=== PATIENT | female | born 1945 | race Caucasian/White ===

== ENCOUNTER → 2017-09-17 07:23 | Outpatient (CLI) | payer MEDICARE, SELFPAY ==
--- NOTE | 2017-09-17 07:40 | BI_ITS ---
MAMMOGRAPHY - BILATERAL SCREENING REASON FOR EXAM: Female, 72 years old. Routine annual screening examination. PERTINENT HISTORY: Non-contributory. Prior left excisional breast biopsy. TECHNIQUE: Digital bilateral breast iglesia (3D mammographic acquisition) in the CC and MLO projections. 2-D mediolateral oblique (MLO) and craniocaudad (CC) views of both breasts were obtained. CAD: Full Field Digital Mammography with Computer Added Detection was performed. COMPARISON: Comparison is made with prior study dated September 13, 2016 and September 07, 2015. FINDINGS: Breast Composition: The breasts are heterogeneously dense, which may obscure small masses. There are no dominant masses or suspicious calcifications. Stable benign-appearing bilateral axillary lymph nodes. No other significant abnormalities are identified. There has been no significant change since the prior study. BI/SCREENING MAMM (CAD), BILAT IMPRESSION: Stable bilateral screening mammogram. Yearly follow-up mammogram recommended. (A) ASSESSMENT CATEGORY: BIRADS Category 2: Benign. A letter regarding these results will be sent to the patient by the facility within 30 days. Approximately 10% of breast cancers are not detected by mammography. A normal mammogram should not delay biopsy of a clinically suspicious abnormality. [id number] Electronically Signed: Pablo Gonzales MD at 9:28 EDT Tel [phone], Service support ,
== END ==
PROVIDERS: Family Provider Family Medicine; PCP Family Medicine; Visit Provider Family Medicine
DX: Z12.31 Encounter for screening mammogram for malignant neoplasm of breast (principal)
CPT/HCPCS: 77063; 77067

== ENCOUNTER 2018-01-10 09:00 | Outpatient (RCR) | payer MEDICARE, SELFPAY ==
--- NOTE | 2017-11-28 11:14 | HP.PTEVAL ---
Patient's Visit Information SHABBIR LEZAMA is a 72 year old F referred to Physical Therapy by Brandon Garcia with a diagnosis of Unsteady gait. Date of Evaluation: 11/28/17 Physical Therapist: Wilbert Gifford DPT, OC - Visit Plan Frequency: 2x /Week Duration: 4-6 Weeks Plan: Neurocom balance test and then. 2x/week for 4 weeks for balance(stepping over and VOR and turns), LE strength and posture ex that can be done at home with minimal equipment and work to I. - Subjective Subjective: I have been falling. Retired from job and all ex 10 years ago. Now bumps into things and doesn't walk straight. Fell two years ago into drywall. November 14 fell down front steps adn banged head. Fell a couple days later again in bedroom. Figured it was time to figure out what is going on. Saw doctor and blood pressure started to go up. No fractures with fall. Not sure why she falls. Just lost balance. Not dizzy except short duration upon standing. No obvious neuropathy. 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 No AD used or needed. Spends day doing houseduties. Has two sets of stairs she does daily. Works in yard when it is not too hot. Watches TV and makes gift cards. no regular ex, Back hurts if up too much. Sleep is good most of time. [facility] ADLs are OK. - Objective Walks in and out of PT safe and I. Trasnfers without UE I, Steps reciprocal without UE btu hesitant. Full UE adn LE AROM. Sensation in LE to gross light touch is good. reflexes 2/3 patella and achilles. Strength LE 4/5. Posture is fair adn without pain. coordination to reciprocal tapping is fair in UE adn LE. On balance tests, turning is slow and stepping over is hesitant and VOR walking is tough for patient. - Balance Scores Functional Gait Assessment Score: 23 % Disability: 23.3400 CATSIB Score (Max score 120 seconds): 102 - Goals Goal 1:: FGA to diminish fall risk. Goal Time Frame: 4-6 Weeks Goal 2:: I approp HEp for LE strength posture, balance Goal Time Frame: 4-6 Weeks Goal 3:: Neurocom test adn review results for ex prescription Goal Time Frame: 2-4 Weeks Goal 4:: Pt feel 50% improved overall activity level. Goal Time Frame: 4-6 Weeks - Rehabilitation Potential Physical Therapy Diagnosis: Falls and unsteady gait. Rehabilitation Potential: Fair - Anticipated Interventions Patient/Client Instruction: Educate patient on: Condition, Risk Factors For the Purpose of:: To improve safety Therapeutic Exercise to Include: Strength training, Balance training, Gait and locomotor training For the Purpose of:: To improve muscle performance and motor function, To improve safety with gait Thank you for the opportunity to evaluate your patient. For Medicare and Medicare HMO plans, please review the plan of care and approve it. It will need to be FAXED BACK to us at [phone] for Medicare purposes. Please let me know if there are questions or concerns regarding this plan of care. Physician Signature: Date:
--- NOTE | 2017-12-06 13:30 | HP.PTCOM_ITS ---
PT Communication Note 12/06/[address] Brandon Garcia , Thank you for the referral of Aviva to [facility] for balance assessment. I have enclosed a copy of the results for your review. In summation, she scored low on the vestibular and visual part of the Sensory Organization Test. She scored low on the forward excursion on the Limits of Stability test. She scored well on the Motor Control Test. With these results in mind, I plan to see her 2x/week for 4 weeks to progress to home balance and strength exercises that will address these deficits. Please call if you have questions. Thank you for this referral. Sincerely, Wilbert Gifford DPT, OC Contact Information
--- NOTE | 2018-01-10 09:33 | HP.PTDCSUM_ITS ---
HP - PT D/C Summary It has been my pleasure to treat SHABBIR Heath TURNING under orders from Brandon Garcia , for the diagnosis of Unsteady gait for a total of 10 visit(s). Discharge Date: 01/10/18 Please see the following information for a summary of their discharge status. - Subjective Subjective: More confident with walking and more aware of balance multi tasking. No falls or LOB. HEP - Overall Improvement % Improvement: 90 - Objective Objective/Function: +6 on FGA, and perfect romberg test to 30 seconds today. MUCH BETTER OVERALL AND HAPPY TO CONTINUE VIA HEP. - Goals Goal 1:: FGA to diminish fall risk. Goal Progress: Goal Met Goal 2:: I approp HEp for LE strength posture, balance Goal Progress: Goal Met Goal 3:: Neurocom test adn review results for ex prescription Goal Progress: Goal Met Goal 4:: Pt feel 50% improved overall activity level. Goal Progress: Goal Met - Plan Plan: D/C to HEP - D/C Information Discharge Comments: Pt worked hard and is significantly better subjectivelya dn objectively. Will continue via HEP. If there are questions or concerns regarding this patient's physical therapy, please feel free to call me at [phone]. Thank you for the referral of this patient. Sincerely, Wilbert Gifford, DPT, OC
== END 2018-01-10 19:00 | disposition home or self-care (01) ==
LOC: PT 09:00
PROVIDERS: Family Provider Family Medicine; PCP Family Medicine; Visit Provider Family Medicine
DX: R26.81 Unsteadiness on feet (principal); R29.6 Repeated falls
CPT/HCPCS: 97110; 97162; 97530; 97750

== ENCOUNTER → 2018-04-30 11:02 | Outpatient (CLI) | payer MEDICARE, SELFPAY ==
[2018-04-30 12:32] LABS: Anion Gap 4 (5-15); BUN 11 mg/dL (7-18); BUN/Creat Ratio 21.9 RATIO (10-20); Calcium,Total 8.8 mg/dL (8.5-10.1); Chloride 97 mmol/L (98-107); EST Glomerular Filtration Rate 127 mL/min (>60); Est Glom Filt Rate - Afr Amer 154 mL/min (>60); Glucose 100 mg/dL (74-106); Potassium 3.8 mmol/L (3.5-5.1); Sodium Level 133 mmol/L (136-145)
--- OUTSIDE RECORDS SUMMARY | 2018-06-25 19:34 | XMS RPT_ITS ---
:1945 Author Organization OHIP Care Team Providers Name Role Phone Brandon Garcia Attending Unavailable Garcia, Brandon Referring Unavailable Garcia, Brandon Primary Care Unavailable Garcia, Brandon Attending Unavailable Garcia, Brandon Referring Unavailable Garcia, Brandon Primary Care Unavailable Garcia, Brandon Attending Unavailable Garcia, Brandon Referring Unavailable Garcia, Brandon Primary Care Unavailable PROBLEMS PROBLEMS DATE TYPE CONDITION / CODE ATTENDING STATUS SOURCE 01/14/2018 Unknown R26.81 - Brandon Garcia Unsteadiness on [facility] R26.81(ICD-10) Repository 10/04/2017 Unknown Z12.31 - Encounter Brandon Garcia for screening Community mammogram for [facility] malignant neoplasm Repository of breast / Z12.31(ICD-10) PROCEDURES PROCEDURES No Procedure Records FoundRESULTS RESULTS BASIC METABOLIC Collected: 04/30/2018 Status: F Source: KEV PROFILE (BMP) 11:05 AM [facility] REPOSITORY TYPE CODE TESTS RESULT OUT OF RANGE REFERENCE UNITS LAB L501.0100 74-106 mg/dL Normal GLU 100 Result Comment: Fasting Glucose result from 100 to 125 mg/dL suggests IMPAIRED HOMEOSTASIS per A.D.A. criteria. Please note revised GLUCOSE reference range effective 2017. LAB L501.1000 7-18 mg/dL Normal BUN 11 LAB L501.1100 0.55-1.02 mg/dL Low CREAT,SERUM 0.50 Result Comment: The validity of the calculated GFR AND GFRAA in patients over 70 years has not been determined. Clinical correlation is essential. LAB L501.1110 >60 mL/min Normal EST GFR 127 Result Comment: Non- GFR Calc LAB L501.1115 >60 mL/min Normal EST GFR - AA 154 Result Comment: GFR Calc LAB L501.1300 10-20 RATIO High BUN/CRE 21.9 LAB L501.2200 8.5-10.1 mg/dL CA Normal 8.8 LAB L501.5300 136-145 mmol/L Low NA 133 LAB L501.5600 3.5-5.1 mmol/L K Normal 3.8 LAB L501.5900 98-107 mmol/L Low CL 97 LAB L501.6100 21.0-32.0 mmol/L Normal CO2 32.0 LAB L501.6200 5-15 Low GAP 4 Performed By: #### L500.2500 #### [facility] [address] [place], [address] PT D/C SUMMARY (1) Observed: 01/13/2018 Status: F Source: [place] 6:38 AM [facility] REPOSITORY [facility] [address] [place] [address]. [address] [place], [place] [address] Fax REHABILITATION SERVICES DISCHARGE SUMMARY MR#: [id number] Acct: [id number] Name: SHABBIR LEZAMA Rep #: [id number] : 1945 72 From: Wilbert Gifford DPT, OCS, CSCS Referring Dr.: Brandon Garcia MD Status: REG RCR Insurance: [employer] [facility] SELF PAY INSURANCE HP - PT D/C Summary It has been my pleasure to treat SHABBIR LEZAMA under orders from Brandon Garcia, for the diagnosis of Unsteady gait for a total of 10 visit(s). Discharge Date: 01/10/18 Please see the following information for a summary of their discharge status. - Subjective Subjective: More confident with walking and more aware of balance multi tasking. No falls or LOB. HEP - Overall Improvement % Improvement: 90 - Objective Objective/Function: +6 on FGA, and perfect romberg test to 30 seconds today. MUCH BETTER OVERALL AND HAPPY TO CONTINUE VIA HEP. - Goals Goal 1:: FGA to diminish fall risk. Goal Progress: Goal Met Goal 2:: I approp HEp for LE strength posture, balance Goal Progress: Goal Met Goal 3:: Neurocom test adn review results for ex prescription Goal Progress: Goal Met Goal 4:: Pt feel 50% improved overall activity level. Goal Progress: Goal Met - Plan Plan: D/C to HEP - D/C Information Discharge Comments: Pt worked hard and is significantly better subjectivelya dn objectively. Will continue via HEP. If there are questions or concerns regarding this patient's physical therapy, please feel free to call me at [phone]. Thank you for the referral of this patient. Sincerely, Wilbert Gifford DPT OC <Electronically signed by HEDY Reyes DPT, CSCS> 01/13/18 0638 CC: Brandon Garcia MD EBG Signed PT COMMUNICATION Observed: 12/10/2017 Status: F Source: [place] 9:21 AM [facility] REPOSITORY [facility] [address] [place] [address] Fax REHABILITATION SERVICES PROGRESS NOTE MR#: [id number] Acct: [id number] Name: SHABBIR LEZAAM Rep #: [id number] : 1945 72 From: HEDY Reyes DPT, CSCS Referring Dr.: Brandon Garcia MD Status: REG RCR Insurance: [employer] [facility] SELF PAY INSURANCE PT Communication Note 12/06/[address] Brnadon Garcia , Thank you for the referral of [facility]. I have enclosed a copy of the results for your review. In summation, she scored low on the vestibular and visual part of the Sensory Organization Test. She scored low on the forward excursion on the Limits of Stability test. She scored well on the Motor Control Test. With these results in mind, I plan to see her 2x/week for 4 weeks to progress to home balance and strength exercises that will address these deficits. Please call if you have questions. Thank you for this referral. Sincerely, Wilbert Gifford DPT, OC Contact Information 12/10/17 0921 <Electronically signed by Wilbert Balta DPT, OCS, CSCS> Date Wilbert Gifford DPT OCS, CSCS Cosigner Signature (if applicable): Date CC: Brandon Garcia MD Signed For Medicare only, by signing this I certify the plan of care. Physicians Signature Date INITAL EVALUATION (1) Observed: 12/02/2017 Status: F Source: [facility] 6:39 AM [facility] REPOSITORY [facility] [address] [place] [address]. [address] [place], [place] [address] Fax REHABILITATION SERVICES INITIAL EVALUATION MR#: [id number] Acct: [id number] Name: SHABBIR LEZAMA Rep #: [id number] : 1945 72 From: HEDY Reyes DPT, CSCS Referring Dr.: Brandon Garcia MD Status: REG R Insurance: [facility] SELF PAY INSURANCE Patient's Visit Information SHABBIR LEZAMA is a 72 year old F referred to Physical Therapy by Brandon Garcia with a diagnosis of Unsteady gait. Date of Evaluation: 11/28/17 Physical Therapist: Wilbert Gifford DPT, OC - Visit Plan Frequency: 2x /Week Duration: 4-6 Weeks Plan: Neurocom balance test and then. 2x/week for 4 weeks for balance(stepping over and VOR and turns), LE strength and posture ex that can be done at home with minimal equipment and work to I. - Subjective Subjective: I have been falling. Retired from job and all ex 10 years ago. Now bumps into things and doesn't walk straight. Fell two years ago into drywall. November 14 fell down front steps adn banged head. Fell a couple days later again in bedroom. Figured it was time to figure out what is going on. Saw doctor and blood pressure started to go up. No fractures with fall. Not sure why she falls. Just lost balance. Not dizzy except short duration upon standing. No obvious neuropathy. 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 No AD used or needed. Spends day doing houseduties. Has two sets of stairs she does daily. Works in yard when it is not too hot. Watches TV and makes gift cards. no regular ex, Back hurts if up too much. Sleep is good most of time. [facility]si ADLs are OK. - Objective Walks in and out of PT safe and I. Trasnfers without UE I, Steps reciprocal without UE btu hesitant. Full UE adn LE AROM. Sensation in LE to gross light touch is good. reflexes 2/3 patella and achilles. Strength LE 4/5. Posture is fair adn without pain. coordination to reciprocal tapping is fair in UE adn LE. On balance tests, turning is slow and stepping over is hesitant and VOR walking is tough for patient. - Balance Scores Functional Gait Assessment Score: 23 % Disability: 23.3400 CATSIB Score (Max score 120 seconds): 102 - Goals Goal 1:: FGA to diminish fall risk. Goal Time Frame: 4-6 Weeks Goal 2:: I approp HEp for LE strength posture, balance Goal Time Frame: 4-6 Weeks Goal 3:: Neurocom test adn review results for ex prescription Goal Time Frame: 2-4 Weeks Goal 4:: Pt feel 50% improved overall activity level. Goal Time Frame: 4-6 Weeks - Rehabilitation Potential Physical Therapy Diagnosis: Falls and unsteady gait. Rehabilitation Potential: Fair - Anticipated Interventions Patient/Client Instruction: Educate patient on: Condition, Risk Factors For the Purpose of:: To improve safety Therapeutic Exercise to Include: Strength training, Balance training, Gait and locomotor training For the Purpose of:: To improve muscle performance and motor function, To improve safety with gait Thank you for the opportunity to evaluate your patient. For Medicare and Medicare HMO plans, please review the plan of care and approve it. It will need to be FAXED BACK to us at [phone] for Medicare purposes. Please let me know if there are questions or concerns regarding this plan of care. Physician Signature: Date: <Electronically signed by Wilbert Gifford DPT, OCS, CSCS> 12/02/17 0639 CC: Brandon Garcia MD EBG Signed For Medicare only, by signing this I certify the plan of care. Physicians Signature Date SCREENING MAMM (CAD), Observed: 09/17/2017 Status: F Source: [facility] 7:40 AM [facility] REPOSITORY [facility] Imaging Services [address] [place] [id number] SCREENING MAMM (CAD), BIL MR#: [id number] Acct: [id number] Name: SHABBIR LEZAMA Rep #: [id number] : 1945 F 72 From: Pablo Gonzales MD PCP: Brandon Garcia MD Status: REG CLI Study: SCREENING MAMM (CAD), BIL Date of Exam: 09/17/17 Exam# [id number] Ordering Dr: Brandon Garcia MD MAMMOGRAPHY - BILATERAL SCREENING REASON FOR EXAM: Female, 72 years old. Routine annual screening examination. PERTINENT HISTORY: Non-contributory. Prior left excisional breast biopsy. TECHNIQUE: Digital bilateral breast iglesia (3D mammographic acquisition) in the CC and MLO projections. 2-D mediolateral oblique (MLO) and craniocaudad (CC) views of both breasts were obtained. CAD: Full Field Digital Mammography with Computer Added Detection was performed. COMPARISON: Comparison is made with prior study dated September 13, 2016 and September 07, 2015. FINDINGS: Breast Composition: The breasts are heterogeneously dense, which may obscure small masses. There are no dominant masses or suspicious calcifications. Stable benign-appearing bilateral axillary lymph nodes. No other significant abnormalities are identified. There has been no significant change since the prior study. BI/SCREENING MAMM (CAD), BILAT IMPRESSION: Stable bilateral screening mammogram. Yearly follow-up mammogram recommended. (A) ASSESSMENT CATEGORY: BIRADS Category 2: Benign. A letter regarding these results will be sent to the patient by the facility within 30 days. Approximately 10% of breast cancers are not detected by mammography. A normal mammogram should not delay biopsy of a clinically suspicious abnormality. [id number] Electronically Signed: Pablo Gonzales MD at 9:28 EDT Tel [phone], Service support , CC: Brandon Garcia MD Sensor Technician: Signed ALLERGIES ALLERGIES No Allergies Records FoundENCOUNTERS ENCOUNTERS ADMIT/DISCHARGE ACCOUNT ADMITTING ENCOUNTER LOCATION SOURCE NUMBER CLASS 04/30/2018 [id number] Ambulatory [place] [facility] ing:MTLAB Repository 01/10/2018/ [id number] Ambulatory [facility] [place] [facility] 1 [facility] ing:PT Repository 09/17/2017 [id number] Amb[facility] [place] [facility] ing:OPBI Repository PAYERS PAYERS ENCOUNTER GUARANTOR PAYER SUBSCRIBER SOURCE 04/30/2018 SHABBIR Heath Primary SHABBIR Angulo [id number] Insurance:AETPETRA TURNINGDOB: [facility] [place]: [id number] [id number] Repository [address]60[address]Eqd: ([phone]) Date:[id number] [phone] (PI) [id number] CASEY AVINA [phone]: 04/30/2018 Secondary NOT GIVENUNK [place] Insurance:SELF PAY [facility] Number: Effective Repository Date:2018-04-30 01/10/2018 SHABBIR E Primary SHABBIR E [place]ev [id number] Insurance:AETNA TURNINGDOB: Community YEIMI MCRPolicy [place]: [id number], [place] [id number] Repository [address]Udx: (330) Date:[id number] [phone] () [id number] [place] [address]SQ: 01/10/2018 Secondary NOT GIVENUNK [place] Insurance:SELF PAY [facility] Number: Effective Repository Date:2017-11-25 09/17/2017 SHABBIR E Primary SHABBIR E Kev [id number] Insurance:AETNA TURNINGDOB: Community YEIMI [facility] Number: [id number] [id number] Repository [address]Kts: (330) Date:[id number] [phone] () [id number] [place] [address]FT: 09/17/2017 Secondary NOT GIVENUNK [place] Insurance:SELF PAY [facility] Number: Effective Repository Date:2017
== END ==
PROVIDERS: Family Provider Family Medicine; PCP Family Medicine; Referring Provider Family Medicine; Visit Provider Family Medicine
DX: I10 Essential (primary) hypertension (principal)
CPT/HCPCS: 36415; 80048

== ENCOUNTER 2018-08-18 06:13 | Day surgery (SDC) | payer MEDICARE, SELFPAY ==
[2018-07-21 09:01] VITALS: BMI 29.5
[2018-08-18 06:43] VITALS: BP 150/70; PULSE 74; RESP 16; TEMP 36.4; O2SAT 95; BMI 28.3
[2018-08-18 08:00] VITALS: BP 149/84; BP 150/70; PULSE 65; RESP 16; TEMP 36.3; O2SAT 96
[2018-08-18 08:05] VITALS: BP 148/78; BP 150/70; PULSE 65; RESP 16; O2SAT 93
--- NOTE | 2018-08-18 08:06 | OP.ENDO_ITS ---
08/18/2018 Brnadon Garcia [address] [place] [address] Re : Colonoscopy procedure for Aviva Turning Dear Dr. Garcia This procedure was performed on Saturday, August 18, 2018. My impressions and recommendations are as follows: Impressions : - Hemorrhoids found on perianal exam. - Diverticulosis in the sigmoid colon. No specimens collected. - Prolapsed external and internal hemorrhoids. Recommendations : - Repeat colonoscopy in 10 years for screening purposes. - Return to my office in 1 week. - Continue present medications. My findings are described in the full procedure note, which is enclosed. If I can be of further assistance, please feel free to contact me at Doctor phone number(s): , Fax: [phone], Work: . Sincerely, MD Zackary Fields MD 08/18/2018 8:06:08 AM This report has been signed electronically.
[2018-08-18 08:10] VITALS: BP 150/70; BP 153/85; PULSE 66; RESP 16; O2SAT 94
[2018-08-18 08:15] VITALS: BP 150/70; BP 160/83; PULSE 66; RESP 16; TEMP 36.3; O2SAT 94
[2018-08-18 08:50] VITALS: BP 150/70
== END 2018-08-18 08:52 | disposition home or self-care (01) ==
LOC: EN 06:14 → AC 06:15
PROVIDERS: Family Provider Family Medicine; PCP Family Medicine; Referring Provider Surgery; Visit Provider Surgery
PROC: 0DJD8ZZ Inspection of Lower Intestinal Tract, Via Natural or Artificial Opening Endoscopic (ICD-10-PCS; CPT 45378; principal; 2018-08-18 07:25)
DX: K62.5 Hemorrhage of anus and rectum (principal); K64.1 Second degree hemorrhoids; K64.8 Other hemorrhoids; K57.30 Diverticulosis of large intestine without perforation or abscess without bleeding; I10 Essential (primary) hypertension; F32.9 Major depressive disorder, single episode, unspecified; F41.9 Anxiety disorder, unspecified; Z78.0 Asymptomatic menopausal state; Z79.899 Other long term (current) drug therapy; Z85.828 Personal history of other malignant neoplasm of skin
CPT/HCPCS: 45378; J7120; J1610

== ENCOUNTER 2018-09-05 06:15 | Day surgery (SDC) | payer MEDICARE, SELFPAY ==
[2018-08-28 13:36] VITALS: BMI 27.5
[2018-09-05 06:31] VITALS: BP 167/80; PULSE 69; RESP 16; TEMP 37.1; O2SAT 95; BMI 27.6
[2018-09-05] MEDS: Cefazolin 2 GM in 0.9% Normal Saline 100 ML IV (07:48)
--- NOTE | 2018-09-05 07:55 | DCINST_ITS ---
Discharge Diet: Light diet - advance as tolerated - If you have questions about your diet instructions, please talk to your doctor. Discharge Activity: May Not Drive - for 1 week or while taking narcotic pain medicine. May shower in (days): 1 Lifting Restrictions: 10 pounds Additional Activity Instructions:: Please soak in warm Epsom salts twice a day. 2 cups of Epsom salts and to a hot bath water. Soak for 20 minutes at least. Call your doctor if your incision/area has: Continuous Slow Oozing, Sudden Increased Bleeding, Increased Pain/ Swelling, Increased Redness, Foul Smelling Discharge Call your doctor if you observe: Fever of 101 or Higher Suture Line Care: Avoid Pulling/Pushing, Avoid Pinching/Bending Additional Dressing/Incision Instructions:: Please apply dibucaine ointment as needed. Allergies/Adverse Reactions: Allergies acetaminophen [From Vicodin] Adverse Reaction (Verified 09/01/18 14:09) Nausea/Vom/Diarrhea hydrocodone [From Vicodin] Adverse Reaction (Verified 09/01/18 14:09) Nausea/Vom/Diarrhea lisinopril Adverse Reaction (Verified 09/01/18 13:59) cough oxycodone [From Percocet] Adverse Reaction (Verified 09/01/18 14:09) Nausea/Vom/Diarrhea Medications to take at Discharge multivitamin,wh-wuvm-cnbssabt tablet 1 tab PO DAILY 07/21/18 paroxetine 20 mg tablet 20 mg PO QHS 07/21/18 Acetaminophen/Codeine #3 [Tylenol#3] 1 - 2 tab PO Q4H PRN PRN 6 Days #30 tab 09/05/18 The following prescriptions were given: Acetaminophen/Codeine #3 [Tylenol#3] 1 - 2 tab PO Q4H PRN PRN 6 Days #30 tab PRN Reason: Pain Primary Care Physician: Brandon Garcia MD [Primary Care Provider] - Test Results: Test results from this visit will be discussed in further detail at your follow- up appointment, if applicable. Please Follow Up With: Zackary Leyva MD - [phone] When: Call to make an appointment to be seen in about 10 days.
--- NOTE | 2018-09-05 07:55 | PCM.OPRPT ---
Problem List (1) Hemorrhoid prolapse Status: Acute (2) Rectal bleeding Status: Acute Report of Operation Date of Procedure: 09/05/18 Pre-Operative Diagnosis: Hemorrhoidal prolapse. Rectal bleeding Post-Operative Diagnosis: Same Surgery/Procedure Performed:: Exam under anesthesia with hemorrhoidectomy Type of Anesthesia:: General Anesthesiologist: Kendall Castillo Specimen's removed: Internal and external hemorrhoids Estimated Blood Loss (mL): < 25 cc Description of Procedure: Patient was brought into the operating room placed in the supine position under excellent LMA anesthetic her legs were placed up in stirrups exposing her perineum and anal area. This was sterilely prepped and draped in the usual fashion. Patient was noted to have an anterior right-sided prolapsing hemorrhoid with an external component. I injected Exparel. I used the harmonic dissector removing the external component going into the internal component. I was able to place a 3-0 chromic suture at the end of the internal hemorrhoid I then transected the hemorrhoid and sent it to pathology for permanent sectioning. I then took the mucosa side to side bring it together with a 3-0 chromic in a locking suture fashion and extending it towards the outside in similar fashion. I tied the 3-0 chromic to itself. No other hemorrhoids were showing both in internal and external component she did have 2 other hemorrhoids on the external component but I did not feel was necessary to do anything to those at this time given the fact that it was this prolapsing internal hemorrhoid that was giving her all of her problems. General inspection did not reveal any masses. I injected the rest of the Exparel around the perianal area dibucaine-soaked Gelfoam was then placed into the anus sterile dressing was applied and the patient tolerated the procedure well. - Admit VTE Documentation VTE Present on Admission: No VTE Mechan Device Prophylaxis: SCD's VTE Pharm Prophylaxis ordered?: No Reason prophylaxis not ordered:: Treatment Not Indicated
--- NOTE | 2018-09-05 08:00 | HEM_PTH ---
PATIENT: SHABBIR LEZAMA [place] [facility] [id number] AGE/SX: 73/F ROOM: RE09/05/[address]: Dr. Zackary Leyva MD : 1945 BED: DIS: 09/05/2018 SPEC #: [id number] RECD: 09/05/18 09:48 STATUS: TAMI REDk #: [id number] SANTIAGO: 09/05/18 08:[address]: Zackary Leyva DEPT: SURGICAL PATHOLOGY RECD BY: Wilbur Ray ENTERED: 09/05/18 10:54 SP TYPE: HEMORRHOID OTHR DR: Dr. Brandon Garcia MD Tissues: HEMORRHOIDS Procedures: Surgery Specimen Level IV HEADER OPERATION: EUA, hemorrhoidectomy PRE-OP DIAGNOSIS: Hemorrhoid prolapse, rectal hemorrhage TISSUE SUBMITTED: Hemorrhoids MICROSCOPIC DIAGNOSIS Hemorrhoid: A piece of anorectal mucosa with dilated and congested blood vessels, consistent with hemorrhoid. 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 See comment. ANJUM:praful 09/08/18 COMMENT The grossly identified lesion on the surface is consistent with rectal mucosal prolapse syndrome. Case has been reviewed in consultation with Dr. Mccormack who concurs with the above diagnosis. IDC:AM MICROSCOPIC DESCRIPTION Slides are reviewed. GROSS DESCRIPTION Received in fixative is one container labeled with the patient's name and designated hemorrhoids. The specimen consists of a piece of submucosal tissue measuring 3 x 2.5 x 1.5 cm. The mucosal surface shows a snell, raised lesion measuring 1.5 x 1 cm. The resection margins are inked black. The specimen is serially sectioned and submitted entirely in five cassettes from one end to another end. / ANJUM:praful 09/05/18 TC:5 CPT: 01606
[2018-09-05] MEDS: Lubricating Jelly 60 GM Tube 30 GM TOPICAL (08:10)
[2018-09-05] MEDS: BUPIVACAINE LIPOSOME/PF 20 ML VIAL OPERA.SITE (08:10)
[2018-09-05] MEDS: Dibucaine 30 GM Tube 1 APPLIC (08:26)
[2018-09-05 08:38] VITALS: BP 138/72; BP 167/80; PULSE 72; RESP 16; TEMP 36.5; O2SAT 97
[2018-09-05 08:45] VITALS: BP 124/86; BP 167/80; PULSE 72; RESP 18; O2SAT 94
[2018-09-05 09:00] VITALS: BP 122/77; BP 167/80; PULSE 72; RESP 18; TEMP 36.5; O2SAT 95
[2018-09-05 09:40] VITALS: BP 142/67; BP 167/80; PULSE 72; RESP 18; TEMP 36.7; O2SAT 95
== END 2018-09-05 09:44 | disposition home or self-care (01) ==
LOC: SDC 06:17 → AC 06:18
PROVIDERS: Family Provider Family Medicine; PCP Family Medicine; Referring Provider Surgery; Visit Provider Surgery
PROC: (CPT 46255; principal; 2018-09-05 07:45)
DX: K64.8 Other hemorrhoids (principal); K62.5 Hemorrhage of anus and rectum; Z79.899 Other long term (current) drug therapy; Z78.0 Asymptomatic menopausal state; I10 Essential (primary) hypertension; F41.9 Anxiety disorder, unspecified; F32.9 Major depressive disorder, single episode, unspecified; Z85.828 Personal history of other malignant neoplasm of skin
CPT/HCPCS: 46255; 88304; 88305; J7120; J2405

== ENCOUNTER 2018-09-16 17:59 | Observation (INO) | payer MEDICARE, SELFPAY ==
[2018-09-16] VITALS (11 sets, daily range): BP systolic 55–160; BP diastolic 39–100; PULSE 79–111; RESP 13–21; TEMP 35.6–36.9; O2SAT 95–100; BMI 26.9; BMI 28.4; BMI 28.5
--- NOTE | 2018-09-16 18:17 | ED.VISSUMM ---
- ER Visit Summary Date of Service: 09/16/18 Chief Complaint: Rectal bleeding History of Present Illness: The patient is a 73 F who had a hemorrhoidectomy performed on September [address] Leyva. Patient states she has had some mild bleeding intermittently. Today around 5 PM she felt like she had a pass gas. She passed a large amount of bright red blood with clots. In the past hour she has showed 2 pairs of close with passage of blood. On arrival to the ED she passed a large amount of bright red blood with clots. Physical Examination: Blood pressure is 160/87, heart rate 111. Patient lying in bed no acute distress. Heart is regular rate and rhythm. Lungs sounds are clear. Abdomen is soft and nontender. Rectal examination reveals dried blood around the anus. No obvious hemorrhoids at this time. Test Results: CBC was a white count 11.4. Hemoglobin is 13. Chemistry studies grossly unremarkable. Emergency Department Course and Treatment: Patient was rechecked after approximately 30 minutes. She had blood through the Gelfoam packing, underclothes, and onto the blankets and sheets. I spoke with Dr. Yoo, on-call for Dr. Leyva. She presented to the emergency room and packed the patient's wound. OR team has been called in. Treatment Plan: [] Disposition: Admit Impression: Rectal bleeding status post hemorrhoidectomy This note was generated with [employer] dictation software. It may contain incorrect words, spelling, and punctuation that were not noted in review of the chart prior to signing ED Disposition - Plan for ED Patient:
[2018-09-16] MEDS: 0.9% Normal Saline 1,000 ML 150 ML IV (18:25)
[2018-09-16 18:54] LABS: Absolute Lymphocyte Count 2.63 X10^3/ul (0.83-4.51); Absolute Neutrophil Count 7.7 X10^3/uL (2.0-7.7); Basophil# 0.03 X10^3/uL; Basophil% 0.3 % (0-1); Eosinophil# 0.29 X10^3/uL; Eosinophils% 2.5 % (0-5); Hematocrit 39.1 % (37-47); Hemoglobin 13.2 g/dl (12.0-15.0); Lymphocyte # 2.63 X10^3/ul (4.0); Mean Corp Hgb Conc 33.8 g/gl (32-36); Mean Corpuscular Hgb 28.3 pg (27.0-32.0); Mean Corpuscular Volume 83.7 fL (81-99); Mean Platelet Vol. 10.5 fl (6.2-12.0); Monocyte# 0.74 X10^3/uL; Monocyte% 6.5 % (0-10); Neutrophil # 7.69 X10^3/uL (2.7-7.7); Neutrophil % 67.2 % (47-70); Platelet Count 230 K/mm3 (150-450); RBC Distribution Width CV 13.5 % (11.6-14.6); RBC Distribution Width SD 41.1 fl (35.1-43.9); Red Blood Count 4.67 M/mm3 (4.2-5.4); White Blood Count 11.4 K/mm3 (4.4-11.0)
[2018-09-16 18:58] LABS: Anion Gap 8 (5-15); BUN 14 mg/dL (7-18); BUN/Creat Ratio 24.6 RATIO (10-20); Calcium,Total 8.7 mg/dL (8.5-10.1); Chloride 104 mmol/L (98-107); Creatinine, Serum 0.57 mg/dL (0.55-1.02); EST Glomerular Filtration Rate 110 mL/min (>60); Est Glom Filt Rate - Afr Amer 134 mL/min (>60); Estimated Creatinine Clearance 43.74 ml/min; Glucose 134 mg/dL (74-106); Potassium 3.4 mmol/L (3.5-5.1); Sodium Level 137 mmol/L (136-145)
--- NOTE | 2018-09-16 19:24 | PCM.HP.STD ---
History of Present Illness Date of Admission: 09/16/18 The patient is a 73 year old F presents to ER due to bright red blood clot per rectum. Patient did undergo a hemorrhoidectomy Dr. Leyva on 09/05/2018. Patient states she had a little bit of blood previous to tonight. However at 5 PM she had a large amount of bright red blood along with some clots. Patient denies hard bowel movements or having bowel movement prior to 5 PM. Last time patient ate was she had some halos at 4 PM. Patient presented to the ER and still continues to have clot and blood per rectum. Past Medical History Medical History: Medical History (Last Reviewed 09/04/18 @ 12:21 by Zackary Leyva MD) Back pain M54.9 Hemorrhoid K64.9 HTN (hypertension) I10 Allergies acetaminophen [From Vicodin] Adverse Reaction (Verified 09/16/18 18:01) Nausea/Vom/Diarrhea hydrocodone [From Vicodin] Adverse Reaction (Verified 09/16/18 18:01) Nausea/Vom/Diarrhea lisinopril Adverse Reaction (Verified 09/16/18 18:01) cough oxycodone [From Percocet] Adverse Reaction (Verified 09/16/18 18:01) Nausea/Vom/Diarrhea Home Medications: Ambulatory Orders Medication Instructions Recorded multivitamin,ha-ojgm-[id number] 1 tab PO DAILY 07/21/18 tablet paroxetine 20 mg tablet 20 mg PO QHS 07/21/18 Amlodipine Besylate 5 mg PO DAILY 09/16/18 Surgical History: Surgical History (Last Reviewed 09/04/18 @ 12:21 by Zackary Leyva MD) History of YAG laser capsulotomy of lens of left eye Z98.42 History of back surgery Z98.890 History of cataract extraction Z98.49 History of colonoscopy Z98.890 History of hysterectomy Z90.710 History of tubal ligation Z98.51 Psychiatric History: No pertinent psych hx 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 Smoking Status: Never smoker - *Family History Maternal Family History: Family History (Last Reviewed 09/04/18 @ 12:21 by Zackary Leyva MD) Brother Heart disease Hypertension Cancer Father Aneurysm History Items: No pertinent history Review of Systems Constitutional: Denies: Chills Eyes: Denies: Blurred vision HEENT: Denies: Difficulty Swallowing Cardiovascular: Denies: Chest Pain Respiratory: Denies: Shortness of breath at rest Gastrointestinal: Reports: Hematochezia VTE Information - Inpt Only VTE Present on Admission: Yes VTE Mechan Device Prophylaxis: SCD's - Physical Exam General: Alert, Oriented x3, Cooperative, No apparent distress Lungs: Normal air movement Cardiovascular: Regular rate Abdomen: Soft, Non Tender, Non-Distended, - - Rectal exam red blood and clots per rectum, digital rectal exam: The suture of the hemorrhoidectomy area appears to have split apart. Vital Signs Temp Pulse Resp BP Pulse Ox 97.4 F L 111 H 18 160/87 H 96 09/16/18 17:59 09/16/18 17:59 09/16/18 17:59 09/16/18 17:59 09/16/18 17:59 Oxygen Delivery Method Room Air Weight: 162 lb Body Mass Index (BMI) 26.9 Laboratory Tests Past 24 Hrs 09/16/18 09/16/18 09/16/18 18:20 18:20 18:20 WBC Pending RBC Pending Hgb Pending Hct Pending MCV Pending MCH Pending MCHC Pending RDW Pending RDW Differential Pending Plt Count Pending Neut % (Auto) Pending Absolute Neuts (auto) Pending Total Counted Pending PT Pending INR Pending APTT Pending Sodium 137 Potassium 3.4 L Chloride 104 Carbon Dioxide 25.0 Anion Gap 8 BUN 14 Creatinine 0.57 Estim Creat Clear Calc 43.74 Est GFR (MDRD) Af Amer 134 Est GFR (MDRD) Non-Af 110 BUN/Creatinine Ratio 24.6 H Glucose 134 H Calcium 8.7 Blood Type Antibody Screen 09/16/18 18:40 WBC RBC Hgb Hct MCV MCH MCHC RDW RDW Differential Plt Count Neut % (Auto) Absolute Neuts (auto) Total Counted PT INR APTT Sodium Potassium Chloride Carbon Dioxide Anion Gap BUN Creatinine Estim Creat Clear Calc Est GFR (MDRD) Af Amer Est GFR (MDRD) Non-Af BUN/Creatinine Ratio Glucose Calcium Blood Type Pending Antibody Screen Pending Assessment/Plan All Active Problems (Last Reviewed 09/04/18 @ 12:21 by Zackary Leyva MD) Hemorrhoid prolapse (Acute) Rectal bleeding (Acute) 73-year-old female with bright red blood per rectum status post hemorrhoidectomy 1. Plan for exam under anesthesia. Discussed the procedure with the patient and her including but not limited to risk of bleeding, infection, need for additional surgery, and anesthesia. Patient has been agreeable to proceed. Patient and her no further questions. 2. CBC pending, patient is typed and screened Bre Yoo M.D. Pager: [phone] [facility] [address] [place] [address], [address] [place] [address] Office: [phone]
[2018-09-16 19:26] LABS: International Normalized Ratio 1.1; Prothrombin Time (Protime)PT. 13.6 SECONDS (11.7-14.9)
[2018-09-16 19:27] LABS: Partial Thromboplast Time 33.2 Seconds (24.1-36.2)
--- NOTE | 2018-09-16 19:28 | HP.PCM_ITS ---
History of Present Illness Date of Admission: 09/16/18 The patient is a 73 year old F presents to ER due to bright red blood clot per rectum. Patient did undergo a hemorrhoidectomy Dr. Leyva on 09/05/2018. Patient states she had a little bit of blood previous to tonight. However at 5 PM she had a large amount of bright red blood along with some clots. Patient denies hard bowel movements or having bowel movement prior to 5 PM. Last time patient ate was she had some halos at 4 PM. Patient presented to the ER and still continues to have clot and blood per rectum. Past Medical History Medical History: Medical History (Last Reviewed 09/04/18 @ 12:21 by Zackary Leyva MD) Back pain M54.9 Hemorrhoid K64.9 HTN (hypertension) I10 Allergies acetaminophen [From Vicodin] Adverse Reaction (Verified 09/16/18 18:01) Nausea/Vom/Diarrhea hydrocodone [From Vicodin] Adverse Reaction (Verified 09/16/18 18:01) Nausea/Vom/Diarrhea lisinopril Adverse Reaction (Verified 09/16/18 18:01) cough oxycodone [From Percocet] Adverse Reaction (Verified 09/16/18 18:01) Nausea/Vom/Diarrhea Home Medications: Ambulatory Orders Medication Instructions Recorded multivitamin,la-revd-qkokksfq 1 tab PO DAILY 07/21/18 tablet paroxetine 20 mg tablet 20 mg PO QHS 07/21/18 Amlodipine Besylate 5 mg PO DAILY 09/16/18 Surgical History: Surgical History (Last Reviewed 09/04/18 @ 12:21 by Zackary Leyva MD) History of YAG laser capsulotomy of lens of left eye Z98.42 History of back surgery Z98.890 History of cataract extraction Z98.49 History of colonoscopy Z98.890 History of hysterectomy Z90.710 History of tubal ligation Z98.51 Psychiatric History: No pertinent psych hx 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 Smoking Status: Never smoker - *Family History Maternal Family History: Family History (Last Reviewed 09/04/18 @ 12:21 by Zackary Leyva MD) Brother Heart disease Hypertension Cancer Father Aneurysm History Items: No pertinent history Review of Systems Constitutional: Denies: Chills Eyes: Denies: Blurred vision HEENT: Denies: Difficulty Swallowing Cardiovascular: Denies: Chest Pain Respiratory: Denies: Shortness of breath at rest Gastrointestinal: Reports: Hematochezia VTE Information - Inpt Only VTE Present on Admission: Yes VTE Mechan Device Prophylaxis: SCD's - Physical Exam General: Alert, Oriented x3, Cooperative, No apparent distress Lungs: Normal air movement Cardiovascular: Regular rate Abdomen: Soft, Non Tender, Non-Distended, - - Rectal exam red blood and clots per rectum, digital rectal exam: The suture of the hemorrhoidectomy area appears to have split apart. Vital Signs Temp Pulse Resp BP Pulse Ox 97.4 F L 111 H 18 160/87 H 96 09/16/18 17:59 09/16/18 17:59 09/16/18 17:59 09/16/18 17:59 09/16/18 17:59 Oxygen Delivery Method Room Air Weight: 162 lb Body Mass Index (BMI) 26.9 Laboratory Tests Past 24 Hrs 09/16/18 09/16/18 09/16/18 18:20 18:20 18:20 WBC Pending RBC Pending Hgb Pending Hct Pending MCV Pending MCH Pending MCHC Pending RDW Pending RDW Differential Pending Plt Count Pending Neut % (Auto) Pending Absolute Neuts (auto) Pending Total Counted Pending PT Pending INR Pending APTT Pending Sodium 137 Potassium 3.4 L Chloride 104 Carbon Dioxide 25.0 Anion Gap 8 BUN 14 Creatinine 0.57 Estim Creat Clear Calc 43.74 Est GFR (MDRD) Af Amer 134 Est GFR (MDRD) Non-Af 110 BUN/Creatinine Ratio 24.6 H Glucose 134 H Calcium 8.7 Blood Type Antibody Screen 09/16/18 18:40 WBC RBC Hgb Hct MCV MCH MCHC RDW RDW Differential Plt Count Neut % (Auto) Absolute Neuts (auto) Total Counted PT INR APTT Sodium Potassium Chloride Carbon Dioxide Anion Gap BUN Creatinine Estim Creat Clear Calc Est GFR (MDRD) Af Amer Est GFR (MDRD) Non-Af BUN/Creatinine Ratio Glucose Calcium Blood Type Pending Antibody Screen Pending Assessment/Plan All Active Problems (Last Reviewed 09/04/18 @ 12:21 by Zackary Leyva MD) Hemorrhoid prolapse (Acute) Rectal bleeding (Acute) 73-year-old female with bright red blood per rectum status post hemorrhoidectomy 1. Plan for exam under anesthesia. Discussed the procedure with the patient and her including but not limited to risk of bleeding, infection, need for additional surgery, and anesthesia. Patient has been agreeable to proceed. Patient and her no further questions. 2. CBC pending, patient is typed and screened Bre Yoo M.D. Pager: [phone] [facility] [address] [place] [address], [address] [place] [address] Office: [phone]
[2018-09-16 19:32] LABS: POSITIVE COUNT NO; POSITIVE DIFFERENTIAL NO; POSITIVE MORPHOLOGY NO
--- NOTE | 2018-09-16 19:34 | ED.RN ---
Addendum entered by Mirian Valle 09/16/18 19:36: GEL FOAM GAUZE SOAKED IN NS PACKED INTO RECTUM BY DR. MATA. PT TOLERATED WELL. PT REPORTS INTERMITTENT GUSHING. Original Note: DR. MATA AT BEDSIDE. VERBAL ORDERS TO OPEN NS FLUIDS FLUID BOLUS. SURGERY PREP COMPLETED. PT LAYING ON RIGHT LATERAL SIDE PER DR. MATA REQUEST. PT REPORTS DIZZINESS. SALMA CARE PROVIDED. PT CLEANED WITH BATH WIPES.
[2018-09-16] MEDS: Bupiv/Epi 0.5% Mpf 30 ML Vial (20:43)
[2018-09-16] MEDS: Dibucaine 30 GM Tube 1 APPLIC (20:55)
[2018-09-16] MEDS: Lactated Ringers 1,000 ML 130 ML IV (21:25)
--- NOTE | 2018-09-16 21:31 | PCM.OPRPT ---
Report of Operation Date of Procedure: 09/16/18 Pre-Operative Diagnosis: Rectal bleeding Post-Operative Diagnosis: Same Surgery/Procedure Performed:: Rectal exam under anesthesia, ligation of rectal bleeding Type of Anesthesia:: General/Supplemental Anesthesiologist: Aishwarya Martinez Specimen's removed: none Estimated Blood Loss (mL): 40 cc Fluids Replaced: 2000 cc, 1 unit PRBC Description of Procedure: Indication 73-year-old female status post hemorrhoidectomy on 09/05/2018 presented to the ER due to bright red blood and clots per rectum which is started today at 5PM. Patient did have several episodes of large amount of bright red clot per rectum in the ER and at home. Patient had about 300 cc of clot in her depends from transfer from ER to OR. Patient did become hypotensive once supine on the operating table. Patient did have 2 IVs started as well as given 2 L of fluid and 2 units of packed red blood cells were ordered. Patient was placed supine on the operating table. General anesthesia was induced. Patient was placed in low lithotomy. The peritoneum was prepped and draped in usual sterile fashion with Betadine. The Hill-Huynh retractors were used in the previous hemorrhoidectomy location anteriorly was noted to have a consistent slow bleed at the base and the previous sutures were no longer present. 2-0 chromic suture was placed at the base of the hemorrhoid. An additional 2-0 chromic suture was used to suture each side of the mucosa back together. There was a large amount of clot still in the rectum as well. The rectum was irrigated. This area was watched for about 15 minutes there was no new bleeding. Local anesthesia of 0.5% Marcaine and 1% lidocaine with epinephrine was used for perianal block. Gelfoam with dibucaine was placed in the anal canal. ABDs as well as mesh panties were placed. Patient was extubated. After extubation patient's blood pressure did improve to 133/67 with the addition of 2 L of fluid and 1 unit packed red blood cells. Patient was taken to the ICU in stable condition. - Complications none - Admit VTE Documentation VTE Present on Admission: Yes VTE Mechan Device Prophylaxis: SCD's
--- NOTE | 2018-09-16 22:07 | PCM.CONS.GEN ---
Problem List (1) Rectal bleeding Status: Acute Reason for Consult Date of Consultation: 09/16/18 Reason for Consultation: previous hypotension requiring monitoring overnight History of Present Illness: The patient is a 73 year old F with a significant history of hypertension who presented to the emergency department because of bright red blood per rectum and clots per rectum on the same day of consultation (09/16/2018). Patient had hemorrhoidectomy on September 05, 2018. On presentation patient was hypotensive with systolic blood pressure around 55 also she had tachycardia. She was taken to the OR and examined under anesthesia. At the OR it was found that she had some gaping for which reason sutures were placed for her previous hemorrhoidectomy. Two units of packed red blood cells were ordered. At the time of examination patient was receiving her first unit of blood. Also patient received 2LIV fluids and was on LR maintenance infusion. General surgery consulted the hospitalist service to monitor the patient's overnight because of recent hypotension. General surgery ordered follow-up H&H 4 hours post transfusion. On presentation her hemoglobin was 13.2. At the time of examination patient denies any symptoms and complained of only thirst. Past Medical History Medical History: Medical History (Last Reviewed 09/17/18 @ 04:38 by Rogelio Junior MD) Back pain M54.9 Hemorrhoid K64.9 HTN (hypertension) I10 Allergies hydrocodone [From Vicodin] Adverse Reaction (Verified 09/16/18 19:27) Nausea/Vom/Diarrhea lisinopril Adverse Reaction (Verified 09/16/18 19:27) cough oxycodone [From Percocet] Adverse Reaction (Verified 09/16/18 19:27) Nausea/Vom/Diarrhea Home Medications: Ambulatory Orders Medication Instructions Recorded multivitamin,vj-yqdl-pnleznyr 1 tab PO DAILY 07/21/18 tablet paroxetine 20 mg tablet 20 mg PO QHS 07/21/18 Amlodipine Besylate 5 mg PO DAILY 09/16/18 Surgical History: Surgical History (Last Reviewed 09/16/18 @ 22:12 by Rogelio Junior MD) History of YAG laser capsulotomy of lens of left eye Z98.42 History of back surgery Z98.890 History of cataract extraction Z98.49 History of colonoscopy Z98.890 History of hysterectomy Z90.710 History of tubal ligation Z98.51 Psychiatric History: No pertinent psych hx 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 - *Family History Maternal Family History: Family History (Last Reviewed 09/16/18 @ 22:12 by Rogelio Junior MD) Brother Heart disease Hypertension Cancer Father Aneurysm History Items: No pertinent history Review of Systems Constitutional: Denies: Chills, Fever, Weight Change HEENT: Denies: Head Aches, Sinus Congestion, Sinus Drainage Cardiovascular: Denies: Chest Pain, Palpitations Respiratory: Denies: Cough, Shortness of breath at rest, Sputum production Gastrointestinal: Reports: Hematochezia. Denies: Abdominal Pain, Nausea, Vomiting Genitourinary: Denies: Dysuria Musculoskeletal: Denies: Joint Pain, Joint Tenderness Skin: Denies: Rash, Wounds Neurological: Denies: Numbness, Tingling, Focal weakness Psychiatric: Denies: Anxiety, Depression, Homicidal Ideations, Suicidal Ideations Hematologic/ Lymphatic: Denies: Easy Bruising, Easy Bleeding - Physical Exam General: Oriented x3, Cooperative, Lethargic HEENT: Atraumatic, PERRLA, EOMI, Normocephalic Neck: Supple, No JVD, Negative Carotid Bruits Lungs: Normal air movement, Diminished Cardiovascular: Regular rate, Murmur - Prominence at the aortic area. Abdomen: Bowel Sounds Present, Soft, Non Tender, - - Dressing on rectal area with mild serosanguinous drainage Extremities: No edema, Capillary Refill Less than 3 Seconds Skin: No rashes, No breakdown Musculoskeletal: No Tenderness to Palpation of Joints or Extremities Neurological: Neuro grossly intact Psych/Mental Status: Normal Affect, Appropriate Vital Signs Temp Pulse Resp BP Pulse Ox 96.9 F L 84 16 110/65 100 09/16/18 22:00 09/16/18 22:00 09/16/18 22:00 09/16/18 22:00 09/16/18 22:00 Oxygen Flow Rate (L/min) 2 Oxygen Delivery Method Nasal Cannula Weight: 77.6 kg Body Mass Index (BMI) 28.4 Laboratory Tests Past 24 Hrs 09/16/18 09/16/18 09/16/18 18:20 18:20 18:20 WBC 11.4 H RBC 4.67 Hgb 13.2 Hct 39.1 MCV 83.7 MCH 28.3 MCHC 33.8 RDW 13.5 RDW Differential 41.1 Plt Count 230 MPV 10.5 Immature Gran % (Auto) 0.500 Neut % (Auto) 67.2 Lymph % (Auto) 23.0 [place] % (Auto) 6.5 Eos % (Auto) 2.5 Baso % (Auto) 0.3 Absolute Neuts (auto) 7.7 Absolute Lymphs (auto) 2.63 Total Counted Not Reportable PT 13.6 INR 1.1 APTT 33.2 Sodium 137 Potassium 3.4 L Chloride 104 Carbon Dioxide 25.0 Anion Gap 8 BUN 14 Creatinine 0.57 Estim Creat Clear Calc 43.74 Est GFR (MDRD) Af Amer 134 Est GFR (MDRD) Non-Af 110 BUN/Creatinine Ratio 24.6 H Glucose 134 H Calcium 8.7 Blood Type Antibody Screen Crossmatch 09/16/18 09/16/18 09/16/18 18:40 18:40 18:40 WBC RBC Hgb Hct MCV MCH MCHC RDW RDW Differential Plt Count MPV Immature Gran % (Auto) Neut % (Auto) Lymph % (Auto) [place] % (Auto) Eos % (Auto) Baso % (Auto) Absolute Neuts (auto) Absolute Lymphs (auto) Total Counted PT INR APTT Sodium Potassium Chloride Carbon Dioxide Anion Gap BUN Creatinine Estim Creat Clear Calc Est GFR (MDRD) Af Amer Est GFR (MDRD) Non-Af BUN/Creatinine Ratio Glucose Calcium Blood Type B POSITIVE Antibody Screen NEGATIVE Crossmatch See Detail See Detail Assessment/Plan All Active Problems (Last Reviewed 09/17/18 @ 04:38 by Rogelio Junior MD) Hemorrhoid prolapse (Acute) Rectal bleeding (Acute) The patient is a 73 year old F with a significant history of hypertension who presented to the emergency department because of bright red blood and clots per rectum after a recent hemorrhoidectomy and found to be hypotensive; and was taken to the OR for closure of gaping surgical wound.. Bright red blood per rectum Status post suturing by general surgery on 09/16/2018 after hemorrhoidectomy on 2018. Follow-up H&H ordered by general surgery; will follow Patient is on her first unit of blood and she will be receiving a second unit of blood per general surgery orders. Patient received 2 L of IV fluids and has maintenance LR ordered. Home blood pressure medication on hold. Trend blood pressures. Diet: clear liquids per surgery. Heart murmur ? Aortic stenosis If patient's hemoglobin and hematocrit is stable in the normal range; and heart murmur persist; in the long-term consider echocardiogram. HTN Blood pressure stable at this time. Home amlodipine held in the setting of recent hypotensive and bleeding. Trend blood pressures. Depression Paroxetine continued. DVT Prophylaxis On SCD Thank you for consulting internal medicine service. We will continue to follow. Code Visit Inpatient E&M: 60594 Init Hosp L3
--- NOTE | 2018-09-16 22:11 | CON.PCM_ITS ---
Problem List (1) Rectal bleeding Status: Acute Reason for Consult Date of Consultation: 09/16/18 Reason for Consultation: previous hypotension requiring monitoring overnight History of Present Illness: The patient is a 73 year old F with a significant history of hypertension who presented to the emergency department because of bright red blood per rectum and clots per rectum on the same day of consultation (09/16/2018). Patient had hemorrhoidectomy on September 05, 2018. On presentation patient was hypotensive with systolic blood pressure around 55 also she had tachycardia. She was taken to the OR and examined under anesthesi a. At the OR it was found that she had some gaping for which reason sutures were placed for her previous hemorrhoidectomy. Two units of packed red blood cells were ordered. At the time of examination patient was receiving her first unit of blood. Also patient received 2LIV fluids and was on LR maintenance infusion. General surgery consulted the hospitalist service to monitor the patient's overnight because of recent hypotension. General surgery ordered follow-up H&H 4 hours post transfusion. On presentation her hemoglobin was 13.2. At the time of examination patient denies any symptoms and complained of only thirst. Past Medical History Medical History: Medical History (Last Reviewed 09/17/18 @ 04:38 by Rogelio Junior MD) Back pain M54.9 Hemorrhoid K64.9 HTN (hypertension) I10 Allergies hydrocodone [From Vicodin] Adverse Reaction (Verified 09/16/18 19:27) Nausea/Vom/Diarrhea lisinopril Adverse Reaction (Verified 09/16/18 19:27) cough oxycodone [From Percocet] Adverse Reaction (Verified 09/16/18 19:27) Nausea/Vom/Diarrhea Home Medications: Ambulatory Orders Medication Instructions Recorded multivitamin,bc-ovff-cmlgwzzm 1 tab PO DAILY 07/21/18 tablet paroxetine 20 mg tablet 20 mg PO QHS 07/21/18 Amlodipine Besylate 5 mg PO DAILY 09/16/18 Surgical History: Surgical History (Last Reviewed 09/16/18 @ 22:12 by Rogelio Junior MD) History of YAG laser capsulotomy of lens of left eye Z98.42 History of back surgery Z98.890 History of cataract extraction Z98.49 History of colonoscopy Z98.890 History of hysterectomy Z90.710 History of tubal ligation Z98.51 Psychiatric History: No pertinent psych hx 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 - *Family History Maternal Family History: Family History (Last Reviewed 09/16/18 @ 22:12 by Rogelio Junior MD) Brother Heart disease Hypertension Cancer Father Aneurysm History Items: No pertinent history Review of Systems Constitutional: Denies: Chills, Fever, Weight Change HEENT: Denies: Head Aches, Sinus Congestion, Sinus Drainage Cardiovascular: Denies: Chest Pain, Palpitations Respiratory: Denies: Cough, Shortness of breath at rest, Sputum production Gastrointestinal: Reports: Hematochezia. Denies: Abdominal Pain, Nausea, Vomiting Genitourinary: Denies: Dysuria Musculoskeletal: Denies: Joint Pain, Joint Tenderness Skin: Denies: Rash, Wounds Neurological: Denies: Numbness, Tingling, Focal weakness Psychiatric: Denies: Anxiety, Depression, Homicidal Ideations, Suicidal Ideations Hematologic/ Lymphatic: Denies: Easy Bruising, Easy Bleeding - Physical Exam General: Oriented x3, Cooperative, Lethargic HEENT: Atraumatic, PERRLA, EOMI, Normocephalic Neck: Supple, No JVD, Negative Carotid Bruits Lungs: Normal air movement, Diminished Cardiovascular: Regular rate, Murmur - Prominence at the aortic area. Abdomen: Bowel Sounds Present, Soft, Non Tender, - - Dressing on rectal area with mild serosanguinous drainage Extremities: No edema, Capillary Refill Less than 3 Seconds Skin: No rashes, No breakdown Musculoskeletal: No Tenderness to Palpation of Joints or Extremities Neurological: Neuro grossly intact Psych/Mental Status: Normal Affect, Appropriate Vital Signs Temp Pulse Resp BP Pulse Ox 96.9 F L 84 16 110/65 100 09/16/18 22:00 09/16/18 22:00 09/16/18 22:00 09/16/18 22:00 09/16/18 22:00 Oxygen Flow Rate (L/min) 2 Oxygen Delivery Method Nasal Cannula Weight: 77.6 kg Body Mass Index (BMI) 28.4 Laboratory Tests Past 24 Hrs 09/16/18 09/16/18 09/16/18 18:20 18:20 18:20 WBC 11.4 H RBC 4.67 Hgb 13.2 Hct 39.1 MCV 83.7 MCH 28.3 MCHC 33.8 RDW 13.5 RDW Differential 41.1 Plt Count 230 MPV 10.5 Immature Gran % (Auto) 0.500 Neut % (Auto) 67.2 Lymph % (Auto) 23.0 [place] % (Auto) 6.5 Eos % (Auto) 2.5 Baso % (Auto) 0.3 Absolute Neuts (auto) 7.7 Absolute Lymphs (auto) 2.63 Total Counted Not Reportable PT 13.6 INR 1.1 APTT 33.2 Sodium 137 Potassium 3.4 L Chloride 104 Carbon Dioxide 25.0 Anion Gap 8 BUN 14 Creatinine 0.57 Estim Creat Clear Calc 43.74 Est GFR (MDRD) Af Amer 134 Est GFR (MDRD) Non-Af 110 BUN/Creatinine Ratio 24.6 H Glucose 134 H Calcium 8.7 Blood Type Antibody Screen Crossmatch 09/16/18 09/16/18 09/16/18 18:40 18:40 18:40 WBC RBC Hgb Hct MCV MCH MCHC RDW RDW Differential Plt Count MPV Immature Gran % (Auto) Neut % (Auto) Lymph % (Auto) [place] % (Auto) Eos % (Auto) Baso % (Auto) Absolute Neuts (auto) Absolute Lymphs (auto) Total Counted PT INR APTT Sodium Potassium Chloride Carbon Dioxide Anion Gap BUN Creatinine Estim Creat Clear Calc Est GFR (MDRD) Af Amer Est GFR (MDRD) Non-Af BUN/Creatinine Ratio Glucose Calcium Blood Type B POSITIVE Antibody Screen NEGATIVE Crossmatch See Detail See Detail Assessment/Plan All Active Problems (Last Reviewed 09/17/18 @ 04:38 by Rogelio Junior MD) Hemorrhoid prolapse (Acute) Rectal bleeding (Acute) The patient is a 73 year old F with a significant history of hypertension who presented to the emergency department because of bright red blood and clots per rectum after a recent hemorrhoidectomy and found to be hypotensive; and was taken to the OR for closure of gaping surgical wound.. Bright red blood per rectum Status post suturing by general surgery on 09/16/2018 after hemorrhoidectomy on 2018. Follow-up H&H ordered by general surgery; will follow Patient is on her first unit of blood and she will be receiving a second unit of blood per general surgery orders. Patient received 2 L of IV fluids and has maintenance LR ordered. Home blood pressure medication on hold. Trend blood pressures. Diet: clear liquids per surgery. Heart murmur ? Aortic stenosis If patient's hemoglobin and hematocrit is stable in the normal range; and heart murmur persist; in the long-term consider echocardiogram. HTN Blood pressure stable at this time. Home amlodipine held in the setting of recent hypotensive and bleeding. Trend blood pressures. Depression Paroxetine continued. DVT Prophylaxis On SCD Thank you for consulting internal medicine service. We will continue to follow. Code Visit Inpatient E&M: 53376 Init Hosp L3
--- NOTE | 2018-09-16 22:15 | NURSING ---
2125: Received patient from OR with 1 unit PRBC infusing 5: Unit of PRBC finished infusing at this time, vitals entered into computer. Patient tolerated unit of PRBC without incidence.
[2018-09-16] MEDS: Paroxetine 20 MG Tablet PO (22:52)
[2018-09-17] VITALS (22 sets, daily range): BP systolic 94–151; BP diastolic 58–95; PULSE 78–99; RESP 12–27; TEMP 35.8–36.4; O2SAT 93–99
[2018-09-17] MEDS: Lactated Ringers 1,000 ML 130 ML IV ×2 (03:59→10:04)
[2018-09-17 06:19] LABS: Absolute Lymphocyte Count 0.79 X10^3/ul (0.83-4.51); Absolute Neutrophil Count 14.1 X10^3/uL (2.0-7.7); Basophil# 0.01 X10^3/uL; Basophil% 0.1 % (0-1); Hematocrit 33.9 % (37-47); Hemoglobin 11.5 g/dl (12.0-15.0); Lymphocyte # 0.79 X10^3/ul (4.0); Lymphocyte % 5.2 % (19-41); Mean Corp Hgb Conc 33.9 g/gl (32-36); Mean Corpuscular Hgb 28.8 pg (27.0-32.0); Mean Platelet Vol. 10.7 fl (6.2-12.0); Monocyte# 0.14 X10^3/uL; Monocyte% 0.9 % (0-10); Neutrophil # 14.05 X10^3/uL (2.7-7.7); Neutrophil % 93.3 % (47-70); Platelet Count 169 K/mm3 (150-450); RBC Distribution Width CV 13.6 % (11.6-14.6); RBC Distribution Width SD 41.4 fl (35.1-43.9); Red Blood Count 3.99 M/mm3 (4.2-5.4); White Blood Count 15.1 K/mm3 (4.4-11.0)
[2018-09-17 06:23] LABS: POSITIVE COUNT NO; POSITIVE DIFFERENTIAL NO; POSITIVE MORPHOLOGY NO
[2018-09-17 06:52] LABS: Anion Gap 5 (5-15); BUN 12 mg/dL (7-18); BUN/Creat Ratio 27.6 RATIO (10-20); Calcium,Total 7.5 mg/dL (8.5-10.1); Chloride 106 mmol/L (98-107); Creatinine, Serum 0.43 mg/dL (0.55-1.02); EST Glomerular Filtration Rate 151 mL/min (>60); Est Glom Filt Rate - Afr Amer 182 mL/min (>60); Estimated Creatinine Clearance 43.74 ml/min; Glucose 158 mg/dL (74-106); Sodium Level 136 mmol/L (136-145)
--- NOTE | 2018-09-17 07:16 | PN.SURG_ITS ---
Subjective: Patient evaluated resting comfortably in bed. She notes some discomfort in the anal region. She denies bleeding. negative flatus and BM. - Physical Exam General: Alert, Oriented x3, Cooperative Abdomen: - - Anus- minimal amount of ecchymosis on the left lateral side. No active bleeding noted. Very minimal amount of light blood on the ABD pad. Vital Signs Temp Pulse Resp BP Pulse Ox 97.4 F L 84 27 H 129/79 H 94 09/17/18 04:00 09/17/18 06:00 09/17/18 06:00 09/17/18 06:00 09/17/18 06:00 Oxygen Flow Rate (L/min) 2 Oxygen Delivery Method Room Air Weight: 171 lb 1.259 oz Body Mass Index (BMI) 28.4 Intake and Output for Last 24 Hours 09/15/18 09/16/18 09/17/18 23:59 23:59 23:59 Intake Total 1969 2424 / 2424 Output Total 950 / 950 Balance 1969 1474 / 1474 Laboratory Tests Past 24 Hrs 09/16/18 09/16/18 09/16/18 18:20 18:20 18:20 WBC 11.4 H RBC 4.67 Hgb 13.2 Hct 39.1 MCV 83.7 MCH 28.3 MCHC 33.8 RDW 13.5 RDW Differential 41.1 Plt Count 230 MPV 10.5 Immature Gran % (Auto) 0.500 Neut % (Auto) 67.2 Lymph % (Auto) 23.0 [place] % (Auto) 6.5 Eos % (Auto) 2.5 Baso % (Auto) 0.3 Absolute Neuts (auto) 7.7 Absolute Lymphs (auto) 2.63 Total Counted Not Reportable PT 13.6 INR 1.1 APTT 33.2 Sodium 137 Potassium 3.4 L Chloride 104 Carbon Dioxide 25.0 Anion Gap 8 BUN 14 Creatinine 0.57 Estim Creat Clear Calc 43.74 Est GFR (MDRD) Af Amer 134 Est GFR (MDRD) Non-Af 110 BUN/Creatinine Ratio 24.6 H Glucose 134 H Calcium 8.7 Blood Type Antibody Screen Crossmatch 09/16/18 09/16/18 09/16/18 18:40 18:40 18:40 WBC RBC Hgb Hct MCV MCH MCHC RDW RDW Differential Plt Count MPV Immature Gran % (Auto) Neut % (Auto) Lymph % (Auto) [place] % (Auto) Eos % (Auto) Baso % (Auto) Absolute Neuts (auto) Absolute Lymphs (auto) Total Counted PT INR APTT Sodium Potassium Chloride Carbon Dioxide Anion Gap BUN Creatinine Estim Creat Clear Calc Est GFR (MDRD) Af Amer Est GFR (MDRD) Non-Af BUN/Creatinine Ratio Glucose Calcium Blood Type B POSITIVE Antibody Screen NEGATIVE Crossmatch See Detail See Detail 09/17/18 09/17/18 05:50 05:50 WBC 15.1 H RBC 3.99 L Hgb 11.5 L Hct 33.9 L MCV 85.0 MCH 28.8 MCHC 33.9 RDW 13.6 RDW Differential 41.4 Plt Count 169 MPV 10.7 Immature Gran % (Auto) 0.500 Neut % (Auto) 93.3 H Lymph % (Auto) 5.2 L [place] % (Auto) 0.9 Eos % (Auto) 0.0 Baso % (Auto) 0.1 Absolute Neuts (auto) 14.1 H Absolute Lymphs (auto) 0.79 L Total Counted Not Reportable PT INR APTT Sodium 136 Potassium 4.0 Chloride 106 Carbon Dioxide 25.0 Anion Gap 5 BUN 12 Creatinine 0.43 L Estim Creat Clear Calc 43.74 Est GFR (MDRD) Af Amer 182 Est GFR (MDRD) Non-Af 151 BUN/Creatinine Ratio 27.6 H Glucose 158 H Calcium 7.5 L Blood Type Antibody Screen Crossmatch Medical Necessity - Tobacco Use Smoking Status: Former smoker Assessment/Plan All Active Problems (Last Reviewed 09/17/18 @ 04:38 by Rogelio Junior MD) Hemorrhoid prolapse (Acute) Rectal bleeding (Acute) I am following this patient in conjunction with Dr. Yoo S/p rectal exam with ligation of rectal bleeding Patient progressing well Hopeful transfer out of the unit today Will place on stool softener/laxative for bowel movements We will continue to monitor this patient Code Visit Inpatient E&M: 00273 Subs Hosp L1 - POST-OP
--- NOTE | 2018-09-17 08:29 | CON.PCM_ITS ---
Problem List (1) Acute blood loss anemia Status: Acute (2) Hemorrhoid prolapse Status: Acute (3) Rectal bleeding Status: Acute Reason for Consult Date of Consultation: 09/17/18 Reason for Consultation: Acute blood loss hypotension History of Present Illness: The patient is a 73 year old F, with no significant past medical history outside of back pain and hypertension, who presented to [facility] on 09/16/2018 secondary to bright red blood per rectum. Patient had reportedly undergone an hemorrhoidectomy by Dr. Leyva on 09/05/2018. Patient reported spotting of blood on the day previous to presentation, but about 5 PM had a large bright bowel movement with clots. Patient reports that she had a large bowel movement just prior to this event on my interview, but this was denied in the ER. Patient's initial hemoglobin at that time was 13.2. No previous hemoglobin was available for review. Patient was emergently taken to surgery for stabilization. During surgery, patient was noted to have some hypotension that was responsive to IV fluids. Patient was given some blood products and transferred to the intensive care unit for monitoring overnight. This morning, patient reports that she is doing well. Patient reports pain is well controlled. Little spotting has been noted, but otherwise no active bleeding. Patient denies any nausea or vomiting. Patient is denying any paresthesias or loss of bowel or bladder control. Patient has had 2 urinations overnight without issue. Blood pressures have remained stable while in the intensive care unit. Patient has not required any supplemental oxygen. Review of systems otherwise negative x10 systems. Past Medical History Medical History: Medical History (Last Reviewed 09/17/18 @ 04:38 by Rogelio Junior MD) Back pain M54.9 Hemorrhoid K64.9 HTN (hypertension) I10 Allergies hydrocodone [From Vicodin] Adverse Reaction (Verified 09/16/18 19:27) Nausea/Vom/Diarrhea lisinopril Adverse Reaction (Verified 09/16/18 19:27) cough oxycodone [From Percocet] Adverse Reaction (Verified 09/16/18 19:27) Nausea/Vom/Diarrhea Home Medications: Ambulatory Orders Medication Instructions Recorded multivitamin,sx-kzvg-ovxirfjo 1 tab PO DAILY 07/21/18 tablet paroxetine 20 mg tablet 20 mg PO QHS 07/21/18 Amlodipine Besylate 5 mg PO DAILY 09/16/18 Surgical History: Surgical History (Last Reviewed 09/16/18 @ 22:12 by Rogelio Junior MD) History of YAG laser capsulotomy of lens of left eye Z98.42 History of back surgery Z98.890 History of cataract extraction Z98.49 History of colonoscopy Z98.890 History of hysterectomy Z90.710 History of tubal ligation Z98.51 Psychiatric History: No pertinent psych hx 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 - *Family History Maternal Family History: Family History (Last Reviewed 09/16/18 @ 22:12 by Rogelio Junior MD) Brother Heart disease Hypertension Cancer Father Aneurysm History Items: No pertinent history Review of Systems Comment: See HPI Patient Problems: Active and Suspected Problems (Last Reviewed 09/17/18 @ 04:38 by Rogelio Junior MD) Acute blood loss anemia (Acute) Objective: No imaging was available for review. Patient has not had any echocardiograms or pulmonary function tests in the computer system. - Physical Exam General: Alert, Oriented x3, Cooperative, No apparent distress, Well developed, Well nourished, - - No conversational dyspnea. HEENT: Atraumatic, PERRLA, EOMI, Normocephalic, - - No scleral icterus or injection noted. Oral: Moist Mucosa, No Gingival or Mucosal Lesions/ Ulcerations Neck: Supple, No JVD, No Nodes, Trachea Midline Lungs: Clear to auscultation, Normal air movement, No rhonchi, No wheeze, No rales Cardiovascular: Regular rate, Regular Rhythm, Normal S1, Normal S2, No murmurs, No rub noted, No Gallop Abdomen: Bowel Sounds Present, Soft, Non Tender, Non-Distended Extremities: No clubbing, No cyanosis, No edema Skin: No rashes, No breakdown Musculoskeletal: No Tenderness to Palpation of Joints or Extremities Lymphatic: No Cervical, Supraclavicular, or Inguinal Adenopathy Neurological: Cranial nerves II-XII grossly intact, Motor Exam 5/5 strength throughout, Sensory exam intact to light touch and pain Psych/Mental Status: Alert and oriented to time, place, person, mood and affect Vital Signs Temp Pulse Resp BP Pulse Ox 36.3 C L 87 22 H 123/62 H 96 09/17/18 04:00 09/17/18 08:00 09/17/18 08:00 09/17/18 08:00 09/17/18 08:00 Oxygen Flow Rate (L/min) 2 Oxygen Delivery Method Room Air Weight: 77.6 kg Body Mass Index (BMI) 28.4 Intake and Output for Last 24 Hours 09/15/18 09/16/18 09/17/18 23:59 23:59 23:59 Intake Total 1969 2424 / 2424 Output Total 950 / 950 Balance 1969 1474 / 1474 Laboratory Tests Past 24 Hrs 09/16/18 09/16/18 09/16/18 18:20 18:20 18:20 WBC 11.4 H RBC 4.67 Hgb 13.2 Hct 39.1 MCV 83.7 MCH 28.3 MCHC 33.8 RDW 13.5 RDW Differential 41.1 Plt Count 230 MPV 10.5 Immature Gran % (Auto) 0.500 Neut % (Auto) 67.2 Lymph % (Auto) 23.0 [place] % (Auto) 6.5 Eos % (Auto) 2.5 Baso % (Auto) 0.3 Absolute Neuts (auto) 7.7 Absolute Lymphs (auto) 2.63 Total Counted Not Reportable PT 13.6 INR 1.1 APTT 33.2 Sodium 137 Potassium 3.4 L Chloride 104 Carbon Dioxide 25.0 Anion Gap 8 BUN 14 Creatinine 0.57 Estim Creat Clear Calc 43.74 Est GFR (MDRD) Af Amer 134 Est GFR (MDRD) Non-Af 110 BUN/Creatinine Ratio 24.6 H Glucose 134 H Calcium 8.7 Blood Type Antibody Screen Crossmatch 09/16/18 09/16/18 09/16/18 18:40 18:40 18:40 WBC RBC Hgb Hct MCV MCH MCHC RDW RDW Differential Plt Count MPV Immature Gran % (Auto) Neut % (Auto) Lymph % (Auto) [place] % (Auto) Eos % (Auto) Baso % (Auto) Absolute Neuts (auto) Absolute Lymphs (auto) Total Counted PT INR APTT Sodium Potassium Chloride Carbon Dioxide Anion Gap BUN Creatinine Estim Creat Clear Calc Est GFR (MDRD) Af Amer Est GFR (MDRD) Non-Af BUN/Creatinine Ratio Glucose Calcium Blood Type B POSITIVE Antibody Screen NEGATIVE Crossmatch See Detail See Detail 09/17/18 09/17/18 05:50 05:50 WBC 15.1 H RBC 3.99 L Hgb 11.5 L Hct 33.9 L MCV 85.0 MCH 28.8 MCHC 33.9 RDW 13.6 RDW Differential 41.4 Plt Count 169 MPV 10.7 Immature Gran % (Auto) 0.500 Neut % (Auto) 93.3 H Lymph % (Auto) 5.2 L [place] % (Auto) 0.9 Eos % (Auto) 0.0 Baso % (Auto) 0.1 Absolute Neuts (auto) 14.1 H Absolute Lymphs (auto) 0.79 L Total Counted Not Reportable PT INR APTT Sodium 136 Potassium 4.0 Chloride 106 Carbon Dioxide 25.0 Anion Gap 5 BUN 12 Creatinine 0.43 L Estim Creat Clear Calc 43.74 Est GFR (MDRD) Af Amer 182 Est GFR (MDRD) Non-Af 151 BUN/Creatinine Ratio 27.6 H Glucose 158 H Calcium 7.5 L Blood Type Antibody Screen Crossmatch Assessment/Plan Active and Suspected Problems (Last Reviewed 09/17/18 @ 04:38 by Rogelio Junior MD) Acute blood loss anemia (Acute) RECOMMENDATIONS: 1. Consider initiation of stool softener 2. No antibiotics at this time 3. Defer to surgery on initiation of p.o. diet 4. Okay to leave the intensive care unit from my perspective IMPRESSIONS: 1. Acute blood loss anemia secondary to lower GI bleed status post hemorrhoidectomy Different stories on the presentation in the medical record. Patient would benefit from loose bowel movements over the next 5-7 days to allow for healing. Patient does have an elevated white blood cell count, but this may be secondary to adrenal response given lower blood pressures during surgery. Patient is not requiring significant pain medications. Blood counts are acceptable at this time. Defer to surgery on initiation of p.o. diet. Patient currently hemodynamically stable on room air. Will sign off from a critical care perspective. Code Visit Inpatient E&M: 67689 Init Hosp L2
--- NOTE | 2018-09-17 08:52 | PCM.DC.GS ---
Discharge Diet: Light diet - advance as tolerated Discharge Activity: May not drive while taking narcotic pain medications. Call your doctor if your incision/area has: Continuous Slow Oozing, Sudden Increased Bleeding, Increased Pain/ Swelling, Increased Redness, Foul Smelling Discharge, Swelling at the incision site Call your doctor if you observe: Fever of 101 or Higher Change Dressing in (Days):: 1 - & PRN Cleanse incision/area with: - - sitz baths 2-3x daily Additional Instructions: Take colace daily, if diarrhea ok to hold off a day then continue. Allergies/Adverse Reactions: Allergies hydrocodone [From Vicodin] Adverse Reaction (Verified 09/16/18 19:27) Nausea/Vom/Diarrhea lisinopril Adverse Reaction (Verified 09/16/18 19:27) cough oxycodone [From Percocet] Adverse Reaction (Verified 09/16/18 19:27) Nausea/Vom/Diarrhea Medications to take at Discharge multivitamin,wc-ozqs-jwpgfrjz tablet 1 tab PO DAILY 07/21/18 paroxetine 20 mg tablet 20 mg PO QHS 07/21/18 Amlodipine Besylate 5 mg PO DAILY 09/16/18 Primary Care Physician: Brandon Garcia MD [Primary Care Provider] - Test Results: Test results from this visit will be discussed in further detail at your follow-up appointment, if applicable. When: Keep previous scheduled appt on 09/23 Proposed Discharge Date: 09/17/18
--- NOTE | 2018-09-17 08:55 | DCINST_ITS ---
Discharge Diet: Light diet - advance as tolerated Discharge Activity: May not drive while taking narcotic pain medications. Call your doctor if your incision/area has: Continuous Slow Oozing, Sudden Increased Bleeding, Increased Pain/ Swelling, Increased Redness, Foul Smelling Discharge, Swelling at the incision site Call your doctor if you observe: Fever of 101 or Higher Change Dressing in (Days):: 1 - & PRN Cleanse incision/area with: - - sitz baths 2-3x daily Additional Instructions: Take colace daily, if diarrhea ok to hold off a day then continue. Allergies/Adverse Reactions: Allergies hydrocodone [From Vicodin] Adverse Reaction (Verified 09/16/18 19:27) Nausea/Vom/Diarrhea lisinopril Adverse Reaction (Verified 09/16/18 19:27) cough oxycodone [From Percocet] Adverse Reaction (Verified 09/16/18 19:27) Nausea/Vom/Diarrhea Medications to take at Discharge multivitamin,qu-pyxd-gnxsokfe tablet 1 tab PO DAILY 07/21/18 paroxetine 20 mg tablet 20 mg PO QHS 07/21/18 Amlodipine Besylate 5 mg PO DAILY 09/16/18 Primary Care Physician: Brandon Garcia MD [Primary Care Provider] - Test Results: Test results from this visit will be discussed in further detail at your follow- up appointment, if applicable. When: Keep previous scheduled appt on 09/23 Proposed Discharge Date: 09/17/18
[2018-09-17] MEDS: Docusate Sodium 100 MG Capsule PO (10:04)
--- NOTE | 2018-09-17 10:49 | CASEMGMT ---
RN CM Assessment Presentation: Rectal Bleeding, Hemorrhoid prolapse. Surgery 09/16/18 for ligation of rectal bleeding. Intro role of CM and purpose of RN CM assessment. Demographics, PCP and Pharmacy verified. PCP: Dr. Brandon Garcia Specialists: Dr. Sweeney Preferred [facility]: [facility] Insurance:[facility] Prescription Benefit: yes LNOK: Living Arrangements: Lives independently with her . Denies needing assist for any ADL's. Transportation: Drives, but can drive if needed DME: none HHC: none Patient DC goals: Home DC PLAN: home Rell LEÓN RN ACM
--- NOTE | 2018-09-17 11:06 | PCM.PN.HOSP ---
Patient Problems: Active and Suspected Problems (Last Reviewed 09/17/18 @ 04:38 by Rogelio Junior MD) Acute blood loss anemia (Acute) Subjective: No lavonne bleeding. No abdominal pain. Wants to eat. Vitals/I&O's: Vital Signs Temp Pulse Resp BP Pulse Ox 36.3 C L 83 16 111/61 96 09/17/18 10:00 09/17/18 10:00 09/17/18 10:00 09/17/18 10:00 09/17/18 10:00 Oxygen Flow Rate (L/min) 2 Oxygen Delivery Method Room Air Weight: 77.6 kg Body Mass Index (BMI) 28.4 Intake and Output for Last 24 Hours 09/15/18 09/16/18 09/17/18 23:59 23:59 23:59 Intake Total 1969 2424 / 2424 Output Total 950 / 950 Balance 1969 1474 / 1474 General: Alert, Cooperative, No apparent distress HEENT: Atraumatic, Normocephalic Oral: Moist Mucosa, No Gingival or Mucosal Lesions/ Ulcerations Neck: No Nodes, Thyroid Normal Size and Texture Lungs: Clear to auscultation, Normal air movement, No rhonchi, No wheeze Cardiovascular: Regular rate, Regular Rhythm, Normal S1, Normal S2, No murmurs Abdomen: Bowel Sounds Present, Soft, Non Tender Extremities: No edema, No Calf Tenderness Laboratory Results 09/16/18 18:20: WBC 11.4 H, RBC 4.67, Hgb 13.2, Hct 39.1, MCV 83.7, MCH 28.3, MCHC 33.8, RDW 13.5, RDW Differential 41.1, Plt Count 230, MPV 10.5, Immature Gran % (Auto) 0.500, Neut % (Auto) 67.2, Lymph % (Auto) 23.0, [place] % (Auto) 6.5, Eos % (Auto) 2.5, Baso % (Auto) 0.3, Absolute Neuts (auto) 7.7, Absolute Lymphs (auto) 2.63, Total Counted Not Reportable 09/16/18 18:20: PT 13.6, INR 1.1, APTT 33.2 09/16/18 18:20: Sodium 137, Potassium 3.4 L, Chloride 104, Carbon Dioxide 25.0, Anion Gap 8, BUN 14, Creatinine 0.57, Estim Creat Clear Calc 43.74, Est GFR (MDRD) Af Amer 134, Est GFR (MDRD) Non-Af 110, BUN/Creatinine Ratio 24.6 H, Glucose 134 H, Calcium 8.7 09/16/18 18:40: Blood Type B POSITIVE, Antibody Screen NEGATIVE 09/16/18 18:40: Crossmatch See Detail 09/16/18 18:40: Crossmatch See Detail 09/17/18 05:50: WBC 15.1 H, RBC 3.99 L, Hgb 11.5 L, Hct 33.9 L, MCV 85.0, MCH 28.8, MCHC 33.9, RDW 13.6, RDW Differential 41.4, Plt Count 169, MPV 10.7, Immature Gran % (Auto) 0.500, Neut % (Auto) 93.3 H, Lymph % (Auto) 5.2 L, [place] % (Auto) 0.9, Eos % (Auto) 0.0, Baso % (Auto) 0.1, Absolute Neuts (auto) 14.1 H, Absolute Lymphs (auto) 0.79 L, Total Counted Not Reportable 09/17/18 05:50: Sodium 136, Potassium 4.0, Chloride 106, Carbon Dioxide 25.0, Anion Gap 5, BUN 12, Creatinine 0.43 L, Estim Creat Clear Calc 43.74, Est GFR (MDRD) Af Amer 182, Est GFR (MDRD) Non-Af 151, BUN/Creatinine Ratio 27.6 H, Glucose 158 H, Calcium 7.5 L Current Medications Acetaminophen/Codeine Phosphate (Tylenol#3) 1 - 2 tablet PO Q4H PRN PRN PRN Reason: MODERATE PAIN (4-5/10) Docusate Sodium (Colace) 100 mg PO BID [facility] Last Admin: 09/17/18 10:04 Dose: 100 mg Lactated Ringer's () 1,000 mls @ 130 mls/hr IV .[id number] [facility] Last Admin: 09/17/18 10:04 Dose: 130 mls/hr Sodium Chloride () 250 mls @ 15 mls/hr IV .[id number] PRN PRN Reason: SALINE FLUSH Morphine Sulfate () 2 - 4 mg IV Q2H PRN PRN PRN Reason: PAIN Ondansetron HCl (Zofran) 4 mg IV Q8H PRN PRN PRN Reason: NAUSEA Paroxetine HCl (Paxil) 20 mg PO QHS [facility] Last Admin: 09/16/18 22:52 Dose: 20 mg Sodium Chloride () 5 - 15 ml IV UD PRN PRN Reason: SALINE FLUSH Medical Necessity - Tobacco Use Smoking Status: Former smoker Assessment/Plan All Active Problems (Last Reviewed 09/17/18 @ 04:38 by Rogelio Junior MD) Hemorrhoid prolapse (Acute) Rectal bleeding (Acute) Acute blood loss anemia (Acute) 1. ABLA: Hg stable after 3units 2/2 hemorrhoidal bleeding s/p suture 2. Rectal bleeding 2/2 hemorrhoidal bleeding resolved 3. Hypotension transient, resolved ok to resume amlodipine 4. Disposition: ok to DC from medical standpoint. Code Visit Inpatient E&M: 79545 Subs Hosp L2
--- NOTE | 2018-09-17 11:09 | PN_ITS ---
Patient Problems: Active and Suspected Problems (Last Reviewed 09/17/18 @ 04:38 by Rogelio Junior MD) Acute blood loss anemia (Acute) Subjective: No lavonne bleeding. No abdominal pain. Wants to eat. Vitals/I&O's: Vital Signs Temp Pulse Resp BP Pulse Ox 36.3 C L 83 16 111/61 96 09/17/18 10:00 09/17/18 10:00 09/17/18 10:00 09/17/18 10:00 09/17/18 10:00 Oxygen Flow Rate (L/min) 2 Oxygen Delivery Method Room Air Weight: 77.6 kg Body Mass Index (BMI) 28.4 Intake and Output for Last 24 Hours 09/15/18 09/16/18 09/17/18 23:59 23:59 23:59 Intake Total 1969 2424 / 2424 Output Total 950 / 950 Balance 1969 1474 / 1474 General: Alert, Cooperative, No apparent distress HEENT: Atraumatic, Normocephalic Oral: Moist Mucosa, No Gingival or Mucosal Lesions/ Ulcerations Neck: No Nodes, Thyroid Normal Size and Texture Lungs: Clear to auscultation, Normal air movement, No rhonchi, No wheeze Cardiovascular: Regular rate, Regular Rhythm, Normal S1, Normal S2, No murmurs Abdomen: Bowel Sounds Present, Soft, Non Tender Extremities: No edema, No Calf Tenderness Laboratory Results 09/16/18 18:20: WBC 11.4 H, RBC 4.67, Hgb 13.2, Hct 39.1, MCV 83.7, MCH 28.3, MCHC 33.8, RDW 13.5, RDW Differential 41.1, Plt Count 230, MPV 10.5, Immature Gran % (Auto) 0.500, Neut % (Auto) 67.2, Lymph % (Auto) 23.0, [place] % (Auto) 6.5, Eos % (Auto) 2.5, Baso % (Auto) 0.3, Absolute Neuts (auto) 7.7, Absolute Lymphs (auto) 2.63, Total Counted Not Reportable 09/16/18 18:20: PT 13.6, INR 1.1, APTT 33.2 09/16/18 18:20: Sodium 137, Potassium 3.4 L, Chloride 104, Carbon Dioxide 25.0, Anion Gap 8, BUN 14, Creatinine 0.57, Estim Creat Clear Calc 43.74, Est GFR (MDRD) Af Amer 134, Est GFR (MDRD) Non-Af 110, BUN/Creatinine Ratio 24.6 H, Glucose 134 H, Calcium 8.7 09/16/18 18:40: Blood Type B POSITIVE, Antibody Screen NEGATIVE 09/16/18 18:40: Crossmatch See Detail 09/16/18 18:40: Crossmatch See Detail 09/17/18 05:50: WBC 15.1 H, RBC 3.99 L, Hgb 11.5 L, Hct 33.9 L, MCV 85.0, MCH 28.8, MCHC 33.9, RDW 13.6, RDW Differential 41.4, Plt Count 169, MPV 10.7, Immature Gran % (Auto) 0.500, Neut % (Auto) 93.3 H, Lymph % (Auto) 5.2 L, [place] % (Auto) 0.9, Eos % (Auto) 0.0, Baso % (Auto) 0.1, Absolute Neuts (auto) 14.1 H, Absolute Lymphs (auto) 0.79 L, Total Counted Not Reportable 09/17/18 05:50: Sodium 136, Potassium 4.0, Chloride 106, Carbon Dioxide 25.0, Anion Gap 5, BUN 12, Creatinine 0.43 L, Estim Creat Clear Calc 43.74, Est GFR (MDRD) Af Amer 182, Est GFR (MDRD) Non-Af 151, BUN/Creatinine Ratio 27.6 H, Glucose 158 H, Calcium 7.5 L Current Medications Acetaminophen/Codeine Phosphate (Tylenol#3) 1 - 2 tablet PO Q4H PRN PRN PRN Reason: MODERATE PAIN (4-5/10) Docusate Sodium (Colace) 100 mg PO BID [facility] Last Admin: 09/17/18 10:04 Dose: 100 mg Lactated Ringer's () 1,000 mls @ 130 mls/hr IV .Q7H42M [facility] Last Admin: 09/17/18 10:04 Dose: 130 mls/hr Sodium Chloride () 250 mls @ 15 mls/hr IV .[id number] PRN PRN Reason: SALINE FLUSH Morphine Sulfate () 2 - 4 mg IV Q2H PRN PRN PRN Reason: PAIN Ondansetron HCl (Zofran) 4 mg IV Q8H PRN PRN PRN Reason: NAUSEA Paroxetine HCl (Paxil) 20 mg PO QHS [facility] Last Admin: 09/16/18 22:52 Dose: 20 mg Sodium Chloride () 5 - 15 ml IV UD PRN PRN Reason: SALINE FLUSH Medical Necessity - Tobacco Use Smoking Status: Former smoker Assessment/Plan All Active Problems (Last Reviewed 09/17/18 @ 04:38 by Rogelio Junior MD) Hemorrhoid prolapse (Acute) Rectal bleeding (Acute) Acute blood loss anemia (Acute) 1. ABLA: * Hg stable after 3units * 2/2 hemorrhoidal bleeding s/p suture 2. Rectal bleeding * 2/2 hemorrhoidal bleeding * resolved 3. Hypotension * transient, resolved * ok to resume amlodipine 4. Disposition: ok to DC from medical standpoint. Code Visit Inpatient E&M: 64884 Subs Hosp L2
[2018-09-17 12:13] LABS: Hematocrit 33.6 % (37-47); Hemoglobin 11.3 g/dl (12.0-15.0)
--- NOTE | 2018-09-17 13:04 | PCM.PN.BLA ---
Progress Note Patient did have some clots per rectum. Digital rectal exam was done sutures appears to still be intact with no obvious active bleeding. Patient's hemoglobin is stable, vital signs been stable. This could just be residual from the large amounts of clot she had previous to surgery. Will allow patient to have a regular diet and she is able to tolerate may be DC'd home later today.
== END 2018-09-17 15:25 | disposition home or self-care (01) ==
LOC: ED 18:59 → SDC 19:18 → AC 19:20 → MS3 21:07 → SDC 21:07 → ICU 21:22
PROVIDERS: Admitting Provider Surgery; Emergency Provider Emergency Medicine; Family Provider Family Medicine; PCP Family Medicine; Visit Provider Surgery
PROC: (CPT 46999; principal; 2018-09-16 20:00)
DX: K62.5 Hemorrhage of anus and rectum (principal); K64.8 Other hemorrhoids; I10 Essential (primary) hypertension; D62 Acute posthemorrhagic anemia; Z79.899 Other long term (current) drug therapy; R01.1 Cardiac murmur, unspecified; F41.9 Anxiety disorder, unspecified; F32.9 Major depressive disorder, single episode, unspecified; Z87.891 Personal history of nicotine dependence
CPT/HCPCS: 46999; 36430; 80048; 85014; 85018; 85025; 85610; 85730; 86850; 86900; 86920; 96360; 96361; 99218; 99283; J7030; J7120; P9016; A4216; G0378

== ENCOUNTER 2018-09-22 09:19 | Day surgery (SDC) | payer MEDICARE, SELFPAY ==
[2018-09-16 21:28] VITALS: BMI 28.4
[2018-09-22] VITALS (14 sets, daily range): BP systolic 87–144; BP diastolic 44–88; PULSE 78–115; RESP 14–19; TEMP 36.1–37.1; O2SAT 91–100; BMI 26.6
[2018-09-22 09:43] LABS: Absolute Lymphocyte Count 1.46 X10^3/ul (0.83-4.51); Absolute Neutrophil Count 7.9 X10^3/uL (2.0-7.7); Basophil# 0.02 X10^3/uL; Basophil% 0.2 % (0-1); Eosinophil# 0.26 X10^3/uL; Eosinophils% 2.6 % (0-5); Hematocrit 31.6 % (37-47); Hemoglobin 10.6 g/dl (12.0-15.0); Lymphocyte # 1.46 X10^3/ul (4.0); Lymphocyte % 14.4 % (19-41); Mean Corp Hgb Conc 33.5 g/gl (32-36); Mean Corpuscular Hgb 29.1 pg (27.0-32.0); Mean Corpuscular Volume 86.8 fL (81-99); Mean Platelet Vol. 9.6 fl (6.2-12.0); Monocyte# 0.46 X10^3/uL; Monocyte% 4.5 % (0-10); Neutrophil # 7.85 X10^3/uL (2.7-7.7); Neutrophil % 77.6 % (47-70); POSITIVE COUNT NO; POSITIVE DIFFERENTIAL NO; POSITIVE MORPHOLOGY NO; Platelet Count 255 K/mm3 (150-450); RBC Distribution Width SD 44.1 fl (35.1-43.9); Red Blood Count 3.64 M/mm3 (4.2-5.4); White Blood Count 10.1 K/mm3 (4.4-11.0)
[2018-09-22 09:49] LABS: International Normalized Ratio 1.1; Prothrombin Time (Protime)PT. 13.5 SECONDS (11.7-14.9)
[2018-09-22 09:50] LABS: Partial Thromboplast Time 36.7 Seconds (24.1-36.2)
--- NOTE | 2018-09-22 09:52 | ED.VISSUMM ---
- ER Visit Summary Date of Service: 09/22/18 Chief Complaint: Hemorrhoid bleeding History of Present Illness: The patient is a 73 F who presents with bleeding from her hemorrhoids began again yesterday. Patient states she has had a recent hemorrhoidectomy. Patient states that after her hemorrhoidectomy 1 of the stitches came loose and she was having more bleeding. Patient states that they had to replace the sutures in the operating room at that time. Patient states that yesterday she noted some red rectal bleeding again. Patient denies any nausea or vomiting. Patient states she was prescribed MiraLAX which has caused some diarrhea. Patient denies any abdominal pain. Patient denies any urinary complaints. Physical Examination: Vital signs are stable except for mild tachycardia of 107. Patient is afebrile. Patient is in no acute distress. Oral mucosa is pink and moist. Neck is supple. Trachea is midline. There is no JVD. Heart was regular and slightly tachycardic. Lungs are clear and equal bilaterally. Abdomen is soft. Bowel sounds are normal. There is no tenderness. Cranial nerves II through XII are intact. There are no focal motor or sensory deficits noted. Rectal exam showed good sphincter tone. There is some blood noted in the rectal area and perirectal area. There is some clots noted externally. The remaining physical exam is within normal limits. Test Results: CBC showed a mild anemia with a hemoglobin of 10.6. Basic metabolic profile showed a mild hypokalemia of 3.4 but was otherwise within normal limits. PT with INR and PTT were obtained. PTT was slightly elevated at 36.7. INR was normal. Emergency Department Course and Treatment: Gelfoam was applied to the rectum. Dr. Leyva was in to evaluate the patient. He will take the patient to the operating room. Disposition: Admit to operating room Impression: Lower gastrointestinal bleeding This note was generated with [employer] dictation software. It may contain incorrect words, spelling, and punctuation that were not noted in review of the chart prior to signing ED Disposition - Plan for ED Patient: Disposition: Acute Care Hospital [facility] Diagnosis: Rectal bleeding
[2018-09-22 09:54] LABS: BUN 9 mg/dL (7-18); Creatinine, Serum 0.76 mg/dL (0.55-1.02); EST Glomerular Filtration Rate 78 mL/min (>60); Est Glom Filt Rate - Afr Amer 95 mL/min (>60); Estimated Creatinine Clearance 43.74 ml/min; Glucose 187 mg/dL (74-106)
[2018-09-22 09:55] LABS: Anion Gap 6 (5-15); BUN/Creat Ratio 11.8 RATIO (10-20); Calcium,Total 8.4 mg/dL (8.5-10.1); Chloride 105 mmol/L (98-107); Potassium 3.4 mmol/L (3.5-5.1); Sodium Level 137 mmol/L (136-145)
[2018-09-22] MEDS: 0.9% Normal Saline 1,000 ML 1000 ML IV (10:07)
--- NOTE | 2018-09-22 11:01 | HP.PCM_ITS ---
Problem List (1) Rectal bleeding Status: Acute History of Present Illness Date of Admission: 09/22/18 The patient is a 73 F who presents with bleeding from her hemorrhoids began again yesterday. Patient states she has had a recent hemorrhoidectomy by myself. Patient states that after her hemorrhoidectomy 1 of the stitches came loose and she was having more bleeding. This was 11 days postoperatively. Patient states that they had to replace the sutures in the operating room at that time. Patient states that yesterday she noted some red rectal bleeding again. Patient denies any nausea or vomiting. Patient states she was prescribed MiraLAX which has caused some diarrhea. Patient denies any abdominal pain. Patient denies any urinary complaints. Past Medical History Medical History: Medical History (Last Reviewed 09/22/18 @ 10:58 by Zackary Leyva MD) Back pain M54.9 Hemorrhoid K64.9 HTN (hypertension) I10 Allergies hydrocodone [From Vicodin] Adverse Reaction (Verified 09/22/18 09:23) Nausea/Vom/Diarrhea lisinopril Adverse Reaction (Verified 09/22/18 09:23) cough oxycodone [From Percocet] Adverse Reaction (Verified 09/22/18 09:23) Nausea/Vom/Diarrhea Home Medications: Ambulatory Orders Medication Instructions Recorded multivitamin,mo-dint-srxsizdo 1 tab PO DAILY 07/21/18 tablet paroxetine 20 mg tablet 20 mg PO QHS 07/21/18 Amlodipine Besylate 5 mg PO DAILY 09/16/18 Surgical History: Surgical History (Last Reviewed 09/22/18 @ 10:58 by Zackary Leyva MD) History of YAG laser capsulotomy of lens of left eye Z98.42 History of back surgery Z98.890 History of cataract extraction Z98.49 History of colonoscopy Z98.890 History of hysterectomy Z90.710 History of tubal ligation Z98.51 Psychiatric History: No pertinent psych hx [employer]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 Smoking Status: Former smoker - *Family History Maternal Family History: Family History (Last Reviewed 09/16/18 @ 22:12 by Rogelio Junior MD) Brother Heart disease Hypertension Cancer Father Aneurysm History Items: No pertinent history Review of Systems Constitutional: Denies: Chills, Fever, Weight Change Cardiovascular: Denies: Chest Pain, Chest Pressure, Chest Tightness, Palpitations Respiratory: Denies: Cough, Hemoptysis, Shortness of breath at rest, Shortness of breath upon exertion, Wheezing Gastrointestinal: Denies: Abdominal Pain, Constipation, Diarrhea, Hematemesis, Nausea, Melena, Vomiting Genitourinary: Denies: Dysuria, Frequency, Hematuria, Urgency VTE Information - Inpt Only VTE Present on Admission: No VTE Mechan Device Prophylaxis: SCD's VTE Pharm Prophylaxis ordered?: No Reason prophylaxis not ordered:: Treatment Not Indicated - Physical Exam General: Alert, Oriented x3 Lungs: Clear to auscultation Cardiovascular: Regular rate, Regular Rhythm, No murmurs Abdomen: Bowel Sounds Present, Soft, Non Tender, Non-Distended, - - Right red rectal bleeding with clots is noted in the anus. Unable to visualize anything down in the ER Vital Signs Temp Pulse Resp BP Pulse Ox 98.1 F 97 14 143/84 H 97 09/22/18 10:52 09/22/18 10:52 09/22/18 10:52 09/22/18 10:52 09/22/18 10:52 Oxygen Delivery Method Room Air Weight: 160 lb Body Mass Index (BMI) 26.6 Laboratory Tests Past 24 Hrs 09/22/18 09/22/18 09/22/18 09:35 09:35 09:35 WBC 10.1 RBC 3.64 L Hgb 10.6 L Hct 31.6 L MCV 86.8 MCH 29.1 MCHC 33.5 RDW 14.0 RDW Differential 44.1 H Plt Count 255 MPV 9.6 Immature Gran % (Auto) 0.700 Neut % (Auto) 77.6 H Lymph % (Auto) 14.4 L [place] % (Auto) 4.5 Eos % (Auto) 2.6 Baso % (Auto) 0.2 Absolute Neuts (auto) 7.9 H Absolute Lymphs (auto) 1.46 Total Counted Not Reportable PT 13.5 INR 1.1 APTT 36.7 H Sodium 137 Potassium 3.4 L Chloride 105 Carbon Dioxide 26.0 Anion Gap 6 BUN 9 Creatinine 0.76 Estim Creat Clear Calc 43.74 Est GFR (MDRD) Af Amer 95 Est GFR (MDRD) Non-Af 78 BUN/Creatinine Ratio 11.8 Glucose 187 H Calcium 8.4 L Assessment/Plan All Active Problems (Last Reviewed 09/17/18 @ 04:38 by Rogelio Junior MD) Hemorrhoid prolapse (Acute) Rectal bleeding (Acute) Acute blood loss anemia (Acute) Unfortunately I have to take this patient back to surgery and do an exam under anesthesia to identify exactly where she is bleeding from. More likely will need to oversew the bleeding vessels this time with a longer acting suture like a Vicryl as opposed to using chromic which she somehow the first time. Risks to include bleeding possible infection she will get antibiotics at the time of procedure. She has an obvious rebleeding chance as well. In addition there is also a chance of injury or fistula development secondary to this surgery. Patient understands these risk and is willing to proceed.
[2018-09-22] MEDS: Lubricating Jelly 60 GM Tube 30 GM TOPICAL (11:48)
--- NOTE | 2018-09-22 12:08 | OP.PCM_ITS ---
Problem List (1) Rectal bleeding Status: Acute Report of Operation Date of Procedure: 09/22/18 Pre-Operative Diagnosis: Postop rectal bleeding status post hemorrhoidectomy Post-Operative Diagnosis: Same Surgery/Procedure Performed:: exam under anesthesia and control of rectal bleeding Type of Anesthesia:: General Anesthesiologist: Kendall Castillo Fluids Replaced: 1400 cc Description of Procedure: Patient was brought into the operating room placed in the supine position under excellent general trach intubation she was then placed in the prone jackknife position making sure her chest head neck and arms were properly padded. I taped her buttocks apart was prepped with Betadine digital rectal exam revealed a fair ly large amount of clot came back is approximately 30 cc in the suction apparatus but I have a feeling it was more than that. The chromic suture that my partner had placed it was gone and so I was looking at the bed of the rectum coming down towards the anus and she had some bleeding on the left lateral side. I put a an interrupted suture of 2-0 Vicryl and I quickly realized I did not think that that suture was strong enough I then put in 3 more 0 Vicryl sutures coming up towards the anal verge. I placed Gelfoam on held pressure for 5 minutes release pressure for 5 minutes and then when I inspected it again towards the anal verge there was yet another area that was still oozing I put 1 more suture [id number] 0 Vicryl using a UR needle applied pressure and finally I had good hemostasis. I waited for another 5 minutes and again still had good hemostasis. I placed Kera on this wound and a Gelfoam in the area. The patient tolerated the procedure well. - Admit VTE Documentation VTE Present on Admission: No VTE Mechan Device Prophylaxis: SCD's VTE Pharm Prophylaxis ordered?: No Reason prophylaxis not ordered:: Treatment Not Indicated
[2018-09-22] MEDS: Lactated Ringers 1,000 ML 60 ML IV (18:40)
[2018-09-22] MEDS: Acetaminophen 500 MG Tablet PO (22:38)
[2018-09-22] MEDS: DiphenhydrAMINE 25 MG Capsule PO (22:38)
[2018-09-23] VITALS (9 sets, daily range): BP systolic 118–145; BP diastolic 60–95; PULSE 83–99; RESP 18; TEMP 36.6–37.5; O2SAT 91–94
--- NOTE | 2018-09-23 07:09 | PCM.PN.SRG ---
Patient Problems: Active and Suspected Problems (Last Reviewed 09/22/18 @ 10:58 by Zackary Leyva MD) Rectal bleeding (Acute) Subjective: Patient evaluated resting comfortably in bed. She notes minimal amount of discomfort. She denies bright red blood per rectum since yesterday. She notes some anal discomfort. She denies taking pain medication. She notes being straight cathed twice and is now urinating well. - Physical Exam General: Alert, Oriented x3, Cooperative Skin: - - Anus- very minimal amount of dried blood. No active bleeding. Vital Signs Temp Pulse Resp BP Pulse Ox 98.6 F 88 18 126/70 H 91 09/23/18 05:23 09/23/18 05:23 09/23/18 05:23 09/23/18 05:23 09/23/18 05:23 Oxygen Flow Rate (L/min) 2 Oxygen Delivery Method Room Air Weight: 160 lb Body Mass Index (BMI) 26.6 Intake and Output for Last 24 Hours 09/21/18 09/22/18 09/23/18 23:59 23:59 23:59 Intake Total 2721 / 2721 1058 / 1058 Output Total 750 / 750 1600 / 1600 Balance 1970 / 1970 -542 / -542 Laboratory Tests Past 24 Hrs 09/22/18 09/22/18 09/22/18 09:35 09:35 09:35 WBC 10.1 RBC 3.64 L Hgb 10.6 L Hct 31.6 L MCV 86.8 MCH 29.1 MCHC 33.5 RDW 14.0 RDW Differential 44.1 H Plt Count 255 MPV 9.6 Immature Gran % (Auto) 0.700 Neut % (Auto) 77.6 H Lymph % (Auto) 14.4 L [place] % (Auto) 4.5 Eos % (Auto) 2.6 Baso % (Auto) 0.2 Absolute Neuts (auto) 7.9 H Absolute Lymphs (auto) 1.46 Total Counted Not Reportable PT 13.5 INR 1.1 APTT 36.7 H Sodium 137 Potassium 3.4 L Chloride 105 Carbon Dioxide 26.0 Anion Gap 6 BUN 9 Creatinine 0.76 Estim Creat Clear Calc 43.74 Est GFR (MDRD) Af Amer 95 Est GFR (MDRD) Non-Af 78 BUN/Creatinine Ratio 11.8 Glucose 187 H Calcium 8.4 L Medical Necessity - Tobacco Use Smoking Status: Former smoker Assessment/Plan All Active Problems (Last Reviewed 09/22/18 @ 10:58 by Zackary Leyva MD) Hemorrhoid prolapse (Acute) Rectal bleeding (Acute) Acute blood loss anemia (Acute) I am following this patient in conjunction with Dr. Leyva S/p exam under anesthesia with control of rectal bleeding Start stool softener Hopeful discharge today Code Visit Inpatient E&M: 45770 Subs Hosp L1 - No charge/Post-op
[2018-09-23 08:26] LABS: Absolute Lymphocyte Count 2.07 X10^3/ul (0.83-4.51); Absolute Neutrophil Count 8.5 X10^3/uL (2.0-7.7); Basophil# 0.02 X10^3/uL; Basophil% 0.2 % (0-1); Eosinophils% 2.6 % (0-5); Hematocrit 20.7 % (37-47); Hemoglobin 6.9 g/dl (12.0-15.0); Lymphocyte # 2.07 X10^3/ul (4.0); Lymphocyte % 17.8 % (19-41); Mean Corp Hgb Conc 33.3 g/gl (32-36); Mean Corpuscular Hgb 29.6 pg (27.0-32.0); Mean Corpuscular Volume 88.8 fL (81-99); Mean Platelet Vol. 9.1 fl (6.2-12.0); Monocyte# 0.75 X10^3/uL; Monocyte% 6.4 % (0-10); Neutrophil # 8.45 X10^3/uL (2.7-7.7); Neutrophil % 72.6 % (47-70); Platelet Count 193 K/mm3 (150-450); RBC Distribution Width CV 14.7 % (11.6-14.6); RBC Distribution Width SD 47.2 fl (35.1-43.9); Red Blood Count 2.33 M/mm3 (4.2-5.4); White Blood Count 11.6 K/mm3 (4.4-11.0)
[2018-09-23 08:41] LABS: POSITIVE COUNT NO; POSITIVE DIFFERENTIAL NO; POSITIVE MORPHOLOGY NO
[2018-09-23] MEDS: Acetaminophen 500 MG Tablet PO (08:43)
[2018-09-23] MEDS: Polyethylene Glycol 3350 17 GM PACKET PO (08:43)
[2018-09-23] MEDS: Lactated Ringers 1,000 ML 60 ML IV (08:46)
--- NOTE | 2018-09-23 17:21 | NURSING ---
Spoke with Dr. Leyva about pt discharge. Pt to go home and follow same discharge instructions from a week ago. Miralax for stool softener and follow up in 1 week. prior discharge instructions printed.
--- NOTE | 2018-10-02 11:24 | PCM.DC.SUM ---
Discharge Date and Diagnosis Date of Admission: 09/22/18 Date of Discharge: 09/23/18 - Primary Discharge Diagnosis Post-operative rectal bleeding s/p hemorrhoidectomy - Secondary Discharge Diagnosis Chronic Problems (Last Reviewed 10/01/18 @ 13:30 by Sara Fletcher) HTN (hypertension) (Chronic) Hospital Course and Treatment Operations: - - exam under anesthesia and ligation of rectal bleeding Summary of Care Provided: The patient is a 73 year old F who presented with rectal bleeding and decreased hemoglobin. Patient was transfused [address] Leyva performed an exam under anesthesia with ligation of left lateral bleeding on 09/22/18. Patient tolerated the procedure well. She had difficulty with urination and had to be straight cathed twice with relief. Upon discharge, patient denies rectal bleeding. She had a bowel movement without pain or rectal bleeding. She was discharged to home on Miralax and instructed to follow-up in 1 week. - Physical Exam General: Alert, Oriented x3, Cooperative Skin: - - Rectum- No active bleeding noted. Vital Signs Temp Pulse Resp BP Pulse Ox 98.1 F 86 18 131/71 H 93 09/23/18 15:22 09/23/18 15:22 09/23/18 15:22 09/23/18 15:22 09/23/18 15:22 Oxygen Flow Rate (L/min) 2 Oxygen Delivery Method Room Air Weight: 160 lb Body Mass Index (BMI) 26.6 Home Medications: Medications to take at Discharge multivitamin,ov-gcmv-xgvxrwok tablet 1 tab PO DAILY 07/21/18 paroxetine 20 mg tablet 20 mg PO QHS 07/21/18 Amlodipine Besylate 5 mg PO DAILY 09/16/18 Primary Care Physician: Brandon Garcia MD [Primary Care Provider] - Disposition: Home Minutes spent on discharge:: 15 Patient Condition:: Stable Medical Necessity - Tobacco Use Smoking Status: Former smoker Meaningful Use Info Meaningful Use Diagnoses (Choose all that apply): None applicable Code Visit Inpatient E&M: 91510 Disch Hosp - No charge
--- NOTE | 2018-10-02 11:28 | DS.PCM_ITS ---
Discharge Date and Diagnosis Date of Admission: 09/22/18 Date of Discharge: 09/23/18 - Primary Discharge Diagnosis Post-operative rectal bleeding s/p hemorrhoidectomy - Secondary Discharge Diagnosis Chronic Problems (Last Reviewed 10/01/18 @ 13:30 by Sara Fletcher) HTN (hypertension) (Chronic) Hospital Course and Treatment Operations: - - exam under anesthesia and ligation of rectal bleeding Summary of Care Provided: The patient is a 73 year old F who presented with rectal bleeding and decreased hemoglobin. Patient was transfused [address] Leyva performed an exam under anesthesia with ligation of left lateral bleeding on 09/22/18. Patient tolerated the procedure well. She had difficulty with urination and had to be straight cathed twice with relief. Upon discharge, patient denies rectal bleeding. She had a bowel movement without pain or rectal bleeding. She was discharged to home on Miralax and instructed to follow-up in 1 week. - Physical Exam General: Alert, Oriented x3, Cooperative Skin: - - Rectum- No active bleeding noted. Vital Signs Temp Pulse Resp BP Pulse Ox 98.1 F 86 18 131/71 H 93 09/23/18 15:22 09/23/18 15:22 09/23/18 15:22 09/23/18 15:22 09/23/18 15:22 Oxygen Flow Rate (L/min) 2 Oxygen Delivery Method Room Air Weight: 160 lb Body Mass Index (BMI) 26.6 Home Medications: Medications to take at Discharge multivitamin,yo-mamv-pdxivptg tablet 1 tab PO DAILY 07/21/18 paroxetine 20 mg tablet 20 mg PO QHS 07/21/18 Amlodipine Besylate 5 mg PO DAILY 09/16/18 Primary Care Physician: Brandon Garcia MD [Primary Care Provider] - Disposition: Home Minutes spent on discharge:: 15 Patient Condition:: Stable Medical Necessity - Tobacco Use Smoking Status: Former smoker Meaningful Use Info Meaningful Use Diagnoses (Choose all that apply): None applicable Code Visit Inpatient E&M: 62888 Disch Hosp - No charge
== END 2018-09-23 17:18 | disposition home or self-care (01) ==
LOC: ED 10:56 → SDC 10:57 → AC 10:59 → ACINP 11:17 → AC 11:32 → ACINP 13:11 → MS3 14:01
PROVIDERS: Emergency Provider Emergency Medicine; Family Provider Family Medicine; PCP Family Medicine; Visit Provider Surgery
PROC: (CPT 46999; principal; 2018-09-22 11:45)
DX: K91.840 Postprocedural hemorrhage of a digestive system organ or structure following a digestive system procedure (principal); Y83.8 Other surgical procedures as the cause of abnormal reaction of the patient, or of later complication, without mention of misadventure at the time of the procedure
CPT/HCPCS: 46999; 36415; 80048; 85025; 85610; 85730; 86850; 86900; 86920; 86922; 99282; J7030; J7040; J7120; P9016; A4216; J2405

== ENCOUNTER → 2018-09-26 | Outpatient (CLI) | payer MEDICARE, SELFPAY ==
[2018-08-28 13:36] VITALS: BMI 27.5
[2018-09-22 11:36] VITALS: BMI 26.6
--- NOTE | 2018-09-26 12:56 | BI_ITS ---
MAMMOGRAPHY - BILATERAL SCREENING 3-D TOMOSYNTHESIS REASON FOR EXAM: Female, 73 years old. Bilateral Screening 3-D tomosynthesis PERTINENT HISTORY: No significant family history. TECHNIQUE: 2-D mammograms and 3-D Tomosynthesis of the breast (s) were performed. CAD was performed. COMPARISON: 09/17/2017 FINDINGS: The breast composition is composed of scattered fibroglandular density. Scattered benign calcifications are seen. No dense spiculated masses or suspicious microcalcifications are identified. No architectural distortion is identified. There is no skin thickening or retraction. There has been no significant change since the prior study. BI/SCREENING MAMM (CAD), BILAT IMPRESSION: No mammographic signs of malignancy. Routine yearly mammograms recommended. ASSESSMENT CATEGORY: BIRADS Category 2: Benign. A letter regarding these results will be sent to the patient by the facility within 30 days. FOLLOW UP RECOMMENDATION: Yearly follow up mammogram recommended. (A) Approximately 10% of breast cancers are not detected by mammography. A normal mammogram should not delay biopsy of a clinically suspicious abnormality. Electronically Signed: Richi Morillo MD at 14:43 EDT , Service support ,
== END | disposition home or self-care (01) ==
LOC: OPBI 12:54
PROVIDERS: Family Provider Family Medicine; PCP Family Medicine; Referring Provider Family Medicine; Visit Provider Family Medicine
DX: Z12.31 Encounter for screening mammogram for malignant neoplasm of breast (principal)
CPT/HCPCS: 77063; 77067

== ENCOUNTER → 2019-01-08 | Outpatient (CLI) | payer MEDICARE, SELFPAY ==
[2018-09-22 11:36] VITALS: BMI 26.6
[2019-01-08 12:22] LABS: Absolute Lymphocyte Count 1.72 X10^3/uL (0.83-4.51); Absolute Neutrophil Count 4.5 X10^3/uL (2.0-7.7); Basophil# 0.04 X10^3/uL; Basophil% 0.6 % (0-1); Eosinophil# 0.18 X10^3/uL; Eosinophils% 2.5 % (0-5); Hematocrit 45.7 % (37-47); Hemoglobin 14.6 g/dL (12.0-15.0); Lymphocyte # 1.72 X10^3/ul (4.0); Lymphocyte % 24.4 % (19-41); Mean Corp Hgb Conc 31.9 g/dL (32-36); Mean Corpuscular Hgb 26.7 pg (27.0-32.0); Mean Corpuscular Volume 83.7 fL (81-99); Mean Platelet Vol. 10.4 fl (6.2-12.0); Monocyte# 0.63 X10^3/uL; Monocyte% 8.9 % (0-10); NRBC Flagged by Analyzer 0 % (0-5); Neutrophil # 4.45 X10^3/uL (2.7-7.7); Platelet Count 230 K/mm3 (150-450); RBC Distribution Width CV 15.2 % (11.6-14.6); RBC Distribution Width SD 45.1 fl (35.1-43.9); Red Blood Count 5.46 M/mm3 (4.2-5.4); White Blood Count 7.1 K/mm3 (4.4-11.0)
[2019-01-08 12:57] LABS: Anion Gap 8 (5-15); BUN 13 mg/dL (7-18); Calcium,Total 9.1 mg/dL (8.5-10.1); Chloride 104 mmol/L (98-107); Creatinine, Serum 0.59 mg/dL (0.55-1.02); EST Glomerular Filtration Rate 105 mL/min (>60); Est Glom Filt Rate - Afr Amer 127 mL/min (>60); Glucose 100 mg/dL (74-106); Potassium 4.1 mmol/L (3.5-5.1); Sodium Level 142 mmol/L (136-145)
== END | disposition home or self-care (01) ==
LOC: MTLAB 10:22
PROVIDERS: Family Provider Family Medicine; PCP Family Medicine; Referring Provider Family Medicine; Visit Provider Family Medicine
DX: I10 Essential (primary) hypertension (principal); D50.0 Iron deficiency anemia secondary to blood loss (chronic)
CPT/HCPCS: 36415; 80048; 85025

== ENCOUNTER → 2019-01-15 | Outpatient (CLI) | payer MEDICARE, SELFPAY ==
[2018-09-22 11:36] VITALS: BMI 26.6
--- NOTE | 2019-01-15 13:01 | ECHOD_ITS ---
Reason For Study: aortic stenosis Procedure This was a 2D Doppler, Color Flow transthoracic echocardiogram. The study was technically difficult. Exam performed in department. Left Ventricle Normal left ventricle. Concentric left ventricular hypertrophy. The estimated ejection fraction is 55 %. There is evidence of diastolic dysfunction. No regional wall motion abnormalities noted. Right Ventricle Normal RV size. Normal systolic function. Atria Normal left atrium. Normal right atrium. No doppler evidence for ASD. Mitral Valve There is no stenosis. Trivial mitral valve insufficiency. Tricuspid Valve There is no tricuspid stenosis. Unable to estimate RV systolic pressure due to insufficient tricuspid regurgitant envelope. Trivial tricuspid valve insufficiency. Aortic Valve Trisinus/trileaflet aortic valve. Mild diffuse aortic valve thickening. Moderate aortic stenosis. Mild (1+) aortic valve insufficiency. Pulmonic Valve There is no pulmonic valvular stenosis. No pulmonic valve insufficiency. Great Vessels Normal aortic root. Pericardium/Pleural No pericardial effusion. MMode/2D Measurements & Calculations LVIDd: 4.5 cm IVSd: 1.2 cm LVOT diam: 2.0 cm LVIDs: 2.9 cm LVPWd: 1.2 cm LVOT area: 3.1 cm2 FS: 36.3 % Ao root diam: 3.5 cm LAV(MOD-bp): 65.5 ml Aortic Valve Planimetry: 2.1 cm2 LAV(MOD-bp) Indexed: 37.3 ml/m2 LAV(MOD-sp2): 60.5 ml LAV(MOD-sp4): 68.1 ml LA dimension(2D): 3.3 cm LA A4 area: 21.4 cm2 RA A4 area: 13.6 cm2 Time Measurements MV dec time: 0.24 sec Doppler Measurements & Calculations MV E max danish: 83.2 cm/sec Lat Peak E' Danish: 8.6 cm/sec Med Peak E' Danish: 3.5 cm/sec MV A max danish: 131.1 cm/sec E/E' lat: 9.7 E/E' med: 23.6 MV E/A: 0.63 Ao V2 max: 342.4 cm/sec AI max danish: 410.0 cm/sec PA V2 max: 93.0 cm/sec Ao max P.8 mmHg AI max P.4 mmHg Ao V2 mean: 243.8 cm/sec AI dec slope: 300.8 cm/sec2 Ao mean P.2 mmHg AI P1/2t: 399.2 msec Ao V2 VTI: 69.3 cm TR max danish: 273.9 cm/sec TR max P.0 mmHg Interpretation Summary The estimated ejection fraction is 55 %. There is evidence of diastolic dysfunction. Mild diffuse aortic valve thickening. Moderate aortic stenosis. Mild (1+) aortic valve insufficiency. Ordering Physician: Brandon Garcia Referring Physician: Brandon Garcia Performed By: Ashli Eduardo, CHRIS, RVT
== END | disposition home or self-care (01) ==
LOC: CVS 12:57
PROVIDERS: Family Provider Family Medicine; PCP Family Medicine; Referring Provider Family Medicine; Visit Provider Family Medicine
DX: I35.0 Nonrheumatic aortic (valve) stenosis (principal)
CPT/HCPCS: 93306

== ENCOUNTER → 2019-03-27 08:50 | Outpatient (CLI) | payer MEDICARE, SELFPAY ==
[2018-09-22 11:36] VITALS: BMI 26.6
[2019-03-27 10:15] LABS: Cholesterol 215 mg/dL (200); High Density Lipoprotein 76 mg/dL; Triglycerides 106 mg/dL; Very Low Density Lipoprotein 21 mg/dL (5-40)
== END ==
PROVIDERS: Family Provider Family Medicine; PCP Family Medicine; Referring Provider Family Medicine; Visit Provider Family Medicine
DX: I10 Essential (primary) hypertension (principal)
CPT/HCPCS: 36415; 80061

== ENCOUNTER → 2019-07-28 08:45 | Outpatient (CLI) | payer MEDICARE, SELFPAY ==
[2018-09-22 11:36] VITALS: BMI 26.6
[2019-07-28 11:12] LABS: ALB/GLOB Ratio 1.1 RATIO (0.9-2.4); AST(SGOT) 20 U/L (15-37); Alanine Aminotransfer ALT/SGPT 26 U/L (13-56); Albumin, Serum 3.7 g/dL (3.2-5.0); Alkaline Phosphatase 80 U/L (45-117); Anion Gap 5 (5-15); BUN 14 mg/dL (7-18); BUN/Creat Ratio 24.1 RATIO (10-20); Calcium,Total 9.4 mg/dL (8.5-10.1); Chloride 103 mmol/L (98-107); Cholesterol 218 mg/dL (200); Creatinine, Serum 0.58 mg/dL (0.55-1.02); EST Glomerular Filtration Rate 107 mL/min (>60); Est Glom Filt Rate - Afr Amer 130 mL/min (>60); Globulin 3.3 g/dL (2.2-4.2); Glucose 107 mg/dL (74-106); High Density Lipoprotein 76 mg/dL; Potassium 4.1 mmol/L (3.5-5.1); Sodium Level 138 mmol/L (136-145); Triglycerides 114 mg/dL; Very Low Density Lipoprotein 23 mg/dL (5-40)
== END ==
PROVIDERS: PCP Family Medicine; Referring Provider Family Medicine; Visit Provider Family Medicine
DX: E78.5 Hyperlipidemia, unspecified (principal)
CPT/HCPCS: 36415; 80053; 80061

== ENCOUNTER → 2019-09-02 06:10 | Outpatient (CLI) | payer MEDICARE, SELFPAY ==
[2019-08-13 14:05] VITALS: BMI 27.6
--- NOTE | 2019-09-02 15:02 | STRESSREP ---
Stress Test Report Exercise myocardial perfusion stress test. 74-year-old lady with a history of hypertension, aortic stenosis, chest pain. Stress protocol: Resting EKG demonstrates normal sinus rhythm with a rate of 69 bpm normal intervals are noted resting blood pressure is 122/80 mmHg. The patient exercised according to regular Landry protocol for a total duration of 6 minutes. The maximum heart rate attained was 123 bpm which was 85% of maximum predicted heart rate the maximum workload was 7 metabolic equivalents. At rest there were no ST or T wave changes noted to suggest ischemia peak exercise upsloping ST changes only were noted with no meet the criteria for ischemia. No clinical angina was noted. The resting blood pressure was 122/80 with a peak blood pressure 184/84 mmHg rate-pressure product was 22,600. The test was terminated due to target heart rate being achieved and dyspnea. Myocardial perfusion protocol. 11.8 mCi of technetium 99m sestamibi was injected at rest. Patient exercised according to regular Landry protocol for a total duration of 6 minutes. At peak exercise 33.3 mCi of technetium 99m sestamibi was injected stress images were obtained stress and rest images were reconstructed in comparing the short axis vertical long horizontal long axis. Gated images were also obtained Perfusion SPECT analysis: Review of the stress images demonstrate normal uptake of tracer noted in all areas of the myocardium the resting images similarly demonstrate normal uptake of tracer noted in all areas of the myocardium. No reversibility is noted suggest ischemia. Gated SPECT analysis: The gated ejection fraction is 67%. Conclusion: Normal exercise myocardial perfusion stress test at a moderate workload. Preserved ejection fraction.
== END ==
PROVIDERS: PCP Family Medicine; Referring Provider Internal Medicine Cardiovascular Disease; Visit Provider Internal Medicine Cardiovascular Disease
DX: R07.9 Chest pain, unspecified (principal)
CPT/HCPCS: 78452; 93017; A9500; A4216

== ENCOUNTER → 2020-04-21 08:15 | Outpatient (CLI) | payer MEDICARE, SELFPAY ==
[2020-04-19 10:12] VITALS: BMI 26.9
[2020-04-21 10:19] LABS: AST(SGOT) 20 U/L (15-37); Alanine Aminotransfer ALT/SGPT 30 U/L (13-56); Albumin, Serum 3.9 g/dL (3.2-5.0); Alkaline Phosphatase 81 U/L (45-117); Bilirubin, Direct 0.13 mg/dL (0.00-0.30); Cholesterol 162 mg/dL (200); Globulin 3.6 g/dL (2.2-4.2); High Density Lipoprotein 73 mg/dL; Protein, Total 7.5 g/dL (6.4-8.2); Triglycerides 90 mg/dL; Very Low Density Lipoprotein 18 mg/dL (5-40)
== END ==
PROVIDERS: PCP Family Medicine; Referring Provider Physician Assistant Medical; Visit Provider Physician Assistant Medical
DX: R07.9 Chest pain, unspecified (principal); E78.5 Hyperlipidemia, unspecified; I10 Essential (primary) hypertension; I35.0 Nonrheumatic aortic (valve) stenosis
CPT/HCPCS: 36415; 80061; 80076

== ENCOUNTER → 2020-04-26 13:48 | Outpatient (CLI) | payer MEDICARE, SELFPAY ==
[2020-04-19 10:12] VITALS: BMI 26.9
--- NOTE | 2020-04-26 13:50 | ECHOD_ITS ---
Reason For Study: Aortic Stenosis Procedure This was a 2D Doppler, Color Flow transthoracic echocardiogram. Exam performed in department. Left Ventricle Normal LV size. Moderate concentric left ventricular hypertrophy. Left ventricular systolic function is normal. The estimated ejection fraction is 65 %. No regional wall motion abnormalities noted. Right Ventricle Normal RV size. Normal systolic function. Atria The left atrium is mildly enlarged. Normal right atrium. Mitral Valve Bileaflet diffuse mitral valve thickening. Systolic anterior motion of the mitral valve. Mild- Moderate (1-2+) eccentric mitral valve insufficiency. Tricuspid Valve Normal tricuspid valve. Mild (1+) tricuspid valve insufficiency. Pulmonary artery systolic pressure is 35 mmHg. Aortic Valve Trisinus/trileaflet aortic valve. Mild focal aortic valve calcification. Peak aortic valve gradient 59 mmHg. Mean aortic valve gradient 32 mmHg. Moderate aortic stenosis. Mild (1+) aortic valve insufficiency. Pulmonic Valve Normal pulmonic valve. Great Vessels Normal aortic root. The pulmonary artery is normal size. Normal inferior vena cava. Pericardium/Pleural No pericardial effusion. MMode/2D Measurements & Calculations LVIDd: 3.1 cm IVSd: 1.9 cm LVOT diam: 2.0 cm LVIDs: 1.7 cm LVPWd: 1.3 cm LVOT area: 3.2 cm2 RVDd: 2.9 cm FS: 44.6 % Ao root diam: 3.9 cm LAV(MOD-bp): 50.8 ml Aortic Valve Planimetry: 2.2 cm2 LA dimension: 3.8 cm LAV(MOD-bp) Indexed: 28.2 ml/m2 LAV(MOD-sp2): 51.5 ml LAV(MOD-sp4): 45.4 ml LA A4 area: 17.3 cm2 RA A4 area: 14.4 cm2 Time Measurements MV dec time: 0.31 sec Doppler Measurements & Calculations MV E max danish: 85.7 cm/sec Lat Peak E' Danish: 8.4 cm/sec Med Peak E' Danish: 8.5 cm/sec MV A max danish: 120.8 cm/sec E/E' lat: 10.2 E/E' med: 10.1 MV E/A: 0.71 MV V2 max: 162.6 cm/sec MV P1/2t max danish: 111.3 cm/sec Ao V2 max: 385.2 cm/sec MV max P.6 mmHg MV P1/2t: 88.5 msec Ao max P.4 mmHg MV V2 mean: 82.6 cm/sec MV dec slope: 368.4 cm/sec2 Ao V2 mean: 264.9 cm/sec MV mean P.3 mmHg Ao mean P.1 mmHg MV V2 VTI: 36.4 cm MVA(P1/2t): 2.5 cm2 Ao V2 VTI: 87.4 cm AI max danish: 437.4 cm/sec MR max danish: 693.6 cm/sec PA V2 max: 94.2 cm/sec AI max P.6 mmHg MR max P.4 mmHg AI dec slope: 271.0 cm/sec2 MR mean danish: 545.9 cm/sec AI P1/2t: 472.8 msec MR mean P.7 mmHg MR VTI: 182.0 cm TR max danish: 278.7 cm/sec TR max P.1 mmHg Interpretation Summary Normal LV size. Moderate concentric left ventricular hypertrophy. Left ventricular systolic function is normal. The estimated ejection fraction is 65 %. Moderate aortic stenosis. Mean aortic valve gradient 32 mmHg. Mild (1+) aortic valve insufficiency. Mild (1+) tricuspid valve insufficiency. Compared to the previous the aortic valve area is mildly worse but still in the moderate range. Ordering Physician: Jana Bill Referring Physician: Brandon Thomas Performed By: Michael Fenton RCS
== END ==
PROVIDERS: PCP Family Medicine; Referring Provider Physician Assistant Medical; Visit Provider Physician Assistant Medical
DX: R07.9 Chest pain, unspecified (principal); I35.0 Nonrheumatic aortic (valve) stenosis; I10 Essential (primary) hypertension; E78.5 Hyperlipidemia, unspecified
CPT/HCPCS: 93306

== ENCOUNTER → 2021-01-04 07:50 | Outpatient (CLI) | payer MEDICARE, SELFPAY ==
[2020-04-19 10:12] VITALS: BMI 26.9
[2021-01-04 11:28] LABS: AST(SGOT) 27 U/L (15-37); Alanine Aminotransfer ALT/SGPT 33 U/L (13-56); Albumin, Serum 3.8 g/dL (3.2-5.0); Alkaline Phosphatase 75 U/L (45-117); Anion Gap 6 (5-15); BUN 13 mg/dL (7-18); BUN/Creat Ratio 29.1 RATIO (10-20); Bilirubin, Direct 0.14 mg/dL (0.00-0.30); Calcium,Total 8.8 mg/dL (8.5-10.1); Chloride 104 mmol/L (98-107); Cholesterol 173 mg/dL (200); Creatinine, Serum 0.45 mg/dL (0.55-1.02); EST Glomerular Filtration Rate 145 mL/min (>60); Est Glom Filt Rate - Afr Amer 175 mL/min (>60); Globulin 3.7 g/dL (2.2-4.2); Glucose 109 mg/dL (74-106); High Density Lipoprotein 84 mg/dL; Potassium 4.1 mmol/L (3.5-5.1); Protein, Total 7.5 g/dL (6.4-8.2); Sodium Level 138 mmol/L (136-145); Triglycerides 80 mg/dL; Very Low Density Lipoprotein 16 mg/dL (5-40)
== END ==
PROVIDERS: PCP Family Medicine; Referring Provider Family Medicine; Visit Provider Family Medicine
DX: E78.5 Hyperlipidemia, unspecified (principal); E78.00 Pure hypercholesterolemia, unspecified
CPT/HCPCS: 36415; 80053; 80061; 82248

== ENCOUNTER → 2021-01-04 08:11 | Outpatient (CLI) | payer MEDICARE, SELFPAY ==
[2020-04-19 10:12] VITALS: BMI 26.9
--- NOTE | 2021-01-04 08:12 | BI_ITS ---
MAMMOGRAPHY - BILATERAL SCREENING REASON FOR EXAM: Female, 75 years old. Routine annual screening examination. PERTINENT HISTORY: Screening TECHNIQUE: Digital bilateral breast valencia (3D mammographic acquisition) in the CC and MLO projections. 2-D mediolateral oblique (MLO) and craniocaudad (CC) views of both breasts were obtained. CAD: Full Field Digital Mammography with Computer Added Detection was performed. COMPARISON: Previous mammogram obtained on 09/26/2018 FINDINGS: Breast Composition: Heterogeneously dense There are no dominant masses or suspicious calcifications. No other significant abnormalities are identified. BI/SCRN MAMM (CAD)W/VALENCIA BILAT IMPRESSION: Stable bilateral screening mammogram. Yearly follow-up mammogram recommended. (A) ASSESSMENT CATEGORY: BIRADS Category 1: Negative. A letter regarding these results will be sent to the patient by the facility within 30 days. Approximately 10% of breast cancers are not detected by mammography. A normal mammogram should not delay biopsy of a clinically suspicious abnormality. [id number] Electronically Signed: Brandon Tam DO at 15:58 EDT Tel , Service support ,
== END ==
PROVIDERS: PCP Family Medicine; Referring Provider Family Medicine; Visit Provider Family Medicine
DX: Z12.31 Encounter for screening mammogram for malignant neoplasm of breast (principal); E78.5 Hyperlipidemia, unspecified; E78.00 Pure hypercholesterolemia, unspecified
CPT/HCPCS: 36415; 77063; 77067; 80053; 80061; 82248

== ENCOUNTER → 2021-03-10 07:51 | Outpatient (CLI) | payer MEDICARE, SELFPAY ==
--- NOTE | 2021-03-10 07:54 | ECHOD_ITS ---
Reason For Study: Murmur Procedure This was a 2D Doppler, Color Flow transthoracic echocardiogram. Exam performed in department. Left Ventricle Normal LV size. Moderate concentric left ventricular hypertrophy. Left ventricular systolic function is normal. The estimated ejection fraction is 65 %. Stage 1 diastolic dysfunction. Mid cavitary dynamic gradient 64 mm/Hg. No regional wall motion abnormalities noted. Right Ventricle Normal RV size. Normal systolic function. Atria Normal left atrium. Normal right atrium. Mitral Valve Normal mitral valve. Chordal systolic anterior motion of the mitral valve. Mild (1+) eccentric mitral valve insufficiency. Tricuspid Valve Normal tricuspid valve. Mild (1+) tricuspid valve insufficiency. Pulmonary artery systolic pressure is 24 mmHg. Aortic Valve Trisinus/trileaflet aortic valve. Mild focal aortic valve calcification. Mild (1+) aortic valve insufficiency. Pulmonic Valve Normal pulmonic valve. Great Vessels Mild to moderately dilated aortic root. The pulmonary artery is normal size. Normal inferior vena cava. Pericardium/Pleural No pericardial effusion. MMode/2D Measurements & Calculations LVIDd: 3.6 cm IVSd: 1.3 cm LVOT diam: 1.9 cm LVIDs: 1.9 cm LVPWd: 1.3 cm LVOT area: 2.8 cm2 RVDd: 2.9 cm FS: 47.9 % Ao root diam: 4.1 cm LAV(MOD-bp): 41.8 ml LVAd ap4: 21.9 cm2 ACS: 1.7 cm LAV(MOD-bp) Indexed: 23.5 ml/m2 LVLd ap4: 7.7 cm LAV(MOD-sp2): 55.3 ml EDV(MOD-sp4): 51.0 ml LAV(MOD-sp4): 28.7 ml EDV(sp4-el): 53.0 ml LVAs ap4: 10.4 cm2 LVLs ap4: 6.3 cm ESV(MOD-sp4): 15.0 ml ESV(sp4-el): 14.5 ml EF(MOD-sp4): 70.6 % EF(sp4-el): 72.7 % SV(MOD-sp4): 36.0 ml SV(sp4-el): 38.5 ml LA A4 area: 13.0 cm2 LA dimension(2D): 4.2 cm RA A4 area: 12.7 cm2 Doppler Measurements & Calculations MV E max danish: 55.5 cm/sec Lat Peak E' Danish: 5.1 cm/sec Med Peak E' Danish: 2.9 cm/sec MV A max danish: 116.5 cm/sec E/E' lat: 10.9 E/E' med: 19.1 MV E/A: 0.48 Ao V2 max: 212.3 cm/sec AI max danish: 486.1 cm/sec LV V1 max: 179.8 cm/sec Ao max P.0 mmHg AI max P.6 mmHg LV V1 max P.9 mmHg Ao V2 mean: 162.8 cm/sec LV V1 mean P.9 mmHg Ao mean P.5 mmHg AI dec slope: 252.3 cm/sec2 LV V1 mean: 134.7 cm/sec Ao V2 VTI: 50.9 cm AI P1/2t: 564.3 msec LV V1 VTI: 41.5 cm ANANDA(I,D): 2.2 cm2 ANANDA(V,D): 2.3 cm2 SV(LVOT): 114.4 ml PA V2 max: 84.7 cm/sec TR max danish: 227.7 cm/sec TR max P.7 mmHg ECHO/Echo Complete Interpretation Summary Normal LV size. Moderate concentric left ventricular hypertrophy. Left ventricular systolic function is normal. The estimated ejection fraction is 65 %. Stage 1 diastolic dysfunction. Mid cavitary dynamic gradient 64 mm/Hg. Chordal systolic anterior motion of the mitral valve. Mild (1+) aortic valve insufficiency. The gradient actually appears to be from the mid cavity rather than the aortic valve, the stenosis of which appears to be mild Ordering Physician: Lorenzo Gastelum Referring Physician: Brandon Thomas Performed By: Cherie Jennings, CONSTANZACS, RVT
== END ==
PROVIDERS: PCP Family Medicine; Referring Provider Internal Medicine Cardiovascular Disease; Visit Provider Internal Medicine Cardiovascular Disease
DX: I35.0 Nonrheumatic aortic (valve) stenosis (principal)
CPT/HCPCS: 93306

== ENCOUNTER 2021-09-08 15:50 | Outpatient (CLI) | payer MEDICARE, SELFPAY ==
--- NOTE | 2021-09-08 15:52 | RAD_ITS ---
HISTORY: COUGH. TECHNIQUE: XR Chest 2 Views. # of images incl. paperwork: 2. COMPARISON: 08/28/2016. FINDINGS: CARDIOMEDIASTINAL STRUCTURES: Cardiac silhouette not enlarged. Mediastinal contour unchanged with calcification of the aorta. LUNGS: Mild linear bibasilar opacities. PLEURA: No pleural effusion or pneumothorax. OSSEOUS STRUCTURES: Degenerative change. RAD/Chest PA and Lateral IMPRESSION: Mild bibasilar atelectasis and scarring. at 1146 Reported and signed by: Nicole Chamberlain MD Electronically Signed: Nicole Chamberlain MD at 11:45 EDT ,
== END 2021-09-08 23:59 | disposition home or self-care (01) ==
LOC: MTRAD 15:52
PROVIDERS: PCP Family Medicine; Referring Provider Family Medicine; Visit Provider Family Medicine
DX: R05.3 Chronic cough (principal)
CPT/HCPCS: 71046

== ENCOUNTER 2021-09-11 07:14 | Outpatient (CLI) | payer MEDICARE, SELFPAY ==
[2021-09-11 10:11] LABS: Absolute Lymphocyte Count 1.34 X10^3/uL (0.83-4.51); Absolute Neutrophil Count 4.3 X10^3/uL (2.0-7.7); Basophil# 0.04 X10^3/uL; Basophil% 0.6 % (0-1); Eosinophil# 0.27 X10^3/uL; Hematocrit 42.7 % (37-47); Hemoglobin 13.8 g/dL (12.0-15.0); Lymphocyte # 1.34 X10^3/ul (0.83-4.51); Lymphocyte % 20.1 % (19-41); Mean Corp Hgb Conc 32.3 g/dL (32-36); Mean Corpuscular Volume 86.8 fL (81-99); Mean Platelet Vol. 10.9 fl (6.2-12.0); Monocyte# 0.66 X10^3/uL; Monocyte% 9.9 % (0-10); NRBC Flagged by Analyzer 0 % (0-5); Neutrophil # 4.34 X10^3/uL (2.7-7.7); Neutrophil % 65.1 % (47-70); Platelet Count 230 K/mm3 (150-450); RBC Distribution Width CV 13.8 % (11.6-14.6); RBC Distribution Width SD 43.9 fl (35.1-43.9); Red Blood Count 4.92 M/mm3 (4.2-5.4); White Blood Count 6.7 K/mm3 (4.4-11.0)
[2021-09-11 11:15] LABS: Anion Gap 1 (5-15); BUN 13 mg/dL (7-18); BUN/Creat Ratio 22.7 RATIO (10-20); Calcium,Total 8.9 mg/dL (8.5-10.1); Chloride 105 mmol/L (98-107); Cholesterol 172 mg/dL (200); Creatinine, Serum 0.57 mg/dL (0.55-1.02); EST Glomerular Filtration Rate 108 mL/min (>60); Est Glom Filt Rate - Afr Amer 131 mL/min (>60); Glucose 90 mg/dL (74-106); High Density Lipoprotein 85 mg/dL; Potassium 4.1 mmol/L (3.5-5.1); Sodium Level 138 mmol/L (136-145); Thyroid Stim Hormone (TSH) 1.54 uIU/mL (0.358-3.74); Triglycerides 79 mg/dL; Very Low Density Lipoprotein 16 mg/dL (5-40)
== END 2021-09-11 23:59 | disposition home or self-care (01) ==
LOC: MTLAB 07:15
PROVIDERS: PCP Family Medicine; Referring Provider Family Medicine; Visit Provider Family Medicine
DX: I10 Essential (primary) hypertension (principal); R05.3 Chronic cough
CPT/HCPCS: 36415; 80048; 80061; 84443; 85025

== ENCOUNTER → 2022-01-05 | Outpatient (CLI) | payer MEDICARE, SELFPAY ==
--- NOTE | 2022-01-05 07:08 | BI_ITS ---
MAMMOGRAPHY - BILATERAL SCREENING 3-D TOMOSYNTHESIS REASON FOR EXAM: Female, 76 years old. Routine screening PERTINENT HISTORY: No significant family history. TECHNIQUE: 2-D mammograms and 3-D Tomosynthesis of the breast (s) were performed. CAD was performed. COMPARISON: 01/04/2021 FINDINGS: The breast composition is composed of scattered fibroglandular density. Scattered benign calcifications are seen. No dense spiculated masses or suspicious microcalcifications are identified. No architectural distortion is identified. There is no skin thickening or retraction. There has been no significant change since the prior study. BI/SCRN MAMM (CAD)W/VALENCIA BILAT IMPRESSION: No mammographic signs of malignancy. Routine yearly mammograms recommended. ASSESSMENT CATEGORY: BIRADS Category 1: Negative. A letter regarding these results will be sent to the patient by the facility within 30 days. FOLLOW UP RECOMMENDATION: Yearly follow up mammogram recommended. (A) Approximately 10% of breast cancers are not detected by mammography. A normal mammogram should not delay biopsy of a clinically suspicious abnormality. Electronically Signed: Richi Morillo MD at 15:59 EDT ,
== END | disposition home or self-care (01) ==
LOC: OPBI 07:06
PROVIDERS: PCP Family Medicine; Visit Provider Family Medicine
DX: Z12.31 Encounter for screening mammogram for malignant neoplasm of breast (principal)
CPT/HCPCS: 77063; 77067

== ENCOUNTER → 2022-03-27 | Outpatient (CLI) | payer MEDICARE, SELFPAY ==
--- NOTE | 2022-03-27 09:40 | RAD_ITS ---
STUDY: X-RAY - ESOPHAGUS (BARIUM SWALLOW) WITH FLUOROSCOPY REASON FOR EXAM: Female, 76 years old. Dysphagia TECHNIQUE: 23 view(s) of the esophagus were obtained following swallowing of barium. FLUOROSCOPY TIME (if supplied): (29) minutes/seconds COMPARISON: None. FINDINGS: There is no demonstrated esophageal foreign body. There is no demonstrated stricture or mucosal abnormality. Normal gastroesophageal junction, without a demonstrated hiatal hernia. The patient ingested a 12 mm tablet of barium without any difficulty. There is atherosclerotic calcification of the aortic arch with tortuosity of the descending aorta. Normal visualized pulmonary parenchyma. Normal visualized osseous structures of the thorax. RAD/Esophagus Dual Contrast IMPRESSION: Normal plain film x-ray examination (barium swallow) of the esophagus. Electronically Signed: Pablo Gonzales MD at 12:46 EDT ,
== END | disposition home or self-care (01) ==
LOC: RAD 09:29
PROVIDERS: PCP Family Medicine; Referring Provider Otolaryngology; Visit Provider Otolaryngology
DX: R13.10 Dysphagia, unspecified (principal)
CPT/HCPCS: 74221

== ENCOUNTER → 2022-05-09 | Outpatient (CLI) | payer MEDICARE, SELFPAY ==
--- NOTE | 2022-05-09 07:57 | ECHOD_ITS ---
Reason For Study: NONRHEUMATIC AORTIC STENOSIS Procedure This was a 2D Doppler, Color Flow transthoracic echocardiogram. Exam performed in department. Left Ventricle Normal LV size. Moderate eccentric left ventricular hypertrophy. Left ventricular systolic function is normal. The estimated ejection fraction is 65 %. Stage 1 diastolic dysfunction. Mid cavitary dynamic gradient 109 mm/Hg. No regional wall motion abnormalities noted. Right Ventricle Normal RV size. Normal systolic function. Mitral Valve There is mild to moderate mitral annular calcification. Systolic anterior motion of the mitral valve. Mild-Moderate (1-2+) eccentric mitral valve insufficiency. Tricuspid Valve Normal tricuspid valve. Mild (1+) tricuspid valve insufficiency. Pulmonary artery systolic pressure is 40 mmHg. Aortic Valve Trisinus/trileaflet aortic valve. Mild focal aortic valve calcification. Mild (1+) aortic valve insufficiency. Pulmonic Valve Normal pulmonic valve. Great Vessels Normal aortic root. The pulmonary artery is normal size. Normal inferior vena cava. Pericardium/Pleural No pericardial effusion. MMode/2D Measurements & Calculations LVIDd: 4.5 cm IVSd: 1.7 cm LVOT diam: 1.9 cm RVDd: 3.2 cm LVPWd: 1.2 cm LVOT area: 3.0 cm2 Ao root diam: 4.0 cm LAV(MOD-bp): 83.0 ml LA A4 area: 21.4 cm2 ACS: 1.5 cm LAV(MOD-bp) Indexed: 47.3 ml/m2 LAV(MOD-sp2): 78.0 ml LAV(MOD-sp4): 75.4 ml LA dimension(2D): 4.0 cm RA A4 area: 14.2 cm2 Doppler Measurements & Calculations MV E max danish: 73.4 cm/sec Lat Peak E' Danish: 6.2 cm/sec Med Peak E' Danish: 4.8 cm/sec MV A max danish: 107.5 cm/sec E/E' lat: 11.8 E/E' med: 15.3 MV E/A: 0.68 Ao V2 max: 522.5 cm/sec AI max danish: 372.3 cm/sec MR max danish: 774.4 cm/sec Ao max P.3 mmHg AI max P.6 mmHg MR max P.9 mmHg Ao V2 mean: 398.4 cm/sec AI dec slope: 241.1 cm/sec2 MR mean danish: 636.8 cm/sec Ao mean P.8 mmHg AI P1/2t: 452.3 msec MR mean P.4 mmHg Ao V2 VTI: 127.1 cm MR VTI: 166.9 cm PA V2 max: 93.4 cm/sec TR max danish: 306.8 cm/sec TR max P.6 mmHg ECHO/Echo Complete Interpretation Summary Normal LV size. Left ventricular systolic function is normal. The estimated ejection fraction is 65 %. Stage 1 diastolic dysfunction. Pulmonary artery systolic pressure is 40 mmHg. Moderate eccentric left ventricular hypertrophy. Mid cavitary dynamic gradient 109 mm/Hg. Prior to the previous echo the mid cavitary gradient appears to be worse. Ordering Physician: Taylor Rose Referring Physician: Debora Mccloud Performed By: Ashli Eduardo RDCS, RVT
== END | disposition home or self-care (01) ==
PROVIDERS: PCP Family Medicine; Referring Provider Nurse Practitioner Gerontology; Visit Provider Nurse Practitioner Gerontology
DX: I35.0 Nonrheumatic aortic (valve) stenosis (principal); R06.09 Other forms of dyspnea
CPT/HCPCS: 93306

== ENCOUNTER → 2022-05-14 | Outpatient (CLI) | payer MEDICARE, SELFPAY ==
--- NOTE | 2022-05-14 12:25 | ECHOL_ITS ---
Reason For Study: Re-evaluate HOCM Procedure This was a limited 2D transthoracic echocardiogram. Exam performed in department. Left Ventricle Normal LV size. Moderate concentric left ventricular hypertrophy. Left ventricular systolic function is hyperdynamic. The estimated ejection fraction is 70 %. Mid cavitary dynamic gradient 127 mm/Hg. No regional wall motion abnormalities noted. Right Ventricle Normal RV size. Normal systolic function. Atria Normal left atrium. Normal right atrium. Mitral Valve There is moderate mitral annular calcification. Systolic anterior motion of the mitral valve. Mild- Moderate (1-2+) eccentric mitral valve insufficiency. Tricuspid Valve Normal tricuspid valve. Aortic Valve Trisinus/trileaflet aortic valve. Mild (1+) aortic valve insufficiency. Pericardium/Pleural No pericardial effusion. MMode/2D Measurements & Calculations LVIDd: 3.1 cm IVSd: 2.0 cm LVOT diam: 1.9 cm LVIDs: 1.7 cm LVPWd: 1.3 cm LVOT area: 3.0 cm2 FS: 45.0 % Ao root diam: 3.2 cm LVAd ap4: 24.2 cm2 LVAd ap2: 22.9 cm2 LVLd ap4: 8.1 cm LVLd ap2: 7.8 cm EDV(MOD-sp4): 59.6 ml EDV(MOD-sp2): 57.0 ml EDV(sp4-el): 61.5 ml EDV(sp2-el): 57.4 ml LVAs ap4: 9.6 cm2 LVAs ap2: 7.4 cm2 LVLs ap4: 7.2 cm LVLs ap2: 6.2 cm ESV(MOD-sp4): 12.9 ml ESV(MOD-sp2): 8.4 ml ESV(sp4-el): 10.9 ml ESV(sp2-el): 7.5 ml EF(MOD-sp4): 78.3 % EF(MOD-sp2): 85.3 % EF(sp4-el): 82.2 % SV(MOD-sp4): 46.7 ml SV(MOD-sp2): 48.6 ml SV(sp4-el): 50.6 ml Aortic Valve Planimetry: 1.6 cm2 LA dimension(2D): 3.4 cm Doppler Measurements & Calculations Ao V2 max: 250.0 cm/sec AI max atilio: 393.8 cm/sec Ao max P.0 mmHg AI max P.0 mmHg Ao V2 mean: 156.9 cm/sec AI dec slope: 240.4 cm/sec2 Ao mean P.5 mmHg AI P1/2t: 479.8 msec Ao V2 VTI: 51.5 cm ECHO/Echo, Limited Study Interpretation Summary Normal LV size. Moderate concentric left ventricular hypertrophy. The estimated ejection fraction is 70 %. Mid cavitary dynamic gradient 127 mm/Hg. Systolic anterior motion of the mitral valve. Ordering Physician: Taylor Rose Referring Physician: Maryam Campbell Performed By: Alia Bridges RDCS
== END | disposition home or self-care (01) ==
LOC: CVS 12:25
PROVIDERS: PCP Family Medicine; Visit Provider Nurse Practitioner Gerontology
DX: I51.7 Cardiomegaly (principal); R06.09 Other forms of dyspnea
CPT/HCPCS: 93308

== ENCOUNTER → 2022-07-25 | Outpatient (CLI) | payer MEDICARE, SELFPAY ==
--- NOTE | 2022-07-25 08:07 | ECHOD_ITS ---
Reason For Study: HCOM Left Ventricle Normal LV size. Moderate eccentric left ventricular hypertrophy. Left ventricular systolic function is normal. The estimated ejection fraction is 60 %. Mid cavitary dynamic gradient 33 mm at rest and 55 mm with Valsalva. mm/Hg. Stage 1 diastolic dysfunction. No regional wall motion abnormalities noted. Right Ventricle Normal RV size. The right ventricle is normal in size, function, and thickness. Atria Normal left atrium. Normal right atrium. Mitral Valve Normal mitral valve. Mild (1+) mitral valve insufficiency. Tricuspid Valve Normal tricuspid valve. Mild tricuspid valve insufficiency. Pulmonary artery systolic pressure is 40 mmHg. Aortic Valve Trisinus/trileaflet aortic valve. Mild focal aortic valve calcification. Mild (1+) aortic valve insufficiency. Pulmonic Valve Normal pulmonic valve. Trivial pulmonic valve insufficiency. Great Vessels Mild to moderately dilated aortic root. The pulmonary artery is normal size. Normal inferior vena cava. Pericardium/Pleural No pericardial effusion. MMode/2D Measurements & Calculations LVIDd: 3.5 cm IVSd: 1.7 cm LVOT diam: 2.0 cm LVIDs: 1.8 cm LVPWd: 1.4 cm LVOT area: 3.1 cm2 RVDd: 3.1 cm FS: 47.8 % Ao root diam: 4.1 cm LAV(MOD-bp): 49.7 ml LVAd ap4: 21.5 cm2 LAV(MOD-bp) Indexed: 28.4 ml/m2 LVLd ap4: 7.6 cm LAV(MOD-sp2): 40.9 ml EDV(MOD-sp4): 50.2 ml LAV(MOD-sp4): 58.2 ml EDV(sp4-el): 51.2 ml LVAs ap4: 10.3 cm2 LVLs ap4: 6.4 cm ESV(MOD-sp4): 16.1 ml ESV(sp4-el): 13.9 ml EF(MOD-sp4): 67.9 % EF(sp4-el): 72.8 % SV(MOD-sp4): 34.1 ml SV(sp4-el): 37.3 ml LA A4 area: 19.7 cm2 LA dimension(2D): 4.2 cm RA A4 area: 15.1 cm2 Time Measurements MV dec time: 0.42 sec Doppler Measurements & Calculations MV E max danish: 83.6 cm/sec Lat Peak E' Danish: 7.8 cm/sec Med Peak E' Danish: 4.3 cm/sec MV A max danish: 121.7 cm/sec E/E' lat: 10.7 E/E' med: 19.4 MV E/A: 0.69 MV V2 max: 137.7 cm/sec Ao V2 max: 231.7 cm/sec MV max P.6 mmHg MV dec slope: 197.1 cm/sec2 Ao max P.5 mmHg MV V2 mean: 69.6 cm/sec Ao V2 mean: 182.1 cm/sec MV mean P.4 mmHg Ao mean P.1 mmHg MV V2 VTI: 44.0 cm Ao V2 VTI: 58.5 cm AV (velocity ratio): 0.71 MVA(VTI): 3.0 cm2 ANANDA(I,D): 2.2 cm2 ANANDA(V,D): 2.4 cm2 AI max danish: 402.8 cm/sec LV V1 max: 176.5 cm/sec SV(LVOT): 130.6 ml AI max P.9 mmHg LV V1 max P.5 mmHg AI dec slope: 211.6 cm/sec2 LV V1 mean P.8 mmHg AI P1/2t: 557.5 msec LV V1 mean: 132.8 cm/sec LV V1 VTI: 41.7 cm PA V2 max: 91.7 cm/sec PI end-d danish: 135.6 cm/sec TR max danish: 300.6 cm/sec TR max P.2 mmHg ECHO/Echo Complete Interpretation Summary Normal LV size. Moderate eccentric left ventricular hypertrophy. Mid cavitary dynamic gradient 33 mm at rest and 55 mm with Valsalva. mm/Hg. Left ventricular systolic function is normal. The estimated ejection fraction is 60 %. Compared to the previous the mid cavitary gradient is significantly improved. Stage 1 diastolic dysfunction. Mild (1+) aortic valve insufficiency. Ordering Physician: Jana Bill Referring Physician: Maryam Campbell Performed By: Cherie Jennings, CHRIS, RVT
== END | disposition home or self-care (01) ==
LOC: CVS 08:05
PROVIDERS: PCP Family Medicine; Referring Provider Physician Assistant Medical; Visit Provider Physician Assistant Medical
DX: I35.0 Nonrheumatic aortic (valve) stenosis (principal)
CPT/HCPCS: 93306

== ENCOUNTER → 2022-07-26 | Outpatient (CLI) | payer MEDICARE, SELFPAY ==
[2022-07-26 10:32] LABS: Absolute Lymphocyte Count 1.94 X10^3/uL (0.83-4.51); Basophil# 0.04 X10^3/uL; Basophil% 0.7 % (0-1); Eosinophils% 3.5 % (0-5); Hematocrit 45.8 % (37-47); Hemoglobin 14.4 g/dL (12.0-15.0); Lymphocyte # 1.94 X10^3/ul (0.83-4.51); Lymphocyte % 33.6 % (19-41); Mean Corp Hgb Conc 31.4 g/dL (32-36); Mean Corpuscular Hgb 26.7 pg (27.0-32.0); Mean Platelet Vol. 10.4 fl (6.2-12.0); Monocyte# 0.56 X10^3/uL; Monocyte% 9.7 % (0-10); NRBC Flagged by Analyzer 0 % (0-5); Neutrophil # 3.02 X10^3/uL (2.7-7.7); Neutrophil % 52.2 % (47-70); Platelet Count 228 K/mm3 (150-450); RBC Distribution Width CV 14.2 % (11.6-14.6); RBC Distribution Width SD 43.9 fl (35.1-43.9); Red Blood Count 5.39 M/mm3 (4.2-5.4); White Blood Count 5.8 K/mm3 (4.4-11.0)
[2022-07-26 10:56] LABS: AST(SGOT) 20 U/L (15-37); Alanine Aminotransfer ALT/SGPT 23 U/L (13-56); Albumin, Serum 3.7 g/dL (3.2-5.0); Alkaline Phosphatase 63 U/L (45-117); Anion Gap 8 (5-15); BUN 11 mg/dL (7-18); BUN/Creat Ratio 18.6 RATIO (10-20); Calcium,Total 9.2 mg/dL (8.5-10.1); Chloride 103 mmol/L (98-107); Cholesterol 150 mg/dL (200); Creatinine, Serum 0.59 mg/dL (0.55-1.02); EST Glomerular Filtration Rate 104 mL/min (>60); Est Glom Filt Rate - Afr Amer 126 mL/min (>60); Globulin 3.7 g/dL (2.2-4.2); Glucose 100 mg/dL (74-106); High Density Lipoprotein 75 mg/dL; Potassium 3.8 mmol/L (3.5-5.1); Protein, Total 7.4 g/dL (6.4-8.2); Sodium Level 141 mmol/L (136-145); Triglycerides 80 mg/dL; Very Low Density Lipoprotein 16 mg/dL (5-40)
[2022-07-26 11:05] LABS: Microalbumin,Random Urine 18.8 mg/L (NO RANGE EST.)
== END | disposition home or self-care (01) ==
LOC: MTLAB 09:09
PROVIDERS: PCP Family Medicine; Referring Provider Family Medicine; Visit Provider Family Medicine
DX: E78.5 Hyperlipidemia, unspecified (principal); I10 Essential (primary) hypertension
CPT/HCPCS: 36415; 80053; 80061; 82043; 85025

== ENCOUNTER → 2022-08-17 | Outpatient (CLI) | payer MEDICARE, SELFPAY ==
--- NOTE | 2022-08-17 09:01 | ECHOD_ITS ---
Reason For Study: HOCM, Procedure This was a limited 2D transthoracic echocardiogram. Patient on Camzyos. This is her 8 week echo since starting medication. Exam performed in department. Left Ventricle Normal LV size. Moderate concentric left ventricular hypertrophy. Left ventricular systolic function is normal. The estimated ejection fraction is 60 %. Mid Cavitary gradient of 29 mmHg at rest to 34 mmHg with Valsalva: This is a significant improvement compared to her previous dynamic gradient. No regional wall motion abnormalities noted. Right Ventricle Normal RV size. Normal systolic function. Mitral Valve Normal mitral valve. Systolic anterior motion of the mitral valve. Mild (1+) eccentric mitral valve insufficiency. Tricuspid Valve Normal tricuspid valve. Aortic Valve Trisinus/trileaflet aortic valve. Mild (1+) aortic valve insufficiency. Great Vessels Normal aortic root. The pulmonary artery is normal size. Normal inferior vena cava. Pericardium/Pleural No pericardial effusion. MMode/2D Measurements & Calculations LVIDd: 3.5 cm IVSd: 1.5 cm LVOT diam: 2.0 cm LVIDs: 1.7 cm LVPWd: 1.4 cm LVOT area: 3.3 cm2 RVDd: 3.5 cm FS: 50.8 % Ao root diam: 3.2 cm LAV(MOD-bp): 51.9 ml LVAd ap4: 24.2 cm2 LAV(MOD-bp) Indexed: 29.3 ml/m2 LVLd ap4: 8.0 cm LAV(MOD-sp2): 49.6 ml EDV(MOD-sp4): 59.2 ml LAV(MOD-sp4): 47.7 ml EDV(sp4-el): 62.1 ml LVAs ap4: 11.5 cm2 LVLs ap4: 7.0 cm ESV(MOD-sp4): 16.8 ml ESV(sp4-el): 16.3 ml EF(MOD-sp4): 71.7 % EF(sp4-el): 73.8 % SV(MOD-sp4): 42.5 ml SV(MOD-sp2): 48.0 ml LVAd ap2: 25.2 cm2 LVLd ap2: 7.9 cm EDV(MOD-sp2): 66.1 ml EDV(sp2-el): 68.2 ml LVAs ap2: 11.3 cm2 LVLs ap2: 6.5 cm ESV(MOD-sp2): 18.2 ml ESV(sp2-el): 16.8 ml EF(MOD-sp2): 72.5 % SV(sp4-el): 45.8 ml LA A4 area: 17.5 cm2 LA dimension(2D): 3.9 cm RA A4 area: 16.6 cm2 Doppler Measurements & Calculations Ao V2 max: 228.8 cm/sec Ao max P.9 mmHg Ao V2 mean: 171.2 cm/sec Ao mean P.1 mmHg Ao V2 VTI: 58.0 cm ECHO/Echo Limited w/Contrast Interpretation Summary Normal LV size. Moderate concentric left ventricular hypertrophy. Left ventricular systolic function is normal. The estimated ejection fraction is 60 %. Mild (1+) aortic valve insufficiency. Mild (1+) eccentric mitral valve insufficiency. Mid Cavitary gradient of 29 mmHg at rest to 34 mmHg with Valsalva: This is a si gnificant improvement compared to her previous dynamic gradient. Ordering Physician: Jana Bill/Lorenzo Gastelum Referring Physician: Maryam Campbell Performed By: Alia Bridges, CHRIS
== END | disposition home or self-care (01) ==
LOC: CVS 08:58
PROVIDERS: PCP Family Medicine; Visit Provider Physician Assistant Medical
DX: I35.0 Nonrheumatic aortic (valve) stenosis (principal)
CPT/HCPCS: 93308; C8924

== ENCOUNTER → 2022-09-19 | Outpatient (CLI) | payer MEDICARE, SELFPAY ==
--- NOTE | 2022-09-19 08:56 | ECHOL_ITS ---
Reason For Study: HOCM Procedure This was a limited 2D transthoracic echocardiogram. Myocardial strain analysis was performed in this exam to aid in the assessment of cardiac function. Exam performed in department. Patient on Camzyos. This is her 12 week echo since starting medication. Left Ventricle Normal LV size. Moderate concentric left ventricular hypertrophy. Left ventricular systolic function is normal. The estimated ejection fraction is 75 %. No regional wall motion abnormalities noted. Right Ventricle Normal RV size. Normal systolic function. Atria Normal left atrium. Normal right atrium. Mitral Valve Systolic anterior motion of the mitral valve. Mild (1+) eccentric mitral valve insufficiency. Tricuspid Valve Normal tricuspid valve. Mild (1+) tricuspid valve insufficiency. Pulmonary artery systolic pressure is 40 mmHg. Aortic Valve Trisinus/trileaflet aortic valve. Mild focal aortic valve calcification. Mild (1+) aortic valve insufficiency. Pulmonic Valve Normal pulmonic valve. Great Vessels Normal aortic root. The pulmonary artery is normal size. Normal inferior vena cava. Pericardium/Pleural No pericardial effusion. MMode/2D Measurements & Calculations LVIDd: 3.2 cm IVSd: 1.7 cm LVAd ap4: 24.1 cm2 LVIDs: 1.6 cm LVPWd: 1.3 cm LVLd ap4: 8.2 cm FS: 49.7 % EDV(MOD-sp4): 60.1 ml EDV(sp4-el): 60.0 ml LVAs ap4: 10.2 cm2 LVLs ap4: 6.4 cm ESV(MOD-sp4): 14.6 ml ESV(sp4-el): 13.8 ml EF(MOD-sp4): 75.8 % EF(sp4-el): 77.0 % SV(MOD-sp4): 45.6 ml SV(sp4-el): 46.2 ml Doppler Measurements & Calculations Ao V2 max: 220.1 cm/sec AI max atilio: 394.6 cm/sec LV V1 max: 187.4 cm/sec Ao max P.4 mmHg AI max P.3 mmHg LV V1 max P.1 mmHg Ao V2 mean: 168.9 cm/sec AI dec slope: 251.4 cm/sec2 LV V1 mean P.1 mmHg Ao mean P.3 mmHg AI P1/2t: 459.8 msec LV V1 mean: 142.2 cm/sec Ao V2 VTI: 56.1 cm LV V1 VTI: 46.6 cm AV (velocity ratio): 0.83 TR max atilio: 303.6 cm/sec TR max P.9 mmHg ECHO/Echo, Limited Study Interpretation Summary Normal LV size. Moderate concentric left ventricular hypertrophy. Left ventricular systolic function is normal. The estimated ejection fraction is 75 %. The resting gradient is noted to be approximately 38 mmHg increasing to 107 mmH g with Valsalva. Compared to the previous it appears that her mid ventricular pressures with Gilma cici have increased again. The global longitudinal strain is mildly abnormal. The global longitudin al strain = -14.8% (abnormal). Ordering Physician: Jana Bill Referring Physician: Maryam Campbell Performed By: Cherie Jennings RDCS, RVT
== END | disposition home or self-care (01) ==
LOC: CVS 08:56
PROVIDERS: PCP Family Medicine; Visit Provider Physician Assistant Medical
DX: I35.0 Nonrheumatic aortic (valve) stenosis (principal)
CPT/HCPCS: 93308

== ENCOUNTER → 2022-10-24 | Outpatient (CLI) | payer MEDICARE, SELFPAY ==
--- NOTE | 2022-10-24 13:59 | ECHOL_ITS ---
Reason For Study: HOCM Procedure This was a limited 2D transthoracic echocardiogram. Myocardial strain analysis was performed in this exam to aid in the assessment of cardiac function. Exam performed in department. Left Ventricle Normal LV size. Moderate eccentric left ventricular hypertrophy. Left ventricular systolic function is normal. The estimated ejection fraction is 60 %. No regional wall motion abnormalities noted. Right Ventricle Normal RV size. Normal systolic function. Atria Normal left atrium. Mitral Valve Systolic anterior motion of the mitral valve. Tricuspid Valve Normal tricuspid valve. Mild (1+) tricuspid valve insufficiency. Pulmonary artery systolic pressure is 40 mmHg. Aortic Valve Trisinus/trileaflet aortic valve. Mild (1+) aortic valve insufficiency. Pulmonic Valve Normal pulmonic valve. Great Vessels Normal aortic root. Pericardium/Pleural No pericardial effusion. MMode/2D Measurements & Calculations LVIDd: 3.7 cm IVSd: 1.6 cm Ao root diam: 3.6 cm LVIDs: 1.8 cm LVPWd: 1.4 cm FS: 51.8 % LVAd ap4: 25.7 cm2 LVAd ap2: 27.2 cm2 SV(MOD-sp4): 42.3 ml LVLd ap4: 8.2 cm LVLd ap2: 8.2 cm EDV(MOD-sp4): 65.3 ml EDV(MOD-sp2): 74.9 ml EDV(sp4-el): 68.3 ml EDV(sp2-el): 76.8 ml LVAs ap4: 13.4 cm2 LVAs ap2: 13.9 cm2 LVLs ap4: 6.7 cm LVLs ap2: 6.7 cm ESV(MOD-sp4): 22.9 ml ESV(MOD-sp2): 24.1 ml ESV(sp4-el): 22.7 ml ESV(sp2-el): 24.5 ml EF(MOD-sp4): 64.8 % EF(MOD-sp2): 67.8 % EF(sp4-el): 66.7 % SV(MOD-sp2): 50.8 ml SV(sp4-el): 45.6 ml LA dimension(2D): 3.7 cm Doppler Measurements & Calculations Ao V2 max: 206.6 cm/sec AI max atilio: 408.6 cm/sec LV V1 max: 152.5 cm/sec Ao max P.1 mmHg AI max P.8 mmHg LV V1 max P.3 mmHg Ao V2 mean: 153.4 cm/sec AI dec slope: 263.2 cm/sec2 LV V1 mean P.9 mmHg Ao mean P.2 mmHg AI P1/2t: 454.8 msec LV V1 mean: 116.1 cm/sec Ao V2 VTI: 46.5 cm LV V1 VTI: 38.3 cm AV (velocity ratio): 0.82 TR max atilio: 302.7 cm/sec TR max P.6 mmHg ECHO/Echo, Limited Study Interpretation Summary Normal LV size. Moderate eccentric left ventricular hypertrophy. Left ventricular systolic function is normal. The estimated ejection fraction is 60 %. Mild (1+) aortic valve insufficiency. The resting gradient across the left ventricular outflow tract was 9 mmHg with a peak Valsalva gradient of 23 mmHg. This represents a significant improvement in her function as well as the gradient. The global longitudinal strain is borderline abnormal. The global brianna gitudinal strain has improved. The global longitudinal strain = -16.6% (abnormal). Ordering Physician: Jana Bill/Lorenzo Gastelum Referring Physician: Maryam Campbell Performed By: Alia Bridges RDCS
== END | disposition home or self-care (01) ==
LOC: CVS 13:57
PROVIDERS: PCP Family Medicine; Referring Provider Physician Assistant Medical; Visit Provider Physician Assistant Medical
DX: I42.1 Obstructive hypertrophic cardiomyopathy (principal)
CPT/HCPCS: 93308

== ENCOUNTER → 2022-12-17 | Outpatient (CLI) | payer MEDICARE, SELFPAY ==
--- NOTE | 2022-12-17 08:59 | ECHOL_ITS ---
Reason For Study: Lam FRANCOIS patient Procedure This was a 2D Doppler, Color Flow transthoracic echocardiogram. Exam performed in department. Left Ventricle Normal LV size. Moderate concentric left ventricular hypertrophy. Left ventricular systolic function is normal. The estimated ejection fraction is 60 %. No regional wall motion abnormalities noted. Right Ventricle Normal RV size. Normal systolic function. Atria Normal left atrium. Normal right atrium. Mitral Valve Systolic anterior motion of the mitral valve. Mild (1+) eccentric mitral valve insufficiency. Tricuspid Valve Normal tricuspid valve. Mild (1+) tricuspid valve insufficiency. Pulmonary artery systolic pressure is 34 mmHg. Aortic Valve Normal aortic valve. Mild focal aortic valve calcification. Mild (1+) eccentric aortic valve insufficiency. Pulmonic Valve Normal pulmonic valve. Great Vessels Normal aortic root. The pulmonary artery is normal size. Normal inferior vena cava. Pericardium/Pleural No pericardial effusion. MMode/2D Measurements & Calculations LVIDd: 3.4 cm IVSd: 1.6 cm LVOT diam: 2.0 cm LVIDs: 1.7 cm LVPWd: 1.4 cm LVOT area: 3.1 cm2 RVDd: 3.7 cm FS: 50.8 % Ao root diam: 3.3 cm LAV(MOD-bp): 53.2 ml LVAd ap4: 24.0 cm2 LAV(MOD-bp) Indexed: 30.4 ml/m2 LVLd ap4: 7.7 cm LAV(MOD-sp2): 48.9 ml EDV(MOD-sp4): 61.8 ml LAV(MOD-sp4): 52.0 ml EDV(sp4-el): 63.3 ml LVAs ap4: 12.2 cm2 LVLs ap4: 6.5 cm ESV(MOD-sp4): 20.2 ml ESV(sp4-el): 19.5 ml EF(MOD-sp4): 67.3 % EF(sp4-el): 69.2 % LVAd ap2: 23.7 cm2 SV(MOD-sp4): 41.6 ml SV(MOD-sp2): 45.0 ml LVLd ap2: 7.7 cm EDV(MOD-sp2): 62.0 ml EDV(sp2-el): 62.0 ml LVAs ap2: 11.1 cm2 LVLs ap2: 6.2 cm ESV(MOD-sp2): 17.0 ml ESV(sp2-el): 16.7 ml EF(MOD-sp2): 72.5 % SV(sp4-el): 43.8 ml LA dimension(2D): 3.5 cm LA A4 area: 18.9 cm2 RA A4 area: 16.6 cm2 Doppler Measurements & Calculations Ao V2 max: 208.9 cm/sec AI max atilio: 386.5 cm/sec LV V1 max: 152.2 cm/sec Ao max P.5 mmHg AI max P.8 mmHg LV V1 max P.3 mmHg Ao V2 mean: 141.1 cm/sec LV V1 mean P.3 mmHg Ao mean P.0 mmHg AI dec slope: 195.8 cm/sec2 LV V1 mean: 108.5 cm/sec Ao V2 VTI: 46.4 cm AI P1/2t: 578.1 msec LV V1 VTI: 35.7 cm AV (velocity ratio): 0.77 ANANDA(I,D): 2.4 cm2 ANANDA(V,D): 2.3 cm2 SV(LVOT): 111.3 ml TR max atilio: 286.9 cm/sec TR max P.9 mmHg ECHO/Echo, Limited Study Interpretation Summary Normal LV size. Moderate concentric left ventricular hypertrophy. Left ventricular systolic function is normal. The estimated ejection fraction is 60 %. The resting gradient across the left ventricular outflow tract was noted to be 12 mmHg with a peak Valsalva gradient of 19 mmHg. This appears to be unchanged from the echocardiog josse from October 25, 2022 but is significant improvement from her pretreatment echocardiogram. The global longitudinal strain is essentially unchanged. The global longitudinal strain is mildly abnormal. Th e global longitudinal strain = -16.4% (abnormal). Ordering Physician: Jana Bill/Lorenzo Gastelum Referring Physician: Maryam Campbell Performed By: Alia Bridges RDCS
== END | disposition home or self-care (01) ==
PROVIDERS: PCP Family Medicine; Referring Provider Physician Assistant Medical; Visit Provider Physician Assistant Medical
DX: I10 Essential (primary) hypertension (principal)
CPT/HCPCS: 93308

== ENCOUNTER 2023-01-04 01:09 | Emergency (ER) | payer MEDICARE, SELFPAY ==
[2023-01-04 01:11] VITALS: BP 158/85; PULSE 74; RESP 16; TEMP 35.9; O2SAT 99; BMI 26.5
[2023-01-04 01:30] VITALS: O2SAT 98
--- NOTE | 2023-01-04 01:30 | EDS_ITS ---
HPI History of Present Illness Chief Complaint: Anxiety Informant: patient Narrative Narrative: Patient is a heart failure patient who was recently induced/started on Camzyos. She then had a sleep study because of a chronic cough for 3 years, she states she was diagnosed with restless leg syndrome, even though she has no symptoms of restless leg syndrome and was told that she needed to go on a medication to treat this so that it does not turn into Parkinson's disease. This medication she cannot recall, but she started it 1 week ago and ever since starting it, she has not been able to sleep at all. She presents at 1:30 AM wondering if we can prescribe her something other than Paxil that she can be on that may help her to sleep at night, but that also does not interact with the Camzos. [facility] Medical History Acute blood loss anemia Atherosclerosis of coronary artery of [place] heart without angina pectoris Back pain Cardiomyopathy, hypertrophic obstructive Essential hypertension Generalized anxiety disorder Grief Hemorrhoid Hemorrhoid prolapse Hyperlipidemia Left ventricular hypertrophy Long-term use of high-risk medication Nonrheumatic aortic (valve) stenosis Rectal bleeding Home Medications multivitamin,[id number] (Complete Multivitamin tablet) 1 tab PO DAILY SUPPLEMENT 07/21/18 [History Last Taken 09/16/18] paroxetine HCl 20 mg tablet 20 mg PO QHS ANXIETY 07/21/18 [History Last Taken 09/15/18] metoprolol succinate 25 mg tablet,extended release 24 hr 25 mg PO DAILY #90 tabs 06/05/22 [Rx Last Taken Unknown] atorvastatin 40 mg tablet 40 mg PO QHS #90 tabs 07/19/22 [Rx Last Taken Unknown] amlodipine 10 mg tablet 10 mg PO DAILY BP #90 tabs 10/09/22 [Rx Last Taken Unknown] mavacamten 10 mg capsule 5 mg PO DAILY 11/01/22 [History Last Taken Unknown] zolpidem 10 mg tablet 10 mg PO QHS PRN insomnia #4 tabs 01/04/23 [Rx Last Taken Unknown] Allergy/AdvReac Type Severity Reaction Status Date / Time hydrocodone [From Vicodin] AdvReac Nausea/Vom/ Verified 01/04/23 01:10 Diarrhea lisinopril AdvReac cough Verified 01/04/23 01:10 oxycodone [From Percocet] AdvReac Nausea/Vom/ Verified 01/04/23 01:10 Diarrhea Family History Brother Cancer pancreatic Father Aneurysm Brother Heart disease Sister Alzheimer's dementia Surgical History History of back surgery History of cataract extraction History of colonoscopy History of hysterectomy History of tubal ligation History of YAG laser capsulotomy of lens of left eye S/P hemorrhoidectomy Status post Mohs surgery Social History Smoking Status: Never smoker alcohol intake: never substance use type: does not use ROS ROS ED Constitutional Constitutional ED: Reports other Details: insomnia ; Denies chills or fever(s) Cardiovascular Cardiovascular: Denies chest pain Respiratory/Chest Respiratory/Chest: Denies dyspnea Gastrointestinal Gastrointestinal: Denies diarrhea or vomiting Integumentary Denies abscess or rash Neurologic Neurologic: Reports systems reviewed and no addt'l complaints, except as documented EXAM Physical Exam Const Vital Signs: 01/04/23 01:11 Temperature 96.7 F L Temperature Source Temporal Pulse Rate 74 Respiratory Rate 16 Blood Pressure 158/85 H Blood Pressure Mean 109 Pulse Ox 99 Oxygen Delivery Method Room Air Positive well nourished and well developed General Appearance ED: well developed and NAD HEENT Reports moist mucous membranes Eyes PERRL and EOMs intact bilaterally Neuro oriented x3, CN's II-XII intact bilaterally, no sensory deficits noted and gait normal Neuro Narrative: Normal speech Motor Exam: strength 5/5 throughout Psych mental status grossly normal Skin no rashes or lesions noted and no wounds MDM MDM MDM Narrative Medical decision making narrative: As I discussed with the patient, we do not prescribe SSRIs out of the emergency department for a plethora of reasons. However I am comfortable prescribing her something to use temporarily as needed for sleep until she can follow-up. She states she has attempted to call her PCP and prescribing physician, but she cannot get through to a doctor to explain her situation and look for a different solution. I am prescribing her some Ambien to use temporarily, there does not appear to be a dangerous interaction with her mavacamten, on the contrary it can induce hepatic metabolism of zolpidem and it may be less effective. Since we cannot dispense out of the emergency department and she drove herself here, giving her a prescription for 4 tablets that she can use when she gets home and our pharmacy will fill that for her. Discharge Plan Triage Chief Complaint: Anxiety ED Provider: Jabari Day Dx/Rx/DC Orders Clinical Impression: Insomnia due to drug Instructions: ED Insomnia Prescriptions: New zolpidem 10 mg tablet 10 mg PO QHS PRN (Reason: insomnia) Qty: 4 0RF No Action paroxetine HCl 20 mg tablet 20 mg PO QHS Complete Multivitamin tablet 1 tab PO DAILY mavacamten 10 mg capsule 5 mg PO DAILY metoprolol succinate 25 mg tablet extended release 24 hr 25 mg PO DAILY Qty: 90 3RF atorvastatin 40 mg tablet 40 mg PO QHS Qty: 90 3RF amlodipine 10 mg tablet 10 mg PO DAILY Qty: 90 3RF Primary Care Provider: Maryam Campbell Referrals: Maryam Campbell, DO [Primary Care Provider] - (and/or the physician prescr ibing new medication) Disposition Disposition: Home, Self Care
== END 2023-01-04 02:15 | disposition home or self-care (01) ==
LOC: ED 01:38
PROVIDERS: Emergency Provider Emergency Medicine; PCP Family Medicine; Visit Provider Emergency Medicine
DX: F19.982 Other psychoactive substance use, unspecified with psychoactive substance-induced sleep disorder (principal); I11.0 Hypertensive heart disease with heart failure; I50.9 Heart failure, unspecified; I42.1 Obstructive hypertrophic cardiomyopathy; Z90.710 Acquired absence of both cervix and uterus; I25.10 Atherosclerotic heart disease of native coronary artery without angina pectoris; E78.5 Hyperlipidemia, unspecified; Z79.899 Other long term (current) drug therapy; F41.1 Generalized anxiety disorder
CPT/HCPCS: 99282

== ENCOUNTER → 2023-01-08 | Outpatient (CLI) | payer MEDICARE, SELFPAY ==
--- NOTE | 2023-01-08 07:16 | CT_ITS ---
INDICATION: COUGH EXAMINATION: CT CHEST WITHOUT CONTRAST - CT Chest W/O Contrast Injection TECHNIQUE: Helically acquired images were obtained of the chest. A radiation dose optimization technique was used for this scan. IV Contrast dosage and agent: None. RADIATION DOSAGE (If Supplied By Facility): CTDIvol = ( 11.24 ) mGy, DLP = ( 421.42 ) mGycm COMPARISON: Chest x-ray of 09/08/2021. FINDINGS: LUNGS, PLEURA AND LARGE AIRWAYS: Mild hazy groundglass opacities/infiltrates in the left upper lobe and superior segment of the left lower lobe. Mild infiltrate in the left lower lobe as well. Linear stranding/atelectasis in the left lung apex and left lower lobe. Mild right apical pleural fibrotic changes. 5 mm right lower lobe nodule seen on image 80 series 4. 4 mm right lower lobe nodule on image 85 series 4. 7 mm the right lower lobe seen on image 90 series 4. Additionally calcified granuloma in the right middle lobe.. Central bronchiectatic changes worse on the right side. No evidence of pleural effusions or pneumothorax. THYROID: No thyroid lesions. 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 Atherosclerotic calcifications and mild tortuosity of the thoracic aorta. Borderline cardiomegaly. Calcifications of the mitral annulus. CORONARY ARTERIES: Coronary artery calcification are visualized. MEDIASTINUM AND JUSTINA: No mediastinal or hilar adenopathy. Esophagus is unremarkable. No hiatal hernia. UPPER ABDOMEN: Calcified granulomata in the spleen. BONES: Degenerative changes of the spine. CT/Chest without Contrast IMPRESSION: 1. Mild hazy opacities/infiltrates in the left upper and lower lobes could be due to early pneumonia. 2. Multiple small noncalcified nodules for which follow-up exam in 3 months is recommended. 3. Central chronic bronchiectatic changes and mild atelectasis or scarring in the lower lungs. 4. Residuals of old granulomatous disease. Electronically Signed: Prosper Griffith MD at 14:19 EDT ,
--- NOTE | 2023-01-08 07:36 | BI_ITS ---
MAMMOGRAPHY - BILATERAL SCREENING REASON FOR EXAM: Female, 77 years old. Routine annual screening examination. PERTINENT HISTORY: Non-contributory. Remote left excisional breast biopsy. TECHNIQUE: Digital bilateral breast valencia (3D mammographic acquisition) in the CC and MLO projections. 2-D mediolateral oblique (MLO) and craniocaudad (CC) views of both breasts were obtained. CAD: Full Field Digital Mammography with Computer Added Detection was performed. COMPARISON: Comparison is made with prior study dated January 05, 2022 and January 04, 2021. FINDINGS: Breast Composition: There are scattered areas of fibroglandular density. There are no dominant masses or suspicious calcifications. Stable small benign-appearing bilateral axillary lymph nodes. No other significant abnormalities are identified. There has been no significant change since the prior study. BI/SCRN MAMM (CAD)W/VALENCIA BILAT IMPRESSION: Stable bilateral screening mammogram. Yearly follow-up mammogram recommended. (A) ASSESSMENT CATEGORY: BIRADS Category 2: Benign. A letter regarding these results will be sent to the patient by the facility within 30 days. Approximately 10% of breast cancers are not detected by mammography. A normal mammogram should not delay biopsy of a clinically suspicious abnormality. [id number] Electronically Signed: Pablo Gonzales MD at 11:07 EDT ,
== END | disposition home or self-care (01) ==
PROVIDERS: PCP Family Medicine; Referring Provider Internal Medicine Pulmonary Disease; Visit Provider Family Medicine
DX: Z12.31 Encounter for screening mammogram for malignant neoplasm of breast (principal); R05.9 Cough, unspecified
CPT/HCPCS: 71250; 77063; 77067

== ENCOUNTER 2023-01-10 05:34 | Emergency (ER) | payer MEDICARE, SELFPAY ==
[2023-01-10 05:35] VITALS: BP 117/67; PULSE 73; RESP 18; TEMP 36.4; O2SAT 99; BMI 26.2
--- NOTE | 2023-01-10 06:10 | EDS_ITS ---
HPI HPI - Psych History of Present Illness Chief Complaint: Anxiety Informant: patient Narrative Narrative: Patient does have a [id number] female with history of hypertrophic obstructive cardiomyopathy, on Camzyos, anxiety and some depression (previously on Paxil) presenting with worsening insomnia, anxiety and now some suicidal thoughts. Patient states she does not really feel suicidal but she has now having thoughts of thinking maybe would be better if she was not here. She does not have a plan. She talks about her grandchildren and is hopeful for the future but states she cannot keep doing with his anxiety and insomnia. She states for the past 4 nights she has not been able to sleep. She states she was able to sleep for hours tonight but then woke up and could not get her child back to sleep. Prior to that she was at her daughter's house in [place] for her granddaughter second birthday and was doing much better. Before that trip she was seen in our ER on 01/04 for insomnia. She been given a prescription for Ambien however she not get it filled. She does have a lot of anxiety about medication interactions. In addition she states that she had been on Paxil but when she had followed up for a sleep test they told her she had restless leg syndrome and put her on ropinirole and told her she needs to stop her Paxil. Patient does not complain of the sensation of restless legs and has never been told she has restless leg syndrome before. She is not sure if that is an accurate diagnosis for her. Patient does note that she followed up with her PCP on Saturday, 2 days ago, and was prescribed Wellbutrin. She is not taking that. She did take Paxil this morning and is planning on restarting it. She denies any physical complaints at this time. [facility] Medical History Acute blood loss anemia Atherosclerosis of coronary artery of [place] heart without angina pectoris Back pain Cardiomyopathy, hypertrophic obstructive Essential hypertension Generalized anxiety disorder Grief Hemorrhoid Hemorrhoid prolapse Hyperlipidemia Left ventricular hypertrophy Long-term use of high-risk medication Nonrheumatic aortic (valve) stenosis Rectal bleeding Home Medications multivitamin,[id number] (Complete Multivitamin tablet) 1 tab PO DAILY SUPPLEMENT 07/21/18 [History Last Taken 09/16/18] paroxetine HCl 20 mg tablet 20 mg PO QHS ANXIETY 07/21/18 [History Last Taken 09/15/18] metoprolol succinate 25 mg tablet,extended release 24 hr 25 mg PO DAILY #90 tabs 06/05/22 [Rx Last Taken Unknown] atorvastatin 40 mg tablet 40 mg PO QHS #90 tabs 07/19/22 [Rx Last Taken Unknown] amlodipine 10 mg tablet 10 mg PO DAILY BP #90 tabs 10/09/22 [Rx Last Taken Unknown] mavacamten 10 mg capsule 5 mg PO DAILY 11/01/22 [History Last Taken Unknown] zolpidem 10 mg tablet 10 mg PO QHS PRN insomnia #4 tabs 01/04/23 [Rx Last Taken Unknown] alprazolam 0.5 mg tablet (Xanax) 0.5 mg PO Q6H PRN PRN anxiety #1 TAB 01/10/23 [Rx Last Taken Unknown] zolpidem 10 mg tablet (Ambien) 10 mg PO QHS PRN insomnia #4 tabs 01/10/23 [Rx Last Taken Unknown] Allergy/AdvReac Type Severity Reaction Status Date / Time hydrocodone [From Vicodin] AdvReac Nausea/Vom/ Verified 01/10/23 05:35 Diarrhea lisinopril AdvReac cough Verified 01/10/23 05:35 oxycodone [From Percocet] AdvReac Nausea/Vom/ Verified 01/10/23 05:35 Diarrhea Family History Brother Cancer pancreatic Father Aneurysm Brother Heart disease Sister Alzheimer's dementia Surgical History History of back surgery History of cataract extraction History of colonoscopy History of hysterectomy History of tubal ligation History of YAG laser capsulotomy of lens of left eye S/P hemorrhoidectomy Status post Mohs surgery Social History Smoking Status: Never smoker alcohol intake: never substance use type: does not use ROS ROS ED Constitutional Constitutional ED: Denies chills or fever(s) Cardiovascular Cardiovascular: Denies chest pain Respiratory/Chest Respiratory/Chest: Reports cough and other Details: Chronic cough?unchanged Gastrointestinal Gastrointestinal: Denies abdominal pain, nausea or vomiting Neurologic Neurologic: Denies headache(s) Psychiatric Psychiatric: Reports anxiety, depression and suicidal thoughts; Denies suicidal ideation EXAM Physical Exam Const Vital Signs: 01/10/23 05:35 Temperature 97.6 F L Temperature Source Temporal Pulse Rate 73 Respiratory Rate 18 Blood Pressure 117/67 Blood Pressure Mean 83 Pulse Ox 99 Oxygen Delivery Method Room Air Positive well nourished and well developed General Appearance ED: well developed and NAD HEENT Reports moist mucous membranes Eyes PERRL Neck supple Resp normal respiratory effort Extremity normal to inspection General Extremety ED: Negative for edema General Extremity: Negative for edema Neuro oriented x3 Sensorium / Orientation: alert Motor Exam: muscle tone normal throughout Psych thought process normal, cooperative, affect normal and speech normal Mood & Affect: anxious and tearful Thought Content: No suicidality and No homicidality Attention / Concentration: attention grossly intact Memory / Cognition: memory grossly intact Insight: insight good Judgement: judgement good Skin Lesions: no lesions Rashes: no rashes MDM MDM MDM Narrative Medical decision making narrative: Patient is evaluated for insomnia which seems to be triggering worsening anxiety and some thoughts of feeling like she might be better off . She does not have a suicidal plan and does not want to kill herself. States that is why she came to the emergency room. She just states she cannot take it anymore. She h ad previously canceled her prescription for Ambien. Patient did drive her self here. Will be given a prescription for 1 pill of 0.5 mg Ativan to take today as needed for anxiety symptoms. She is also represcribed the Ambien that had previously been prescribed to her however she had canceled that prior prescription. Patient is quite agreeable this plan of care. Patient is contracted for safety. She is hopeful for the future and states really she just needs some to talk to. She is given information for outpatient psychiatric follow-up as well as information for the counseling center. She is encouraged to return to the emergency room or call the ER if she has worsening thoughts of depression/anxiety and does not know what to do. She does not feel like she is to the point that she needs a [facility] psych evaluation and I agree. Patient discharged home in stable condition. Is counseled to not operate heavy machinery/drive while taking any other medications prescribed today. Discharge Plan Triage Chief Complaint: Anxiety ED Provider: Julia Hunt Dx/Rx/DC Orders Clinical Impression: Insomnia, Anxiety Instructions: ED Anxiety Reaction, CONTRACT, No Harm, ED Insomnia Prescriptions: New alprazolam [Xanax] 0.5 mg tablet 0.5 mg PO Q6H PRN PRN (Reason: anxiety) Qty: 1 0RF zolpidem [Ambien] 10 mg tablet 10 mg PO QHS PRN (Reason: insomnia) Qty: 4 0RF No Action paroxetine HCl 20 mg tablet 20 mg PO QHS Complete Multivitamin tablet 1 tab PO DAILY mavacamten 10 mg capsule 5 mg PO DAILY metoprolol succinate 25 mg tablet extended release 24 hr 25 mg PO DAILY Qty: 90 3RF zolpidem 10 mg tablet 10 mg PO QHS PRN (Reason: insomnia) Qty: 4 0RF atorvastatin 40 mg tablet 40 mg PO QHS Qty: 90 3RF amlodipine 10 mg tablet 10 mg PO DAILY Qty: 90 3RF Primary Care Provider: Maryam Campbell Referrals: Counseling,Center [Group of Physicians] - 1-2 Days if not improving Maryam Campbell DO [Primary Care Provider] - Jack Garcia DO [Med Staff - [facility]] - As Needed Activity Restrictions/Additional Instructions: You have been given 1 anxiety pill to take when you get home. I recommend taking half of the pill to see how you feel and you may then take a second. Do not drive or operate heavy machinery while taking this. It can be sedating. In addition you have been given a new prescription for the sleep medicine prescribed to you on your last ER visit. I do think it is a good idea for you to resume your Paxil however you should not take your new medicine, Wellbutrin with it. Just take 1 or the other. All of these medicines are safe to take with your heart medicine,Camzyos. If you are having worsening thoughts of harming yourself/suicide please call the counseling center, come to the emergency room or reach out to someone.
== END 2023-01-10 07:26 | disposition home or self-care (01) ==
PROVIDERS: Emergency Provider Emergency Medicine; PCP Family Medicine; Visit Provider Emergency Medicine
DX: G47.00 Insomnia, unspecified (principal); F41.9 Anxiety disorder, unspecified; I25.10 Atherosclerotic heart disease of native coronary artery without angina pectoris
CPT/HCPCS: 99282

== ENCOUNTER → 2023-02-01 | Outpatient (CLI) | payer MEDICARE, SELFPAY | END | disposition home or self-care (01) | LOC: LABSPEC 07:27 | PROVIDERS: PCP Family Medicine; Referring Provider Internal Medicine Pulmonary Disease; Visit Provider Internal Medicine Pulmonary Disease | DX: R05.9 Cough, unspecified (principal) | CPT/HCPCS: 87015; 87070; 87116; 87205; 87206 ==

== ENCOUNTER → 2023-03-20 | Outpatient (CLI) | payer MEDICARE, SELFPAY ==
--- NOTE | 2023-03-20 15:03 | ECHOL_ITS ---
Version 2 Reason For Study: Lam FRANCOIS patient Procedure This was a limited 2D transthoracic echocardiogram. Myocardial strain analysis was performed in this exam to aid in the assessment of cardiac function. Exam performed in department. Left Ventricle Normal LV size. Moderate eccentric left ventricular hypertrophy. Left ventricular systolic function is normal. The estimated ejection fraction is 65 %. No regional wall motion abnormalities noted. Right Ventricle Normal RV size. Normal systolic function. Atria Normal left atrium. Normal right atrium. Mitral Valve Bileaflet diffuse mitral valve thickening. Systolic anterior motion of the mitral valve. Mild (1+) eccentric mitral valve insufficiency. Tricuspid Valve Normal tricuspid valve. Mild to moderate (1-2+) tricuspid valve insufficiency. Pulmonary artery systolic pressure is 41 mmHg. Aortic Valve Trisinus/trileaflet aortic valve. Mild (1+) aortic valve insufficiency. Pulmonic Valve Normal pulmonic valve. Great Vessels Normal aortic root. The pulmonary artery is normal size. Normal inferior vena cava. Pericardium/Pleural No pericardial effusion. MMode/2D Measurements & Calculations LVIDd: 3.5 cm IVSd: 1.5 cm LVAd ap4: 21.8 cm2 LVIDs: 1.8 cm LVPWd: 1.1 cm LVLd ap4: 7.4 cm FS: 49.9 % EDV(MOD-sp4): 52.8 ml EDV(sp4-el): 54.6 ml LVAs ap4: 11.1 cm2 LVLs ap4: 6.2 cm ESV(MOD-sp4): 17.1 ml ESV(sp4-el): 16.9 ml EF(MOD-sp4): 67.6 % EF(sp4-el): 69.1 % SV(MOD-sp4): 35.7 ml SV(sp4-el): 37.7 ml Doppler Measurements & Calculations Ao V2 max: 192.1 cm/sec AI max atilio: 416.4 cm/sec LV V1 max: 159.1 cm/sec Ao max P.8 mmHg AI max P.3 mmHg LV V1 max P.1 mmHg Ao V2 mean: 155.1 cm/sec AI dec slope: 264.2 cm/sec2 LV V1 mean P.4 mmHg Ao mean P.2 mmHg AI P1/2t: 461.5 msec LV V1 mean: 132.0 cm/sec Ao V2 VTI: 49.0 cm LV V1 VTI: 39.2 cm AV (velocity ratio): 0.80 TR max atilio: 309.1 cm/sec TR max P.2 mmHg ECHO/Echo, Limited Study Interpretation Summary Normal LV size. Left ventricular systolic function is normal. The estimated ejection fraction is 65 %. Mild (1+) eccentric mitral valve insufficiency. The resting gradient across the outflow tract is 13 mmHg with Valsalva gradient of 18 mmHg. Compared to the previous echocardiogram the above findings are essentially unchanged. The global longitudinal strain is -16 which is also essentially unchanged from before. Ordering Physician: Jana Bill Referring Physician: Maryam Campbell Performed By: Cherie Jennings, CHRIS, RVT
== END | disposition home or self-care (01) ==
LOC: CVS 15:01
PROVIDERS: PCP Family Medicine; Referring Provider Physician Assistant Medical; Visit Provider Physician Assistant Medical
DX: I42.1 Obstructive hypertrophic cardiomyopathy (principal); Z79.899 Other long term (current) drug therapy
CPT/HCPCS: 93308

== ENCOUNTER 2023-04-17 11:37 | Emergency (ER) | payer MEDICARE, SELFPAY ==
[2023-04-17 11:40] VITALS: BP 131/79; PULSE 70; RESP 20; TEMP 36.4; O2SAT 95; BMI 26.6
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
[2023-04-17 13:05] VITALS: BP 141/79; PULSE 79; O2SAT 94
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
[2023-04-17] MEDS: 0.9% Normal Saline (1000mL) 1,000 ML 150 ML IV (14:21)
[2023-04-17 14:29] LABS: Absolute Lymphocyte Count 1.95 X10^3/uL (0.83-4.51); Absolute Neutrophil Count 15.5 X10^3/uL (2.0-7.7); Basophil# 0.08 X10^3/uL; Basophil% 0.4 % (0-1); Eosinophil# 0.22 X10^3/uL; Eosinophils% 1.2 % (0-5); Hematocrit 47.8 % (37-47); Hemoglobin 15.3 g/dL (12.0-15.0); Lymphocyte # 1.95 X10^3/ul (0.83-4.51); Lymphocyte % 10.2 % (19-41); Mean Corpuscular Volume 87.5 fL (81-99); Mean Platelet Vol. 10.1 fl (6.2-12.0); Monocyte# 1.25 X10^3/uL; Monocyte% 6.5 % (0-10); NRBC Flagged by Analyzer 0 % (0-5); Neutrophil # 15.54 X10^3/uL (2.7-7.7); Neutrophil % 81.2 % (47-70); Platelet Count 308 K/mm3 (150-450); RBC Distribution Width CV 13.7 % (11.6-14.6); RBC Distribution Width SD 43.7 fl (35.1-43.9); Red Blood Count 5.46 M/mm3 (4.2-5.4); White Blood Count 19.1 K/mm3 (4.4-11.0)
[2023-04-17 14:42] LABS: AST(SGOT) 27 U/L (15-37); Alanine Aminotransfer ALT/SGPT 29 U/L (13-56); Albumin, Serum 4.1 g/dL (3.2-5.0); Alkaline Phosphatase 79 U/L (45-117); Anion Gap 5 (5-15); BUN 16 mg/dL (7-18); BUN/Creat Ratio 26.1 RATIO (10-20); Calcium,Total 9.6 mg/dL (8.5-10.1); Chloride 100 mmol/L (98-107); Creatinine, Serum 0.61 mg/dL (0.55-1.02); EST Glomerular Filtration Rate 100 mL/min (>60); Est Glom Filt Rate - Afr Amer 121 mL/min (>60); Estimated Creatinine Clearance 41.05 ml/min; Glucose 119 mg/dL (74-106); Potassium 3.5 mmol/L (3.5-5.1); Protein, Total 8.1 g/dL (6.4-8.2); Sodium Level 136 mmol/L (136-145)
[2023-04-17 15:07] VITALS: BP 137/75; PULSE 78; RESP 17; O2SAT 95
[2023-04-17 15:43] VITALS: BP 137/75
[2023-04-17 15:50] VITALS: BP 137/75; RESP 17
== END 2023-04-17 15:44 | disposition other institution (70) ==
PROVIDERS: Emergency Provider Emergency Medicine; PCP Family Medicine; Visit Provider Emergency Medicine
DX: R41.0 Disorientation, unspecified (principal); I62.9 Nontraumatic intracranial hemorrhage, unspecified; E78.5 Hyperlipidemia, unspecified; S60.222A Contusion of left hand, initial encounter; I10 Essential (primary) hypertension; Y92.410 Unspecified street and highway as the place of occurrence of the external cause; I25.10 Atherosclerotic heart disease of native coronary artery without angina pectoris; V49.40XA Driver injured in collision with unspecified motor vehicles in traffic accident, initial encounter; W22.11XA Striking against or struck by driver side automobile airbag, initial encounter; Z79.899 Other long term (current) drug therapy; Z98.49 Cataract extraction status, unspecified eye; Z90.710 Acquired absence of both cervix and uterus
CPT/HCPCS: 70450; 71045; 72125; 72170; 73130; 80053; 85025; 96360; 99285; J7030; A4216

== ENCOUNTER → 2023-06-19 | Outpatient (CLI) | payer MEDICARE, SELFPAY ==
--- NOTE | 2023-06-19 09:02 | ECHOL_ITS ---
Reason For Study: HOCM Procedure This was a limited 2D transthoracic echocardiogram. Myocardial strain analysis was performed in this exam to aid in the assessment of cardiac function. Exam performed in department. Left Ventricle Normal LV size. Moderate eccentric left ventricular hypertrophy. Left ventricular systolic function is normal. The estimated ejection fraction is 65 %. No regional wall motion abnormalities noted. Right Ventricle Normal RV size. Normal systolic function. Atria Normal left atrium. Normal right atrium. Mitral Valve Bileaflet diffuse mitral valve thickening. Mild (1+) eccentric mitral valve insufficiency. Tricuspid Valve Normal tricuspid valve. Mild (1+) tricuspid valve insufficiency. Aortic Valve Trisinus/trileaflet aortic valve. Mild focal aortic valve calcification. Mild (1+) aortic valve insufficiency. Pulmonic Valve Normal pulmonic valve. Great Vessels Mild to moderately dilated aortic root. The pulmonary artery is normal size. Pericardium/Pleural No pericardial effusion. MMode/2D Measurements & Calculations LVIDd: 3.7 cm IVSd: 1.5 cm Ao root diam: 4.2 cm LVIDs: 2.0 cm LVPWd: 1.1 cm FS: 44.5 % LVAd ap4: 25.2 cm2 SV(MOD-sp4): 48.9 ml SV(sp4-el): 51.5 ml LVLd ap4: 7.4 cm EDV(MOD-sp4): 70.7 ml EDV(sp4-el): 72.7 ml LVAs ap4: 12.6 cm2 LVLs ap4: 6.4 cm ESV(MOD-sp4): 21.8 ml ESV(sp4-el): 21.2 ml EF(MOD-sp4): 69.2 % EF(sp4-el): 70.8 % Doppler Measurements & Calculations Ao V2 max: 183.0 cm/sec LV V1 max: 144.7 cm/sec TR max atilio: 325.7 cm/sec Ao max P.4 mmHg LV V1 max P.4 mmHg TR max P.4 mmHg Ao V2 mean: 134.6 cm/sec LV V1 mean P.8 mmHg Ao mean P.7 mmHg LV V1 mean: 117.4 cm/sec Ao V2 VTI: 39.8 cm LV V1 VTI: 35.6 cm AV (velocity ratio): 0.89 ECHO/Echo, Limited Study Interpretation Summary Normal LV size. Moderate eccentric left ventricular hypertrophy. Left ventricular systolic function is normal. The estimated ejection fraction is 65 %. Mild to moderately dilated aortic root. The resting gradient across the left ventricular outflow tract is approximately 10 mmHg with a peak Valsalva gradient of 16 mmHg. In comparison to the previous echocardiogram from March 2023 the above are essentially unchanged. Myocardial global longitudinal strain is also at approximately 15.2 which is minimally reduced only. Ordering Physician: Jana Bill Referring Physician: Maryam Campbell Performed By: Cherie Jennings, CHRIS, RVT
== END | disposition home or self-care (01) ==
PROVIDERS: PCP Family Medicine; Referring Provider Physician Assistant Medical; Visit Provider Physician Assistant Medical
DX: I42.1 Obstructive hypertrophic cardiomyopathy (principal); Z79.899 Other long term (current) drug therapy
CPT/HCPCS: 93308

== ENCOUNTER → 2023-07-04 | Outpatient (CLI) | payer MEDICARE, SELFPAY ==
--- NOTE | 2023-07-04 16:19 | RAD_ITS ---
STUDY: X-RAY CHEST REASON FOR EXAM: Female, 77 years old. abnormal findings on diagnostic imaging TECHNIQUE: Frontal and lateral views of the chest. COMPARISON: 04/17/2023. FINDINGS: There is hyperinflation of the lungs consistent with chronic obstructive lung disease (COPD). No infiltrates or effusions. Probable mild fibrotic changes in the lung bases. There is no demonstrated pleural abnormality. There is mild cardiac enlargement. Normal mediastinum and mario. Normal visualized pulmonary arteries. There is atherosclerotic calcification of the aortic arch with tortuosity. There are diffuse degenerative changes of the visualized thoracic spine. Normal visualized ribs, clavicles, and shoulders. There is no demonstrated abnormality of the visualized soft tissue structures of the upper abdomen. RAD/Chest PA and Lateral IMPRESSION: There are findings consistent with COPD. There is no evidence of acute chest disease. Electronically Signed: Antoine Hernandes MD at 18:55 EST ,
== END | disposition home or self-care (01) ==
LOC: MTRAD 16:15
PROVIDERS: PCP Family Medicine; Referring Provider Family Medicine; Visit Provider Family Medicine
DX: R93.89 Abnormal findings on diagnostic imaging of other specified body structures (principal)
CPT/HCPCS: 71046

== ENCOUNTER → 2023-07-31 | Outpatient (CLI) | payer MEDICARE, SELFPAY ==
--- NOTE | 2023-07-31 07:56 | CT_ITS ---
STUDY: CT BRAIN WITHOUT CONTRAST REASON FOR EXAM: Female, 77 years old. Intermittent headaches. History of prior intracranial bleed. RADIATION DOSAGE (If Supplied By Facility): CTDIvol = ( 44.99 ) mGy, DLP = ( 846.73 ) mGycm TECHNIQUE: Transaxial CT imaging of the brain was performed without administration of intravenous contrast material. Individualized dose optimization techniques were used for this CT. COMPARISON: Comparison is made with prior study dated April 17, 2023. FINDINGS: Normal soft tissue structures. Normal calvarium. There is mild cerebral atrophy with widening of the extra-axial spaces and ventricular dilatation. There are areas of decreased attenuation within the white matter tracts of the supratentorial brain, consistent with microvascular disease changes. Normal basal ganglia and thalami. Normal brainstem. Normal cerebellum. There is no intracranial hemorrhage. There are no findings of an acute ischemic infarction. Atherosclerotic plaque formation of the vertebral arteries and cavernous portions of the internal carotid arteries bilaterally. Normal visualized paranasal sinuses. CT/Brain/Head without Contrast IMPRESSION: Chronic involutional changes of the brain. Electronically Signed: Pablo Gonzales MD at 8:33 EST ,
--- OUTSIDE RECORDS SUMMARY | 2023-07-31 08:17 | XMS RPT_ITS | CCD ---
Author Name Unknown Address [facility] [facility] [address] [place] [address] Organization [facility] Care Team Providers Care Cylinder Grinder Name Role Phone LIZBETH MCCARTHY DO Primary Care Unavailable MITCHELL MELGAR, DR ALLEN Attending Unavailable MITCHELL MELGAR, DR ALLEN Admitting Unavailable ARLEEN MELGAR, STANFORD Consulting Unavail able Results Test Name Value Interpretation Reference Range Facil ity Encounters Encounter Date Encounter Type Care Provider Facility Start: 04-17-2023 End: 04-18-2023 ambulatory LIZBETH MCCARTHY DO Facility:A Payers Date Payer Category Payer Private Health Insurance [id number] 2023 Unknown [id number] 1945 Unknown [id number] Summary Purpose Family History No Family History Records Found Advance Directives No Advanced Directives Records Found Additional Source Comments INFORMATION SOURCE (unrecogn ized section and content) FOR RECORDS PERTAINING TO PATIENTS WHO ARE OR HAVE BEEN ENROLLED IN A CHEMICAL DEPENDENCY/SUBSTANCEABUSE PROGRAM, SOME INFORMATION MAY BE OMITTED. This clinical summary was aggregated from multiple sources. Caution should be exercised in using it in the provision of clinical care. This summary normalizes information from multiple sources, and as a consequence, information in this document may materially change the coding, format and clinical context of patient data. In addition, data may be omitted in some cases. CLINICAL DECISIONS SHOULD BE BASED ON THE PRIMARY CLINICAL RECORDS. [employer] provides no warranty or guarantee of the accuracy or completeness of information in this document.
== END | disposition home or self-care (01) ==
LOC: CT 07:56
PROVIDERS: PCP Family Medicine; Referring Provider Family Medicine; Visit Provider Family Medicine
DX: R51.9 Headache, unspecified (principal)
CPT/HCPCS: 70450

== ENCOUNTER → 2023-09-05 | Outpatient (CLI) | payer MEDICARE, SELFPAY ==
--- NOTE | 2023-09-05 12:57 | ECHOL_ITS ---
Reason For Study: HOCM- Pt on Camzyos Procedure This was a limited 2D transthoracic echocardiogram. Myocardial strain analysis was performed in this exam to aid in the assessment of cardiac function. Exam performed in department. Left Ventricle Normal LV size. Moderate concentric left ventricular hypertrophy. Left ventricular systolic function is normal. The left ventricular ejection fraction is 75 %. Resting LV gradient 12 mmHg. Valsalva LV gradient 16 mmHg. Mitral Valve Normal mitral valve. Systolic anterior motion of the mitral valve. Mild (1+) mitral valve insufficiency. Tricuspid Valve Normal tricuspid valve. Mild (1+) tricuspid valve insufficiency. Pulmonary artery systolic pressure is 37 mmHg. Aortic Valve Trisinus/trileaflet aortic valve. Mild (1+) eccentric aortic valve insufficiency. Pulmonic Valve Normal pulmonic valve. Great Vessels Normal aortic root. The pulmonary artery is normal size. Normal inferior vena cava. Pericardium/Pleural No pericardial effusion. MMode/2D Measurements & Calculations LVIDd: 3.6 cm IVSd: 1.4 cm Ao root diam: 3.6 cm RVDd: 3.3 cm LVPWd: 0.93 cm LAV(MOD-bp): 49.8 ml LVAd ap4: 24.4 cm2 LVAd ap2: 21.4 cm2 LAV(MOD-bp) Indexed: 28.5 ml/m2 LVLd ap4: 8.1 cm LVLd ap2: 7.5 cm LAV(MOD-sp2): 37.0 ml EDV(MOD-sp4): 62.2 ml EDV(MOD-sp2): 51.1 ml LAV(MOD-sp4): 65.4 ml EDV(sp4-el): 62.2 ml EDV(sp2-el): 51.9 ml LVAs ap4: 11.0 cm2 LVAs ap2: 8.8 cm2 LVLs ap4: 6.7 cm LVLs ap2: 5.9 cm ESV(MOD-sp4): 16.4 ml ESV(MOD-sp2): 11.3 ml ESV(sp4-el): 15.2 ml ESV(sp2-el): 11.3 ml EF(MOD-sp4): 73.6 % EF(MOD-sp2): 77.9 % EF(sp4-el): 75.6 % SV(MOD-sp4): 45.8 ml SV(MOD-sp2): 39.8 ml SV(sp4-el): 47.0 ml LA dimension(2D): 3.7 cm LA A4 area: 21.1 cm2 RA A4 area: 15.9 cm2 Time Measurements MV dec time: 0.27 sec Doppler Measurements & Calculations MV E max atilio: 94.7 cm/sec MV dec slope: 354.4 cm/sec2 Ao V2 max: 186.9 cm/sec MV A max atilio: 127.5 cm/sec Ao max P.0 mmHg MV E/A: 0.74 Ao V2 mean: 133.2 cm/sec Ao mean P.2 mmHg Ao V2 VTI: 48.2 cm AV (velocity ratio): 0.63 AI max atilio: 368.5 cm/sec LV V1 max: 123.0 cm/sec TR max atilio: 287.2 cm/sec AI max P.3 mmHg LV V1 max P.0 mmHg TR max P.0 mmHg AI dec slope: 235.0 cm/sec2 LV V1 mean P.8 mmHg AI P1/2t: 459.2 msec LV V1 mean: 93.1 cm/sec LV V1 VTI: 30.1 cm ECHO/Echo, Limited Study Interpretation Summary Normal LV size. Moderate concentric left ventricular hypertrophy. Left ventricular systolic function is normal. The left ventricular ejection fraction is 75 %. Mild (1+) eccentric aortic valve insufficiency. Resting LV gradient 12 mmHg. Valsalva LV gradient 16 mmHg. Compared to the previous the gradients do not appear to be significantly differ ent. Ordering Physician: Jana Bill Referring Physician: Maryam Campbell Performed By: Alia Bridges RDCS
== END | disposition home or self-care (01) ==
LOC: CVS 12:57
PROVIDERS: PCP Family Medicine; Referring Provider Physician Assistant Medical; Visit Provider Physician Assistant Medical
DX: I42.1 Obstructive hypertrophic cardiomyopathy (principal); Z79.899 Other long term (current) drug therapy
CPT/HCPCS: 93308

== ENCOUNTER → 2023-09-06 | Outpatient (CLI) | payer MEDICARE, SELFPAY ==
[2023-09-06 10:17] LABS: Absolute Lymphocyte Count 2.58 X10^3/uL (0.83-4.51); Absolute Neutrophil Count 3.1 X10^3/uL (2.0-7.7); Basophil# 0.04 X10^3/uL; Basophil% 0.6 % (0-1); Eosinophil# 0.18 X10^3/uL; Eosinophils% 2.7 % (0-5); Hematocrit 45.6 % (37-47); Hemoglobin 14.5 g/dL (12.0-15.0); Lymphocyte # 2.58 X10^3/ul (0.83-4.51); Lymphocyte % 38.1 % (19-41); Mean Corp Hgb Conc 31.8 g/dL (32-36); Mean Corpuscular Hgb 26.6 pg (27.0-32.0); Mean Corpuscular Volume 83.7 fL (81-99); Monocyte# 0.84 X10^3/uL; Monocyte% 12.4 % (0-10); NRBC Flagged by Analyzer 0 % (0-5); Neutrophil # 3.12 X10^3/uL (2.7-7.7); Neutrophil % 45.9 % (47-70); Platelet Count 225 K/mm3 (150-450); RBC Distribution Width CV 14.6 % (11.6-14.6); RBC Distribution Width SD 44.2 fl (35.1-43.9); Red Blood Count 5.45 M/mm3 (4.2-5.4); White Blood Count 6.8 K/mm3 (4.4-11.0)
[2023-09-06 10:39] LABS: AST(SGOT) 22 U/L (15-37); Alanine Aminotransfer ALT/SGPT 26 U/L (13-56); Albumin, Serum 3.5 g/dL (3.2-5.0); Alkaline Phosphatase 66 U/L (45-117); Anion Gap 4 (5-15); BUN 8 mg/dL (7-18); BUN/Creat Ratio 15.5 RATIO (10-20); Calcium,Total 8.5 mg/dL (8.5-10.1); Chloride 102 mmol/L (98-107); Cholesterol 138 mg/dL (200); Creatinine, Serum 0.52 mg/dL (0.55-1.02); EST Glomerular Filtration Rate 122 mL/min (>60); Est Glom Filt Rate - Afr Amer 147 mL/min (>60); Globulin 3.4 g/dL (2.2-4.2); Glucose 96 mg/dL (74-106); High Density Lipoprotein 64 mg/dL; Potassium 4.2 mmol/L (3.5-5.1); Protein, Total 6.9 g/dL (6.4-8.2); Sodium Level 137 mmol/L (136-145); Triglycerides 80 mg/dL; Very Low Density Lipoprotein 16 mg/dL (5-40)
== END | disposition home or self-care (01) ==
LOC: MTLAB 07:49
PROVIDERS: PCP Family Medicine; Referring Provider Family Medicine; Visit Provider Family Medicine
DX: I42.1 Obstructive hypertrophic cardiomyopathy (principal); E78.5 Hyperlipidemia, unspecified
CPT/HCPCS: 36415; 80053; 80061; 85025

== ENCOUNTER → 2023-12-06 | Outpatient (CLI) | payer MEDICARE, SELFPAY ==
--- NOTE | 2023-12-06 07:52 | ECHOL_ITS ---
Reason For Study: HOCM, Patient on Camzyos Procedure This was a 2D Doppler, Color Flow transthoracic echocardiogram. Myocardial strain analysis was performed in this exam to aid in the assessment of cardiac function. Exam performed in department. Left Ventricle Normal LV size. Moderate eccentric left ventricular hypertrophy. Left ventricular systolic function is normal. The left ventricular ejection fraction is 65 %. Resting LV gradient 12 mmHg. Valsalva LV gradient 15 mmHg. No regional wall motion abnormalities noted. Right Ventricle Normal RV size. Normal systolic function. Atria Normal left atrium. Normal right atrium. Mitral Valve Bileaflet diffuse mitral valve thickening. There is mild mitral annular calcification. Systolic anterior motion of the mitral valve. Mild (1+) eccentric mitral valve insufficiency. Tricuspid Valve Normal tricuspid valve. Mild tricuspid valve insufficiency. Pulmonary artery systolic pressure is 43 mmHg. Aortic Valve Trisinus/trileaflet aortic valve. Mild focal aortic valve calcification. Mild (1+) aortic valve insufficiency. Pulmonic Valve Normal pulmonic valve. Great Vessels Normal aortic root. The pulmonary artery is normal size. Inferior vena cava collapse with respiration. Pericardium/Pleural No pericardial effusion. MMode/2D Measurements & Calculations LVIDd: 3.6 cm IVSd: 1.5 cm LAV(MOD-bp): 55.7 ml LVIDs: 1.9 cm LVPWd: 0.96 cm LAV(MOD-bp) Indexed: 31.8 ml/m2 FS: 48.8 % LAV(MOD-sp2): 47.6 ml LAV(MOD-sp4): 62.9 ml SV(MOD-sp4): 38.8 ml SV(sp4-el): 39.7 ml LVAd ap4: 22.1 cm2 LVLd ap4: 7.4 cm EDV(MOD-sp4): 55.0 ml EDV(sp4-el): 56.0 ml LVAs ap4: 10.4 cm2 LVLs ap4: 5.6 cm ESV(MOD-sp4): 16.1 ml ESV(sp4-el): 16.3 ml EF(MOD-sp4): 70.6 % EF(sp4-el): 70.9 % LA A4 area: 20.3 cm2 Doppler Measurements & Calculations Ao V2 max: 160.4 cm/sec LV V1 max: 125.0 cm/sec TR max atilio: 315.1 cm/sec Ao max P.3 mmHg LV V1 max P.3 mmHg TR max P.7 mmHg Ao V2 mean: 117.6 cm/sec Ao mean P.0 mmHg Ao V2 VTI: 38.0 cm ECHO/Echo, Limited Study Interpretation Summary Normal LV size. Moderate eccentric left ventricular hypertrophy. The left ventricular ejection fraction is 65 %. Left ventricular systolic function is normal. Resting LV gradient 12 mmHg. Valsalva LV gradient 15 mmHg. Compared to the previous echo the above gradients are essentially unchanged. Pulmonary artery systolic pressure is 43 mmHg. The global longitudinal strain is mildly abnormal. The global longitudinal stra in = -15.2% (abnormal). Ordering Physician: Jana Bill Referring Physician: Sherry Dotson Performed By: Cherie Jennings, CHRIS, RVT
== END | disposition home or self-care (01) ==
LOC: CVS 07:49
PROVIDERS: PCP Family Medicine; Referring Provider Physician Assistant Medical; Visit Provider Physician Assistant Medical
DX: I10 Essential (primary) hypertension (principal); I42.1 Obstructive hypertrophic cardiomyopathy; Z79.899 Other long term (current) drug therapy
CPT/HCPCS: 93308

== ENCOUNTER → 2024-01-15 | Outpatient (CLI) | payer MEDICARE, SELFPAY ==
--- NOTE | 2024-01-15 08:06 | BI_ITS ---
MAMMOGRAPHY - BILATERAL SCREENING REASON FOR EXAM: Female, 78 years old. Routine annual screening examination. PERTINENT HISTORY: Non-contributory. Remote left excisional breast biopsy. TECHNIQUE: Digital bilateral breast valencia (3D mammographic acquisition) in the CC and MLO projections. 2-D mediolateral oblique (MLO) and craniocaudad (CC) views of both breasts were obtained. CAD: Full Field Digital Mammography with Computer Added Detection was performed. COMPARISON: Comparison is made with prior study January 08, 2023 and January 05, 2022. FINDINGS: Breast Composition: There are scattered areas of fibroglandular density. There are no dominant masses or suspicious calcifications. Stable benign-appearing left axillary lymph nodes. No other significant abnormalities are identified. There has been no significant change since the prior study. BI/SCRN MAMM (CAD)W/VALENCIA BILAT IMPRESSION: Stable bilateral screening mammogram. Yearly follow-up mammogram recommended. (A) ASSESSMENT CATEGORY: BIRADS Category 3: Probably Benign - Short-Interval Follow-up Suggested. A letter regarding these results will be sent to the patient by the facility within 30 days. Approximately 10% of breast cancers are not detected by mammography. A normal mammogram should not delay biopsy of a clinically suspicious abnormality. [id number] Electronically Signed: Pablo Gonzales MD at 9:04 EDT ,
== END | disposition home or self-care (01) ==
LOC: OPBI 08:04
PROVIDERS: PCP Family Medicine; Referring Provider Family Medicine; Visit Provider Family Medicine
DX: Z12.31 Encounter for screening mammogram for malignant neoplasm of breast (principal)
CPT/HCPCS: 77063; 77067

== ENCOUNTER → 2024-03-03 | Outpatient (CLI) | payer MEDICARE, SELFPAY ==
--- NOTE | 2024-03-03 13:00 | ECHOL_ITS ---
Reason For Study: HOCM- PT on camzyos Procedure This was a limited 2D transthoracic echocardiogram. Myocardial strain analysis was performed in this exam to aid in the assessment of cardiac function. Exam performed in department. Left Ventricle Normal LV size. Moderate concentric left ventricular hypertrophy. Left ventricular systolic function is normal. The left ventricular ejection fraction is 70 %. Resting LV gradient 10 mmHg. Valsalva LV gradient 15 mmHg. No regional wall motion abnormalities noted. Right Ventricle Normal RV size. Normal systolic function. Atria Normal left atrium. Normal right atrium. Mitral Valve There is mild to moderate mitral annular calcification. Systolic anterior motion of the mitral valve. Mild (1+) eccentric mitral valve insufficiency. Tricuspid Valve Normal tricuspid valve. Mild (1+) tricuspid valve insufficiency. Pulmonary artery systolic pressure is 40 mmHg. Aortic Valve Mild (1+) aortic valve insufficiency. Pulmonic Valve Normal pulmonic valve. Great Vessels Normal aortic root. The pulmonary artery is normal size. Inferior vena cava collapse with respiration. Pericardium/Pleural No pericardial effusion. MMode/2D Measurements & Calculations LVIDd: 3.9 cm IVSd: 1.4 cm LVOT diam: 2.0 cm LVIDs: 1.6 cm LVPWd: 1.2 cm LVOT area: 3.1 cm2 FS: 58.4 % LAV(MOD-sp2): 42.4 ml LVAd ap4: 24.8 cm2 LVAd ap2: 20.8 cm2 LVLd ap4: 7.8 cm LVLd ap2: 7.7 cm EDV(MOD-sp4): 65.5 ml EDV(MOD-sp2): 47.3 ml EDV(sp4-el): 67.1 ml EDV(sp2-el): 47.5 ml LVAs ap4: 12.6 cm2 LVAs ap2: 9.5 cm2 LVLs ap4: 6.7 cm LVLs ap2: 6.1 cm ESV(MOD-sp4): 20.9 ml ESV(MOD-sp2): 12.3 ml ESV(sp4-el): 20.3 ml ESV(sp2-el): 12.5 ml EF(MOD-sp4): 68.1 % EF(MOD-sp2): 74.0 % EF(sp4-el): 69.8 % SV(MOD-sp4): 44.6 ml SV(MOD-sp2): 35.0 ml SV(sp4-el): 46.8 ml Doppler Measurements & Calculations Ao V2 max: 203.9 cm/sec AI max atilio: 402.8 cm/sec LV V1 max: 140.2 cm/sec Ao max P.6 mmHg AI max P.9 mmHg LV V1 max P.9 mmHg Ao V2 mean: 141.4 cm/sec AI dec slope: 267.4 cm/sec2 LV V1 mean P.1 mmHg Ao mean P.1 mmHg AI P1/2t: 441.2 msec LV V1 mean: 93.3 cm/sec Ao V2 VTI: 42.5 cm LV V1 VTI: 32.0 cm AV (velocity ratio): 0.75 ANANDA(I,D): 2.3 cm2 ANANDA(V,D): 2.1 cm2 SV(LVOT): 99.1 ml TR max atilio: 298.4 cm/sec TR max P.6 mmHg ECHO/Echo, Limited Study Interpretation Summary Normal LV size. Left ventricular systolic function is normal. The left ventricular ejection fraction is 70 %. Resting LV gradient 10 mmHg. Valsalva LV gradient 15 mmHg. Compared to the previous the above is essentially unchanged. The global longitu dinal strain is borderline abnormal. The global longitudinal strain = -16.7% (abnormal). Ordering Physician: Jana Bill Referring Physician: Sherry Dotson Performed By: Alia Bridges RDCS
== END | disposition home or self-care (01) ==
PROVIDERS: PCP Family Medicine; Referring Provider Physician Assistant Medical; Visit Provider Physician Assistant Medical
DX: Z79.899 Other long term (current) drug therapy (principal); I42.1 Obstructive hypertrophic cardiomyopathy
CPT/HCPCS: 93308

== ENCOUNTER → 2024-05-13 | Outpatient (CLI) | payer MEDICARE, SELFPAY ==
--- NOTE | 2024-05-13 10:50 | ECHOL_ITS ---
Reason For Study: HOCM- pt on camzyos Procedure This was a limited 2D transthoracic echocardiogram. Myocardial strain analysis was performed in this exam to aid in the assessment of cardiac function. Exam performed in department. Left Ventricle Normal LV size. Moderate concentric left ventricular hypertrophy. Left ventricular systolic function is normal. The left ventricular ejection fraction is 70 %. Resting LV gradient 9 mmHg. Valsalva LV gradient 13 mmHg. No regional wall motion abnormalities noted. Right Ventricle Normal RV size. Normal systolic function. Aortic Valve Trisinus/trileaflet aortic valve. Mild focal aortic valve calcification. Pericardium/Pleural No pericardial effusion. MMode/2D Measurements & Calculations LVIDd: 3.4 cm IVSd: 1.4 cm Ao root diam: 3.9 cm LVIDs: 1.7 cm LVPWd: 1.2 cm RVDd: 2.9 cm FS: 48.6 % LAV(MOD-bp): 39.5 ml LVAd ap4: 24.5 cm2 LVAd ap2: 24.1 cm2 LAV(MOD-bp) Indexed: 22.5 ml/m2 LVLd ap4: 7.7 cm LVLd ap2: 7.2 cm LAV(MOD-sp2): 40.6 ml EDV(MOD-sp4): 64.3 ml EDV(MOD-sp2): 66.8 ml LAV(MOD-sp4): 37.1 ml EDV(sp4-el): 66.1 ml EDV(sp2-el): 68.5 ml LVAs ap4: 11.6 cm2 LVAs ap2: 11.0 cm2 LVLs ap4: 6.4 cm LVLs ap2: 5.9 cm ESV(MOD-sp4): 17.9 ml ESV(MOD-sp2): 17.6 ml ESV(sp4-el): 17.8 ml ESV(sp2-el): 17.4 ml EF(MOD-sp4): 72.2 % EF(MOD-sp2): 73.7 % EF(sp4-el): 73.0 % SV(MOD-sp4): 46.5 ml SV(MOD-sp2): 49.3 ml SV(sp4-el): 48.3 ml SI(MOD-sp4): 26.5 ml/m2 SI(MOD-sp2): 28.1 ml/m2 LA A4 area: 15.7 cm2 LA dimension(2D): 3.6 cm RA A4 area: 13.3 cm2 Doppler Measurements & Calculations Ao V2 max: 177.3 cm/sec AI max atilio: 393.8 cm/sec LV V1 max: 135.5 cm/sec Ao max P.6 mmHg AI max P.0 mmHg LV V1 max P.4 mmHg Ao V2 mean: 125.3 cm/sec LV V1 mean P.9 mmHg Ao mean P.8 mmHg AI dec slope: 179.1 cm/sec2 LV V1 mean: 93.9 cm/sec Ao V2 VTI: 40.9 cm AI P1/2t: 644.2 msec LV V1 VTI: 31.0 cm AV (velocity ratio): 0.76 TR max atilio: 321.7 cm/sec TR max P.4 mmHg ECHO/Echo, Limited Study Interpretation Summary Normal LV size. Left ventricular systolic function is normal. The left ventricular ejection fraction is 70 %. Valsalva LV gradient 13 mmHg. Moderate concentric left ventricular hypertrophy. Gradients also appear to be very similar. The global longitudinal strain is nor mal. The global longitudinal strain = -19.5 % (normal). Compared to previous study, the left ve ntricular systolic function is the same.. Ordering Physician: Jana Bill Referring Physician: Sherry Dotson Performed By: Alia Bridges, CHRIS
== END | disposition home or self-care (01) ==
LOC: CVS 10:49
PROVIDERS: PCP Family Medicine; Referring Provider Physician Assistant Medical; Visit Provider Physician Assistant Medical
DX: I42.1 Obstructive hypertrophic cardiomyopathy (principal)
CPT/HCPCS: 93308

== ENCOUNTER → 2024-07-16 | Outpatient (CLI) | payer MEDICARE, SELFPAY ==
--- NOTE | 2024-07-16 10:36 | ECHOL_ITS ---
Reason For Study : HOCM-Pt on camzyos Left Ventricle Normal LV size. Moderate concentric left ventricular hypertrophy. The estimated ejection fraction is 60 %. The global longitudinal strain is normal. Resting LV gradient 7 mmHg. Valsalva LV gradient 9 mmHg. No regional wall motion abnormalities noted. Right Ventricle Normal RV size. Normal systolic function. Atria Normal left atrium. Normal right atrium. Mitral Valve There is moderate mitral annular calcification. Systolic anterior motion of the mitral valve. Mild-Moderate (1-2+) eccentric mitral valve insufficiency. Tricuspid Valve Normal tricuspid valve. Aortic Valve Trisinus/trileaflet aortic valve. Mild focal aortic valve calcification. Mild- Moderate (1-2+) aortic valve insufficiency. Pulmonic Valve Normal pulmonic valve. Great Vessels Normal aortic root. The pulmonary artery is normal size. Inferior vena cava collapse with respiration. Pericardium/Pleural No pericardial effusion. MMode/2D Measurements & Calculations EDV(MOD-sp2): 64.7 ml Ao root diam: 3.4 cm EDV(sp4-el): 59.8 ml EDV(MOD-sp4): 58.5 ml EDV(sp2-el): 67.0 ml ESV(MOD-sp4): 24.4 ml ESV(MOD-sp2): 25.3 ml ESV(sp2-el): 25.1 ml ESV(sp4-el): 24.0 ml LA A4 area: 15.3 cm?? FS: 44.4 % IVSd: 1.51 cm LAV(MOD-sp2): 43.7 ml LAV(MOD-bp): 42.0 ml LA dimension(2D): 3.7 cm LVAd ap4: 23.3 cm?? LAV(MOD-sp4): 36.4 ml LAV(MOD-bp) Indexed: 23.4 ml/m?? LVIDd: 3.7 cm LVAs ap2: 13.8 cm?? LVAd ap2: 24.2 cm?? LVLd ap4: 7.7 cm LVIDs: 2.03 cm LVAs ap4: 13.7 cm?? LVLs ap2: 6.5 cm LVLd ap2: 7.4 cm LVPWd: 0.94 cm LVLs ap4: 6.7 cm RVDd: 3.5 cm RA A4 area: 16.7 cm?? Doppler Measurements & Calculations AI dec slope: 293.8 cm/sec?? AI max P.6 mmHg AI max atilio: 417.0 cm/sec Ao max P.9 mmHg Ao mean P.3 mmHg Ao V2 mean: 109.1 cm/sec Ao V2 VTI: 38.6 cm Ao V2 max: 157.5 cm/sec LV V1 max: 111.9 cm/sec LV V1 max P.0 mmHg LV V1 mean P.9 mmHg LV V1 VTI: 28.9 cm LV V1 mean: 81.6 cm/sec TR max atilio: 276.2 cm/sec TR max P.5 mmHg Other Measurements & Calculations AI P1/2t: 415.7 msec EF(MOD-sp4): 58.3 % EF(MOD-sp2): 60.8 % EF(sp4-el): 59.9 % SV(MOD-sp4): 34.1 ml SV(MOD-sp2): 39.3 ml SV(sp4-el): 35.8 ml AV (velocity ratio): 0.75 Conclusions The global longitudinal strain is normal. The global longitudinal strain = -17.4 % (normal). Normal LV size. Moderate concentric left ventricular hypertrophy. The estimated ejection fraction is 60 %. Mild-Moderate (1-2+) eccentric mitral valve insufficiency. Valsalva LV gradient 9 mmHg. Compared to the previous the above findings are unchanged Ordering Physician: Jana Bill Performed By: Alia Bridges RDCS Electronically signed by: Lorenzo Gastelum MD 07/16/2024, 3: 25 PM
== END | disposition home or self-care (01) ==
LOC: CVS 10:36
PROVIDERS: PCP Family Medicine; Referring Provider Physician Assistant Medical; Visit Provider Physician Assistant Medical
DX: Z79.899 Other long term (current) drug therapy (principal)
CPT/HCPCS: 93308

== ENCOUNTER 2024-08-12 15:11 | Emergency (ER) | payer MEDICARE, SELFPAY ==
[2024-08-12 15:12] VITALS: BP 129/84; PULSE 78; RESP 15; TEMP 36.4; O2SAT 94; BMI 26.6
--- NOTE | 2024-08-12 15:51 | CT_ITS ---
EXAM: BRAIN/HEAD WITHOUT CONTRAST CLINICAL HISTORY: HEAD INJURY COMPARISON: 16 July 2024 TECHNIQUE: Noncontrast head CT performed. Coronal and sagittal reconstructions performed FINDINGS: Global volume loss and patchy periventricular small-vessel ischemic change. Vascular calcification. No acute hemorrhage. No mass effect or midline shift. Stable ventricular size. CT/Brain/Head without Contrast IMPRESSION: Stable examination with chronic small vessel ischemic change and senescent king ge. No evidence of acute hemorrhage. Reading Location: [facility]
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
== END 2024-08-12 17:09 | disposition home or self-care (01) ==
LOC: ED 16:42
PROVIDERS: Emergency Provider Emergency Medicine; PCP Family Medicine; Visit Provider Emergency Medicine
DX: S09.90XA Unspecified injury of head, initial encounter (principal); F07.81 Postconcussional syndrome; Z90.710 Acquired absence of both cervix and uterus; I25.10 Atherosclerotic heart disease of native coronary artery without angina pectoris; I10 Essential (primary) hypertension; E78.5 Hyperlipidemia, unspecified; W01.10XA Fall on same level from slipping, tripping and stumbling with subsequent striking against unspecified object, initial encounter; Y92.89 Other specified places as the place of occurrence of the external cause; F41.1 Generalized anxiety disorder; Z79.899 Other long term (current) drug therapy; Z98.49 Cataract extraction status, unspecified eye; Z98.51 Tubal ligation status
CPT/HCPCS: 70450; 99282

== ENCOUNTER → 2024-09-09 | Outpatient (CLI) | payer MEDICARE, SELFPAY ==
[2024-09-09 10:25] LABS: Absolute Lymphocyte Count 2.58 X10^3/uL (0.83-4.51); Absolute Neutrophil Count 3.8 X10^3/uL (2.0-7.7); Basophil# 0.04 X10^3/uL; Basophil% 0.5 % (0-1); Eosinophil# 0.19 X10^3/uL; Eosinophils% 2.6 % (0-5); Hematocrit 43.1 % (37-47); Hemoglobin 14.2 g/dL (12.0-15.0); Lymphocyte # 2.58 X10^3/ul (0.83-4.51); Lymphocyte % 34.9 % (19-41); Mean Corp Hgb Conc 32.9 g/dL (32-36); Mean Corpuscular Hgb 28.7 pg (27.0-32.0); Mean Corpuscular Volume 87.1 fL (81-99); Mean Platelet Vol. 11.4 fl (6.2-12.0); Monocyte# 0.75 X10^3/uL; Monocyte% 10.1 % (0-10); NRBC Flagged by Analyzer 0 % (0-5); Neutrophil # 3.79 X10^3/uL (2.7-7.7); Neutrophil % 51.4 % (47-70); Platelet Count 247 K/mm3 (150-450); RBC Distribution Width CV 13.3 % (11.6-14.6); RBC Distribution Width SD 42.8 fl (35.1-43.9); Red Blood Count 4.95 M/mm3 (4.2-5.4); White Blood Count 7.4 K/mm3 (4.4-11.0)
[2024-09-09 14:49] LABS: ALB/GLOB Ratio 1.4 RATIO (0.9-2.4); AST(SGOT) 23 U/L (<=31); Alanine Aminotransfer ALT/SGPT 22 U/L (<=34); Albumin, Serum 4.2 g/dL (3.4-4.8); Alkaline Phosphatase 72 U/L (35-104); Anion Gap 11 (5-15); BUN 13 mg/dL (4-19); BUN/Creat Ratio 24.8 RATIO (10-20); Calcium,Total 9.5 mg/dL (7.6-11.0); Carbon Dioxide 29.5 mmol/L (21.0-32.0); Chloride 99 mmol/L (98-108); Cholesterol 152 mg/dL (<=200); Creatinine, Serum 0.54 mg/dL (0.70-1.20); EST Glomerular Filtration Rate 93 (>60); Globulin 2.9 g/dL (2.2-4.2); Glucose 105 mg/dL (70-99); High Density Lipoprotein 69 mg/dL; Low Density Lipoprotein Calc. 66 mg/dL; Potassium 4.8 mmol/L (3.3-5.1); Protein, Total 7.2 g/dL (5.9-8.4); Sodium Level 140 mmol/L (133-145); Total Bilirubin 0.33 mg/dL (0.00-1.30); Triglycerides 84 mg/dL; Very Low Density Lipoprotein 17 mg/dL (5-40)
== END | disposition home or self-care (01) ==
LOC: MTLAB 07:29
PROVIDERS: PCP Family Medicine; Referring Provider Family Medicine; Visit Provider Family Medicine
DX: I42.1 Obstructive hypertrophic cardiomyopathy (principal); E78.5 Hyperlipidemia, unspecified
CPT/HCPCS: 36415; 80053; 80061; 85025

== ENCOUNTER → 2024-09-25 | Outpatient (CLI) | payer MEDICARE, SELFPAY ==
--- NOTE | 2024-09-25 07:46 | ECHOL_ITS ---
Reason For Study Reason For Study: HOCM- Pt on Camzyos Procedure This was a limited 2D transthoracic echocardiogram. Myocardial strain analysis was performed in this exam to aid in the assessment of cardiac function. Exam performed in department. Left Ventricle Normal LV size. The left ventricular ejection fraction is 65 %. Resting LV gradient 6 mmHg. Valsalva LV gradient 8 mmHg. No regional wall motion abnormalities noted. Right Ventricle Normal RV size. Normal systolic function. Atria Normal left atrium. Normal right atrium. Mitral Valve There is moderate mitral annular calcification. Systolic anterior motion of the mitral valve. Mild-Moderate (1-2+) eccentric mitral valve insufficiency. Tricuspid Valve Normal tricuspid valve. Aortic Valve Trisinus/trileaflet aortic valve. Mild focal aortic valve calcification. Mild- Moderate (1-2+) eccentric aortic valve insufficiency. Pulmonic Valve Normal pulmonic valve. Great Vessels Normal aortic root. The pulmonary artery is normal size. Inferior vena cava collapse with respiration. Pericardium/Pleural No pericardial effusion. MMode/2D Measurements & Calculations LVIDd: 4.0 cm IVSd: 1.4 cm LVOT diam: 2.0 cm LVIDs: 2.1 cm LVPWd: 1.2 cm LVOT area: 3.2 cm2 RVDd: 3.3 cm FS: 47.7 % Ao root diam: 4.2 cm LAV(MOD-bp): 37.1 ml LVAd ap4: 24.8 cm2 LAV(MOD-bp) Indexed: 20.7 ml/m2 LVLd ap4: 8.0 cm LAV(MOD-sp2): 43.9 ml EDV(MOD-sp4): 63.9 ml LAV(MOD-sp4): 31.0 ml EDV(sp4-el): 65.4 ml LVAs ap4: 14.2 cm2 LVLs ap4: 6.9 cm ESV(MOD-sp4): 25.2 ml ESV(sp4-el): 24.8 ml EF(MOD-sp4): 60.6 % EF(sp4-el): 62.0 % LVAd ap2: 25.2 cm2 SV(MOD-sp4): 38.7 ml SV(MOD-sp2): 49.4 ml LVLd ap2: 7.7 cm SI(MOD-sp4): 21.6 ml/m2 SI(MOD-sp2): 27.5 ml/m2 EDV(MOD-sp2): 71.4 ml EDV(sp2-el): 70.3 ml LVAs ap2: 13.0 cm2 LVLs ap2: 6.7 cm ESV(MOD-sp2): 22.0 ml ESV(sp2-el): 21.5 ml EF(MOD-sp2): 69.2 % SV(sp4-el): 40.5 ml LA dimension(2D): 3.5 cm LA A4 area: 14.4 cm2 RA A4 area: 14.8 cm2 Doppler Measurements & Calculations Ao V2 max: 187.5 cm/sec AI max atilio: 430.6 cm/sec LV V1 max: 137.7 cm/sec Ao max P.1 mmHg AI max P.2 mmHg LV V1 max P.6 mmHg Ao V2 mean: 119.1 cm/sec LV V1 mean P.1 mmHg Ao mean P.4 mmHg AI dec slope: 273.2 cm/sec2 LV V1 mean: 96.8 cm/sec Ao V2 VTI: 42.1 cm AI P1/2t: 461.7 msec LV V1 VTI: 34.5 cm AV (velocity ratio): 0.82 ANANDA(I,D): 2.6 cm2 ANANDA(V,D): 2.4 cm2 SV(LVOT): 111.5 ml ECHO/Echo, Limited Study Interpretation Summary Normal LV size. The left ventricular ejection fraction is 65 %. Resting LV gradient 6 mmHg. Valsalva LV gradient 8 mmHg. Compared to the previous the above gradients are unchanged essentially. The jacob bal longitudinal strain is normal. The global longitudinal strain = -18.6 % (normal). Ordering Physician: Jana Bill Referring Physician: Sherry Dotson Performed By: Alia Bridges RDCS
== END | disposition home or self-care (01) ==
LOC: CVS 07:46
PROVIDERS: PCP Family Medicine; Referring Provider Physician Assistant Medical; Visit Provider Physician Assistant Medical
DX: Z79.899 Other long term (current) drug therapy (principal)
CPT/HCPCS: 93308

== ENCOUNTER → 2025-01-18 | Outpatient (CLI) | payer MEDICARE, SELFPAY ==
--- NOTE | 2025-01-18 14:45 | BI_ITS ---
EXAM: SCRN MAMM (CAD)W/VALENCIA BILAT DATE: 01/18/2025 CLINICAL HISTORY: F, Age 79 y/o , SCREENING TECHNIQUE: SCRN MAMM (CAD)W/VAL[place]IA BILAT COMPARISON: Mammogram studies dated 01/15/2024 FINDINGS: TISSUE DENSITY: There are scattered areas of fibroglandular density. Bilateral Breast Mammographic Findings: No suspicious masses, suspicious cluster of microcalcifications, architectural distortion or secondary sign of malignancy is identified in either breast. Benign-appearing round microcalcifications are seen in both breasts. A benign macrocalcification is seen in the right breast. BI/SCRN MAMM (CAD)W/VAL[facility]IA BILAT IMPRESSION: Benign screening mammogram. OVERALL FINAL ASSESSMENT BI-RADS 2: BENIGN RECOMMENDATION: Routine annual follow-up in 1 Year A letter with findings and recommendations will be mailed to the patient. Reading Location: [id number]
== END | disposition home or self-care (01) ==
LOC: OPBI 14:44
PROVIDERS: PCP Family Medicine; Referring Provider Family Medicine; Visit Provider Family Medicine
DX: Z12.31 Encounter for screening mammogram for malignant neoplasm of breast (principal)
CPT/HCPCS: 77063; 77067

== ENCOUNTER → 2025-03-24 | Outpatient (CLI) | payer MEDICARE, SELFPAY ==
--- NOTE | 2025-03-24 13:55 | ECHOL_ITS ---
Reason For Study Reason For Study: HOCM- Pt on Camzyos Procedure This was a limited 2D transthoracic echocardiogram. Myocardial strain analysis was performed in this exam to aid in the assessment of cardiac function. Exam performed in department. Left Ventricle Normal LV size. The left ventricular ejection fraction is 65 %. Resting LV gradient 9 mmHg. Valsalva LV gradient 10 mmHg. No regional wall motion abnormalities noted. Right Ventricle Normal RV size. Normal systolic function. Atria Normal left atrium. Normal right atrium. Mitral Valve Bileaflet diffuse mitral valve thickening. Systolic anterior motion of the mitral valve. Mild (1+) eccentric mitral valve insufficiency. Tricuspid Valve Normal tricuspid valve. Aortic Valve Trisinus/trileaflet aortic valve. Mild focal aortic valve thickening. Mild (1+) aortic valve insufficiency. Pulmonic Valve Normal pulmonic valve. Great Vessels Normal aortic root. The pulmonary artery is normal size. Inferior vena cava collapse with respiration. Pericardium/Pleural No pericardial effusion. MMode/2D Measurements & Calculations LVIDd: 3.9 cm IVSd: 1.4 cm Ao root diam: 3.4 cm LVIDs: 2.2 cm LVPWd: 1.2 cm FS: 43.9 % LAV(MOD-bp): 54.3 ml LVAd ap4: 28.7 cm2 LVAd ap2: 25.8 cm2 LAV(MOD-bp) Indexed: 30.4 ml/m2 LVLd ap4: 7.8 cm LVLd ap2: 7.3 cm LAV(MOD-sp2): 31.8 ml EDV(MOD-sp4): 86.9 ml EDV(MOD-sp2): 73.5 ml LAV(MOD-sp4): 86.5 ml EDV(sp4-el): 89.6 ml EDV(sp2-el): 77.1 ml LVAs ap4: 16.8 cm2 LVAs ap2: 14.9 cm2 LVLs ap4: 6.8 cm LVLs ap2: 6.7 cm ESV(MOD-sp4): 34.6 ml ESV(MOD-sp2): 28.1 ml ESV(sp4-el): 34.9 ml ESV(sp2-el): 28.2 ml EF(MOD-sp4): 60.1 % EF(MOD-sp2): 61.7 % EF(sp4-el): 61.1 % SV(MOD-sp4): 52.2 ml SV(MOD-sp2): 45.3 ml SV(sp4-el): 54.7 ml SI(MOD-sp4): 29.3 ml/m2 SI(MOD-sp2): 25.4 ml/m2 LA A4 area: 23.3 cm2 LA dimension(2D): 3.9 cm RA A4 area: 16.1 cm2 Doppler Measurements & Calculations Ao V2 max: 175.6 cm/sec AI max atilio: 438.6 cm/sec LV V1 max: 136.6 cm/sec Ao max P.3 mmHg AI max P.9 mmHg LV V1 max P.5 mmHg Ao V2 mean: 121.6 cm/sec LV V1 mean P.0 mmHg Ao mean P.5 mmHg AI dec slope: 311.3 cm/sec2 LV V1 mean: 93.3 cm/sec Ao V2 VTI: 39.7 cm AI P1/2t: 412.6 msec LV V1 VTI: 34.1 cm AV (velocity ratio): 0.86 ECHO/Echo, Limited Study Interpretation Summary Normal LV size. The left ventricular ejection fraction is 65 %. Bileaflet diffuse mitral valve thickening. Systolic anterior motion of the mitral valve. Mild (1+) aortic valve insufficiency. Valsalva LV gradient 10 mmHg. Compared to the previous this finding is unchanged. The global longitudinal str ain is normal. The global longitudinal strain = -18.1 % (normal). Ordering Physician: Jana Bill Referring Physician: Sherry Dotson Performed By: Alia Bridges RDCS
== END | disposition home or self-care (01) ==
LOC: CVS 13:55
PROVIDERS: PCP Family Medicine; Referring Provider Physician Assistant Medical; Visit Provider Physician Assistant Medical
DX: I42.1 Obstructive hypertrophic cardiomyopathy (principal)
CPT/HCPCS: 93308